=== PATIENT | male | born 1945 | race Caucasian/White ===

== ENCOUNTER 2017-01-05 15:15 | Emergency (ER) | payer MEDICARE, OTHER ==
[2017-01-05 15:28] VITALS: BP 143/73; PULSE 60; TEMP 98.1; BMI 39.9
--- NOTE | 2017-01-05 15:28 | PDOC ---
Rapid Medical Evaluation Time Seen by Provider: 01/05/17 15:23 Medical Evaluation: Allergies Allergy/AdvReac Type Severity Reaction Status Date / Time metoprolol AdvReac Intermediate Verified 01/05/17 15:24 01/05/17 15:27 I have performed a brief in-person evaluation of this patient. The patient presents with a chief complaint of: 71y/o M cardiac hx and COPD p/w 1 wk cough, SOB. int chest pain Pertinent physical exam findings: afebrile, normal O2 sat good air entry, no wheezing I have ordered the following: cardiac workup: labs, ekg, cxr The patient will proceed to the ED for further evaluation.
[2017-01-05 15:56] LABS: INR 2.86 (0.82-1.09); PROTHROMBIN TIME (PATIENT) 32.1 SEC (9.98-11.88)
--- NOTE | 2017-01-05 16:35 | PDOC ---
[id number] is a 71 year old female with a past medical history of COPD, A- Fib( on coumadin) s/p pacemaker ,HTN, hypercholesterolemia, hypothyroidism, unspecified prostate problems Presents with a complaint of intermittent SOB over the past week. Milady lives with a baseline shortness of breath and exercise intolerance secondary to his COPD. Starting about a week ago he states his shortness of breath and exercise tolerance has been getting worse. Patient reports worsened orthopnea Patient uses his albuterol at home with minimal relief of symptoms. Patient reports a productive cough with white sputum and occasional episodes of blood tinged sputum. When patient coughs blood, he reports they are small globs Patient had a fever one week ago which was relieved with aspirin. Mild lightheadedness but no loss of consciousness. He reports congestion. Denies diarrhea, Hematochezia or constipation. Denies urinary urgency, frequency. Hematuria or dysuria. Denies nausea, vomiting. Denies abdominal pain, chest pain. 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 Patient has a history of smoking of 35 years , 1-2 packs a day, Quit 17 years ago. No significant weight loss <Jim Still - Last Filed: 01/05/17 18:03> - General History Source: Patient Exam Limitations: No Limitations <Judah Gruber - Last Filed: 01/08/17 19:48> - General Chief Complaint: Hemoptysis Stated Complaint: SOB, COUGH Time Seen by Provider: 01/05/17 15:23 Past History <Jim Still - Last Filed: 01/05/17 18:03> - Past Medical History Asthma: Yes Cancer: No Cardiac Disorders: Yes (AFIB, PM.) CVA: No COPD: Yes Dementia: No Diabetes: No GI Disorders: No Disorders: No HTN: Yes Hypercholesterolemia: Yes Liver Disease: No Suicide Attempt (Hx): No Seizures: No Thyroid Disease: Yes (hypothyroid) - Surgical History Abdominal Surgery: No Appendectomy: No Cardiac Surgery: Yes (PACEMAKER.) Cholecystectomy: No Lung Surgery: No Neurologic Surgery: No Orthopedic Surgery: Yes (hand sx) - Family Disease History Family Disease History: Other: Mother (non contibutory) - Immunization History Immunization Up to Date: Yes - Psycho/Social/Smoking Cessation Hx Anxiety: No Suicidal Ideation: No Smoking Status: No Smoking History: Former smoker Years of Tobacco Use: 40 Have you smoked in the past 12 months: No Number of Cigarettes Smoked Daily: 0 If you are a former smoker, when did you quit?: 1998 Information on smoking cessation initiated: No Hx Alcohol Use: No Drug/Substance Use Hx: No Substance Use Type: None Hx Substance Use Treatment: No <Judah Gruber - Last Filed: 01/08/17 19:48> - Past Medical History Allergies/Adverse Reactions: Allergies Allergy/AdvReac Type Severity Reaction Status Date / Time metoprolol AdvReac Intermediate Verified 01/05/17 15:24 Home Medications: Ambulatory Orders Cholecalciferol (Vitamin D3) [Vitamin D3] 2,000 unit PO DAILY 03/06/15 Dutasteride/Tamsulosin HCl [Jazmin 0.5-0.4 mg Capsule] 1 each PO PRN 03/06/15 Furosemide [Lasix -] 20 mg PO DAILY 03/06/15 Montelukast Na [Singulair -] 10 mg PO HS 03/06/15 Olmesartan Medoxomil [Benicar -] 20 mg PO BID 03/06/15 Tiotropium Roca [Spiriva] 1 inh PO DAILY PRN 03/06/15 Warfarin Sodium [Coumadin] 4 mg PO HS 10/02/16 Albuterol 0.083% Nebulizer Wendy [Ventolin 0.083% Nebulizer Soln -] 1 neb NEB Q6H 01/05/17 Azithromycin [Zithromax 250mg Tablets -] 250 mg PO DAILY #30 tab 01/05/17 Diltiazem Cd [Cardizem Cd -] 180 mg PO DAILY 01/05/17 Guaifenesin AC [Robitussin AC -] 5 ml PO BID #1 bottle MDD 10 01/05/17 Levothyroxine [Synthroid -] 50 mcg PO DAILY 01/05/17 Salmeterol/Fluticasone [Advair 250Mcg/50Mcg] 1 inh PO BID 01/05/17 Respiratory Specific PMHX - Complaint Specific PMHX Angina: No Bronchitis: No Pneumonia: Yes (recent in July) Pulmonary Embolus: No TB (Tuberculosis): No <Judah Gruber - Last Filed: 01/08/17 19:48> Review of Systems - Review of Systems Able to Perform ROS?: Yes Comments:: 01/05/17 18:04 CONSTITUTIONAL: Reports: fever No reported: Chills, Diaphoresis, Generalized Weakness, Malaise, Loss of Appetite HEENT: Reports: Nasal Congestion, No reported: Rhinorrhea, Throat Pain, Throat Swelling, Difficulty Swallowing, Mouth Swelling, Ear Pain, Eye Pain, Visual Changes CARDIOVASCULAR: No reported: Chest Pain, Syncope, Palpitations, Irregular Heart Rate, Lightheadedness, Peripheral Edema RESPIRATORY: Reports: Cough, Hemoptysis, , Orthopnea, Shortness of Breath, SOB with Exertion, No reported: Wheezing, Stridor, GASTROINTESTINAL: No reported: Abdominal pain, Abdominal Distension, Nausea, Vomiting, Diarrhea, Constipation, Melena, Hematochezia GENITOURINARY: No reported: Dysuria, Frequency, Urgency, Hesitancy, Flank Pain, Genital Pain MUSCULOSKELETAL: No reported: Myalgia, Arthralgia, Joint Swelling, Back pain, Neck Pain SKIN: No reported: Rash, Itching, Pallor HEMEATOLOGIC/IMMUNOLOGIC: No reported: Easy Bleeding, Easy Bruising, Lymphadenopathy, Frequent infections ENDOCRINE: No reported: Unexplained Weight Gain, Unexplained Weight Loss, Heat Intolerance , Cold Intolerance NEUROLOGIC: Reports: Lightheadedness, No reported: Headache, Focal Weakness, Paresthesias, Vertigo, Unsteady Gait, Seizure, Mental Status Changes, Incontinence PSYCHIATRIC: No reported: Anxiety, Depression <Jim Still - Last Filed: 01/05/17 18:03> *Physical Exam - Vital Signs Last Vital Signs Temp Pulse Resp BP Pulse Ox 98.1 F 60 20 143/73 98 01/05/17 15:24 01/05/17 16:42 01/05/17 16:42 01/05/17 15:24 01/05/17 16:42 - Physical Exam Comments: 01/05/17 18:04 GENERAL: Obese : The patient is awake, alert, and fully oriented, Nontoxic - in no acute distress. HEAD: Normocephalic, atraumatic. EYES: extraocular movements intact, sclera anicteric, conjunctiva clear. ENT: Normal voice, Moist mucous membranes. NECK: Normal range of motion, supple LUNGS: Breath sounds equal, clear to auscultation bilaterally. No wheezes, no rhonchi, no rales. HEART: Regular rate and rhythm, without murmur, rub or gallop. ABDOMEN: Soft, nontender, normoactive bowel sounds. No guarding, no rebound.No CVA tenderness EXTREMITIES: Normal range of motion, Trace pitting edema bilaterally, negative homans sign . No clubbing or cyanosis. No cords, erythema, or tenderness. NEUROLOGICAL: No facial assymetry, Normal speech, PSYCH: Normal mood, normal affect. SKIN: Warm, Dry, normal turg <Jim Still - Last Filed: 01/05/17 18:03> - Vital Signs Last Vital Signs Temp Pulse Resp BP Pulse Ox 98.1 F 60 22 143/73 98 01/05/17 15:24 01/05/17 15:24 01/05/17 15:24 01/05/17 15:24 01/05/17 15:24 <Judah Gruber - Last Filed: 01/08/17 19:48> Heart Score/ECG Review - ECG Impressions Comment:: 01/05/17 18:36 Twelve-lead EKG was performed and reviewed by me. EKG performed: 15:39 Paced ventricular rhythm Rate of 60 No signs of ischemia via Sgarbossa criteria <Judah Gruber - Last Filed: 01/08/17 19:48> ED Treatment Course - ADDITIONAL ORDERS Additional order review: Laboratory Results 01/05/17 15:25 INR 2.86 H D - Medications Given in the ED: ED Medications Discontinued Medications Generic Name Dose Route Start Last Admin Trade Name Freq PRN Reason Stop Dose Admin Guaifenesin/Codeine Phosphate 5 ml 01/05/17 17:34 01/05/17 17:36 Robitussin Ac - PO 01/05/17 17:35 5 ml ONCE ONE Administration <Jim Still - Last Filed: 01/05/17 18:03> - LABORATORY CBC & Chemistry Diagram: 01/05/17 18:30 01/05/17 18:30 <Judah Gruber - Last Filed: 01/08/17 19:48> Medical Decision Making - Medical Decision Making 01/05/17 17:26 71y M hx of copd, asthma, afib s/p pm on coumadin, htn, hl, presents with complaint of increasing sob for the past 2 weeks associated with intermittne nasal congestion, cough productive of yellowish sputum that is occasionally blood tinged - no associtated cp, batres, leg swelling. on exam pt well appearing in no distress, lungs are clear, vitals normal. based on sypmtoms suspect possible viral syndrome vs. pna, consider possible pe, however unlikely clinically based on history and that pt is already on a/c. will ck inr to r/o supratherapeutic effect will obtain ekg to r/o arrythmia cxr to r/o pna A portion of this note was documented by scribe services under my direction. I have reviewed the details of the note, within reason, and agree with the documentation with the following case summary and management plan written by me 01/05/17 18:36 pt feeling well inr therapeutic awaiting rest of blood work to come back no pna on cxr pt was abmulating around the ED without any sob or batres suspet her symptoms due to viral syndrome will sign out to dr. johnson to fu with blood work <Judah Gurber - Last Filed: 01/08/17 19:48> *DC/Admit/Observation/Transfer - Attestations Scribe Attestion: 01/05/17 18:04 Documentation prepared by Jim Still, acting as medical affairs director for Judah Gruber MD <Jim Still - Last Filed: 01/05/17 18:03> <Judah Gruber - Last Filed: 01/08/17 19:48> Diagnosis at time of Disposition: Bronchitis, Cough - Discharge Dispostion Disposition: HOME Condition at time of disposition: Stable - Prescriptions Prescriptions: Guaifenesin AC [Robitussin AC -] 5 ml PO BID #1 bottle MDD 10 Azithromycin [Zithromax 250mg Tablets -] 250 mg PO DAILY #30 tab - Referrals Referrals: Angeles Pulliam MD [Primary Care Provider] - - Patient Instructions Printed Discharge Instructions: DI for Cough -- Adult, DI for Acute Bronchitis
[2017-01-05] MEDS ORDERED: guaiFENesin/CODEINE 10 ML UNIT-DOSE CUPS PO ONE (17:25)
[2017-01-05] MEDS ORDERED: guaiFENesin/CODEINE 5 ML UNIT-DOSE CUPS PO ONE ×2 (17:34→17:35)
[2017-01-05 18:42] LABS: BASOPHIL 0.7 % (0-2.0); EOSINOPHIL 3.8 % (0-4.5); MCH 28.5 pg (25.7-33.7); MCHC 33.1 g/dl (32.0-35.9); MEAN CELL VOLUME 86.1 fl (80-96); MEAN PLT VOLUME 8.3 fl (7.5-11.1); NEUTROPHILS 56.4 % (42.8-82.8); PLATELET COUNT 185 K/MM3 (134-434); RDW 15.5 % (11.9-15.9); WHITE BLOOD COUNT 4.4 K/mm3 (4.0-10.0)
[2017-01-05 19:17] LABS: ALBUMIN 3.8 g/dl (3.4-5.0); ANION GAP 9 (8-16); BILIRUBIN,TOTAL 0.4 mg/dL (0.2-1.0); CALCIUM 8.6 mg/dL (8.5-10.1); CO2 26 mmol/L (21-32); CREATININE 1.2 mg/dL (0.7-1.3); GLUCOSE,RANDOM 106 mg/dL (74-106); SGOT/AST 37 U/L (15-37); SGPT/ALT 43 U/L (12-78); TOT PROT 7.2 g/dl (6.4-8.2)
[2017-01-05 19:20] LABS: ALK PHOS 69 U/L (45-117); TROPONIN I < 0.02 ng/ml (0.00-0.05)
--- NOTE | 2017-01-05 20:13 | PDOC ---
*Physical Exam - Vital Signs Last Vital Signs Temp Pulse Resp BP Pulse Ox 98.1 F 60 20 143/73 98 01/05/17 15:24 01/05/17 16:42 01/05/17 16:42 01/05/17 15:24 01/05/17 16:42 ED Treatment Course - LABORATORY CBC & Chemistry Diagram: 01/05/17 18:30 01/05/17 18:30 - ADDITIONAL ORDERS Additional order review: Laboratory Results 01/05/17 01/05/17 18:30 15:25 INR 2.86 H D Sodium 141 Potassium 4.4 D Chloride 106 Carbon Dioxide 26 Anion Gap 9 BUN 14 D Creatinine 1.2 D Creat Clearance w eGFR 59.51 Random Glucose 106 Calcium 8.6 Total Bilirubin 0.4 D AST 37 D ALT 43 Alkaline Phosphatase 69 D Creatine Kinase 146 Troponin I < 0.02 B-Natriuretic Peptide 673.85 H Total Protein 7.2 Albumin 3.8 01/05/17 18:30 RBC 4.38 MCV 86.1 MCHC 33.1 RDW 15.5 MPV 8.3 Neutrophils % 56.4 Lymphocytes % 27.7 D Monocytes % 11.4 H Eosinophils % 3.8 Basophils % 0.7 - Medications Given in the ED: ED Medications Discontinued Medications Generic Name Dose Route Start Last Admin Trade Name Freq PRN Reason Stop Dose Admin Guaifenesin/Codeine Phosphate 10 ml 01/05/17 17:25 01/05/17 18:11 Robitussin Ac - PO 01/05/17 17:26 Not Given ONCE ONE Guaifenesin/Codeine Phosphate 5 ml 01/05/17 17:34 01/05/17 17:36 Robitussin Ac - PO 01/05/17 17:35 5 ml ONCE ONE Administration Medical Decision Making - Medical Decision Making 01/05/17 20:[address] Yuliana Poole. Patient to increase his Lasix for the next 3 days. patient to follow up in the office tomorrow. Prescriptions transmitted to Pharmacy by Dr. Gruber. *DC/Admit/Observation/Transfer Diagnosis at time of Disposition: Bronchitis, Cough - Discharge Dispostion Disposition: HOME Condition at time of disposition: Stable Admit: No - Prescriptions Prescriptions: Guaifenesin AC [Robitussin AC -] 5 ml PO BID #1 bottle MDD 10 Azithromycin [Zithromax 250mg Tablets -] 250 mg PO DAILY #30 tab - Referrals Referrals: Angeles Pulliam MD [Primary Care Provider] - - Patient Instructions Printed Discharge Instructions: DI for Cough -- Adult, DI for Acute Bronchitis - Post Discharge Activity
--- NOTE | 2017-01-06 14:14 | EKG ---
Test Reason : Blood Pressure : / mmHG Vent. Rate : 060 BPM Atrial Rate : 340 BPM P-R Int : 000 ms QRS Dur : 168 ms QT Int : 460 ms P-R-T Axes : 000 -83 068 degrees QTc Int : 460 ms Ventricular-paced rhythm ABNORMAL ECG WHEN COMPARED WITH ECG OF 02-OCT-2016 03:54, ELECTRONIC VENTRICULAR PACEMAKER HAS REPLACED WIDE QRS RHYTHM Confirmed by MICHAEL OROZCO MD ([id number]) on 01/06/2017 2:14:33 PM Referred By: Confirmed By:MICHAEL OROZCO MD
== END 2017-01-05 20:18 | disposition home or self-care (01) ==
LOC: JER 15:15
DX: J20.9 Acute bronchitis, unspecified (principal); I10 Essential (primary) hypertension; I48.91 Unspecified atrial fibrillation; Z79.01 Long term (current) use of anticoagulants; E78.00 Pure hypercholesterolemia, unspecified; E03.9 Hypothyroidism, unspecified; J44.9 Chronic obstructive pulmonary disease, unspecified
CPT/HCPCS: 36415; 71020-TC; 80053; 82550; 83880; 84484; 85025; 85610; 93005; 93010; 99282-25

== ENCOUNTER 2017-08-05 01:50 | Emergency (ER) | payer MEDICARE, OTHER ==
--- NOTE | 2017-08-05 02:10 | PDOC ---
History of Present Illness - General History Source: Patient Exam Limitations: No Limitations - History of Present Illness Initial Comments: 08/05/17 02:15 Patient is a 72 year old with pmhx of COPD, A-Fib( on coumadin) s/p pacemaker , HTN, hypercholesterolemia, and hypothyroidism who presents to the ED with SOB and high BP since 10 PM after eating a small meal. He denies any cp, but reports palpitations and SOB. He also reports sudden swelling of the dorsal aspect of the right wrist. He denies any trauma. He denies any fever or chills. He denies n/v/d or abdominal pain. All - metoprolol PCP - Dr. Juan Pulliam Sheriff Detective - Dr. Smith <Adelina Hull - Last Filed: 08/05/17 02:20> - General History Source: Patient <Arias Mendenhall - Last Filed: 08/05/17 04:40> - General Stated Complaint: DIFFICULTY BREATHING, HIGH BLOOD PRESSURE Time Seen by Provider: 08/05/17 02:07 Past History <Adelina Hull - Last Filed: 08/05/17 02:20> - Past Medical History Asthma: Yes Cancer: No Cardiac Disorders: Yes (AFIB, PM.) CVA: No COPD: Yes Dementia: No Diabetes: No GI Disorders: No Disorders: No HTN: Yes Hypercholesterolemia: Yes Liver Disease: No Seizures: No Thyroid Disease: Yes (hypothyroid) - Surgical History Abdominal Surgery: No Appendectomy: No Cardiac Surgery: Yes (PACEMAKER.) Cholecystectomy: No Lung Surgery: No Neurologic Surgery: No Orthopedic Surgery: Yes (hand sx) - Family Disease History Family Disease History: Other: Mother (non contibutory) - Immunization History Immunization Up to Date: Yes - Suicide/Smoking/Psychosocial Hx Smoking Status: No Smoking History: Former smoker Years of Tobacco Use: 40 Have you smoked in the past 12 months: No Number of Cigarettes Smoked Daily: 0 If you are a former smoker, when did you quit?: 1998 Hx Alcohol Use: No Drug/Substance Use Hx: No Substance Use Type: None Hx Substance Use Treatment: No <Arias Mendenhall - Last Filed: 08/05/17 04:40> - Past Medical History Allergies/Adverse Reactions: Allergies Allergy/AdvReac Type Severity Reaction Status Date / Time metoprolol AdvReac Intermediate Verified 08/05/17 04:18 Home Medications: Ambulatory Orders Cholecalciferol (Vitamin D3) [Vitamin D3] 2,000 unit PO DAILY 03/06/15 Dutasteride/Tamsulosin HCl [Jazmin 0.5-0.4 mg Capsule] 1 each PO PRN 03/06/15 Furosemide [Lasix -] 20 mg PO DAILY 03/06/15 Montelukast Na [Singulair -] 10 mg PO HS 03/06/15 Olmesartan Medoxomil [Benicar -] 20 mg PO BID 03/06/15 Tiotropium Denio [Spiriva] 1 inh PO DAILY PRN 03/06/15 Warfarin Sodium [Coumadin] 4 mg PO HS 10/02/16 Albuterol 0.083% Nebulizer Wendy [Ventolin 0.083% Nebulizer Soln -] 1 neb NEB Q6H 01/05/17 Azithromycin [Zithromax 250mg Tablets -] 250 mg PO DAILY #30 tab 01/05/17 Diltiazem Cd [Cardizem Cd -] 180 mg PO DAILY 01/05/17 Guaifenesin AC [Robitussin AC -] 5 ml PO BID #1 bottle MDD 10 01/05/17 Levothyroxine [Synthroid -] 50 mcg PO DAILY 01/05/17 Salmeterol/Fluticasone [Advair 250Mcg/50Mcg] 1 inh PO BID 01/05/17 Review of Systems - Review of Systems Able to Perform ROS?: Yes Comments:: 08/05/17 02:16 CONSTITUTIONAL: Absent: fever, chills, diaphoresis, generalized weakness, malaise, loss of appetite HEENT: Absent: rhinorrhea, nasal congestion, throat pain, throat swelling, difficulty swallowing, mouth swelling, ear pain, eye pain, visual Changes CARDIOVASCULAR: Present: palpitations Absent: chest pain, syncope, irregular heart rate, lightheadedness, peripheral edema RESPIRATORY: Present: SOB Absent: cough, dyspnea with exertion, orthopnea, wheezing, stridor, hemoptysis GASTROINTESTINAL: Absent: abdominal pain, abdominal distension, nausea, vomiting, diarrhea, constipation, melena, hematochezia GENITOURINARY: Absent: dysuria, frequency, urgency, hesitancy, hematuria, flank pain, genital pain MUSCULOSKELETAL: Present: right wrist swelling Absent: myalgia, arthralgia SKIN: Absent: rash, itching, pallor HEMATOLOGIC/IMMUNOLOGIC: Absent: easy bleeding, easy bruising, lymphadenopathy, frequent infections ENDOCRINE: Absent: unexplained weight gain, unexplained weight loss, heat intolerance, cold intolerance NEUROLOGIC: Absent: headache, focal weakness or paresthesias, dizziness, unsteady gait, seizure, mental status changes, bladder or bowel incontinence PSYCHIATRIC: Absent: anxiety, depression, suicidal or homicidal ideation, hallucinations. <Adelina Hull - Last Filed: 08/05/17 02:20> *Physical Exam - Physical Exam Comments: 08/05/17 02:17 GENERAL: Well developed, well nourished. Awake and alert. In no acute distress. HEENT: Normocephalic, atraumatic. PERRLA, EOMI. No conjunctival pallor. Sclerae are non -icteric. Moist mucous membranes. Oropharynx is clear. NECK: Supple. Full ROM. No JVD. Carotid pulses 2+ and symmetric, without bruits. No thyromegaly. No lymphadenopathy. CARDIOVASCULAR: Good paced rhythm. Regular rate and rhythm. No murmurs, rubs, or gallops. Distal pulses are 2+ and symmetric. PULMONARY: Good air exchange. No evidence of respiratory distress. Lungs clear to auscultation bilaterally. No wheezing, rales or rhonchi. ABDOMINAL: Protuberant belly. Soft. Non-tender. Non-distended. No rebound or guarding. No organomegaly. Normoactive bowel sounds. MUSCULOSKELETAL Normal range of motion at all joints. No bony deformities or tenderness. No CVA tenderness. EXTREMITIES: No cyanosis. No clubbing. No calf tenderness. SKIN: +Fluctuant hematoma to dorsal aspect of the right wrist. Warm and dry. Normal capillary refill. No rashes. No jaundice. NEUROLOGICAL: Alert, awake, appropriate. Cranial nerves 2-12 intact. No deficits to light touch and temperature in face, upper extremities and lower extremities. No motor deficits in the in face, upper extremities and lower extremities. Normoreflexic in the upper and lower extremities. Normal speech. PSYCHIATRIC: Cooperative. Good eye contact. Appropriate mood and affect. <Adelina Hull - Last Filed: 08/05/17 02:20> Heart Score/ECG Review #1 08/05/17 02:21 Venricular paced rhythm at 60 bpm Abnormal ECG <Adelina Hull - Last Filed: 08/05/17 02:20> ED Treatment Course - LABORATORY CBC & Chemistry Diagram: 08/05/17 02:43 08/05/17 02:43 <Arias Mendenhall - Last Filed: 08/05/17 04:40> Medical Decision Making - Medical Decision Making 08/05/17 04:36 Dr. Mendenhall: The scribe's documentation has been prepared under my direction and personally reviewed by me in its entirery. I confirm that the note above accurately reflects all work, treatment, procedures, and medical decision making performed by me. <Arias Mendenhall - Last Filed: 08/05/17 04:40> *DC/Admit/Observation/Transfer - Attestations Scribe Attestion: 08/05/17 02:19 Documentation prepared by ABNER Escobedo, acting as medical voucher clerk for Arias Mendenhall DO. <Adelina Hull - Last Filed: 08/05/17 02:20> - Discharge Dispostion Admit: No <Arias Mendenhall - Last Filed: 08/05/17 04:40> Diagnosis at time of Disposition: Hypertension Qualifiers: Hypertension type: essential hypertension Qualified Code(s): I10 - Essential ( primary) hypertension - Discharge Dispostion Disposition: HOME Condition at time of disposition: Stable - Referrals Referrals: Angeles Pulliam MD [Primary Care Provider] - - Patient Instructions Printed Discharge Instructions: High Blood Pressure Additional Instructions: Please follow up with your doctor this morning to discuss the amount of Coumadin to take the next few days.
[2017-08-05 02:25] VITALS: BP 147/76; PULSE 89; TEMP 98; BMI 40.2
[2017-08-05 02:52] LABS: BASOPHIL 0.6 % (0-2.0); EOSINOPHIL 5.4 % (0-4.5); MCHC 33.7 g/dl (32.0-35.9); MEAN CELL VOLUME 86.2 fl (80-96); MEAN PLT VOLUME 8.3 fl (7.5-11.1); PLATELET COUNT 178 K/MM3 (134-434); RDW 15.7 % (11.9-15.9); WHITE BLOOD COUNT 5.7 K/mm3 (4.0-10.0)
[2017-08-05 03:12] LABS: INR 3.27 (0.82-1.09); PROTHROMBIN TIME (PATIENT) 36.9 SEC (9.98-11.88)
[2017-08-05 03:21] LABS: ALBUMIN 3.7 g/dl (3.4-5.0); ANION GAP 7 (8-16); BILIRUBIN,TOTAL 0.3 mg/dL (0.2-1.0); CALCIUM 8.5 mg/dL (8.5-10.1); CO2 27 mmol/L (21-32); CPK 160 IU/L (39-308); CREATININE 1.3 mg/dL (0.7-1.3); GLUCOSE,RANDOM 136 mg/dL (74-106); SGOT/AST 23 U/L (15-37); SGPT/ALT 26 U/L (12-78); TOT PROT 6.8 g/dl (6.4-8.2)
[2017-08-05 03:23] LABS: ALK PHOS 94 U/L (45-117); TROPONIN I < 0.02 ng/ml (0.00-0.05)
--- NOTE | 2017-08-05 10:41 | EKG ---
Test Reason : Blood Pressure : / mmHG Vent. Rate : 060 BPM Atrial Rate : 050 BPM P-R Int : 000 ms QRS Dur : 172 ms QT Int : 464 ms P-R-T Axes : 000 -74 076 degrees QTc Int : 464 ms Ventricular-paced rhythm ABNORMAL ECG WHEN COMPARED WITH ECG OF 05-JAN-2017 15:39, NO SIGNIFICANT CHANGE WAS FOUND Confirmed by OFELIA ALONSO MD ([id number]) on 08/05/2017 10:41:11 AM Referred By: Confirmed By:OFELIA ALONSO MD
== END 2017-08-05 04:45 | disposition home or self-care (01) ==
LOC: JER 01:50
DX: I10 Essential (primary) hypertension (principal); J44.9 Chronic obstructive pulmonary disease, unspecified; I48.91 Unspecified atrial fibrillation; E78.00 Pure hypercholesterolemia, unspecified; E03.9 Hypothyroidism, unspecified; Z87.891 Personal history of nicotine dependence
CPT/HCPCS: 36415; 71010-TC; 80053; 82553; 83735; 83880; 84484; 85025; 85610; 86850; 86900; 86901; 93005; 93010; 99281-25

== ENCOUNTER 2017-09-27 11:49 | Emergency (ER) | payer MEDICARE, OTHER ==
[2017-09-27 11:54] VITALS: BP 163/42; PULSE 60; TEMP 98.6; BMI 41.2
--- NOTE | 2017-09-27 14:58 | PDOC ---
Attending Attestation - Resident Resident Name: Cheyenne Zimmerman - HPI HPI: 10/04/17 16:00 Pt presents to the ED complaining of cough productive of phlegm and chest pain with cough only. Pain is left sided, sharp, and occurs only after cough. - Physicial Exam PE: 10/04/17 16:02 Agree with resident exam. Lungs are clear with good air entry. - Medical Decision Making 10/04/17 16:04 Pt presents to the ED complaining of sharp, pleuritic chest pain with cough only. EKG shows no evidence of ischemia. Pain is extremely atypical of cardiac disease. CXR is negative for PNA, but given history of COPD and increase in sputum production, will treat with antibiotics. Will discharge home.
--- NOTE | 2017-09-27 15:11 | PDOC ---
History of Present Illness - History of Present Illness Initial Comments: This is a 72 YOM with h/o COPD, frequent bronchitis, A-fib on coumadin s/p pacemaker placement, HTN, HLD, and hypothyroidism who presents with cough productive of white sputum, sore throat, SOB, and left-sided chest pain with coughing. The symptoms started about 2 weeks ago but worsened acutely three days ago and have kept him from sleeping more than and hour or two each night. His chest pain reaches 2/10 maximum. His states that his voice additionally sounds hoarse, and the patient notes painful swallowing and choking sensation when he is eating, as well as head-to-toe body aches. He denies any fever, chills, nausea, vomiting, rashes, sinus pain, or other symptoms. He has taken Advil and other OTC pain and fever medications. He also has used his Albuterol nebulizer at home with incomplete relief, and has been taking a Z-pack from prior prescription (5 pills taken so far) without change. He has had contact with his granddaughter who has been ill with similar symptoms. <Cheyenne Zimmerman - Last Filed: 09/27/17 19:07> <Jose De Jesus Heredia - Last Filed: 09/27/17 19:09> - General Chief Complaint: Chest Pain Stated Complaint: CHEST PAIN Time Seen by Provider: 09/27/17 14:51 Past History - Past Medical History Asthma: Yes Cancer: No Cardiac Disorders: Yes (AFIB, PM.) CVA: No COPD: Yes Dementia: No Diabetes: No GI Disorders: No Disorders: No HTN: Yes Hypercholesterolemia: Yes Liver Disease: No Seizures: No Thyroid Disease: Yes (hypothyroid) Other medical history: bph - Surgical History Abdominal Surgery: No Appendectomy: No Cardiac Surgery: Yes (PACEMAKER.) Cholecystectomy: No Lung Surgery: No Neurologic Surgery: No Orthopedic Surgery: Yes (hand sx) - Family Disease History Family Disease History: Other: Mother (non contibutory) - Immunization History Immunization Up to Date: Yes - Suicide/Smoking/Psychosocial Hx Smoking Status: No Smoking History: Former smoker Years of Tobacco Use: 40 Have you smoked in the past 12 months: No Number of Cigarettes Smoked Daily: 0 If you are a former smoker, when did you quit?: 1998 Information on smoking cessation initiated: No Hx Alcohol Use: No Drug/Substance Use Hx: No Substance Use Type: None Hx Substance Use Treatment: No <Cheyenne Zimmerman - Last Filed: 09/27/17 19:07> <Jose De Jesus Heredia - Last Filed: 09/27/17 19:09> - Past Medical History Allergies/Adverse Reactions: Allergies Allergy/AdvReac Type Severity Reaction Status Date / Time metoprolol AdvReac Intermediate Verified 09/27/17 11:52 Home Medications: Ambulatory Orders Cholecalciferol (Vitamin D3) [Vitamin D3] 2,000 unit PO DAILY 03/06/15 Dutasteride/Tamsulosin HCl [Jazmin 0.5-0.4 mg Capsule] 1 each PO PRN 03/06/15 Furosemide [Lasix -] 20 mg PO DAILY 03/06/15 Montelukast Na [Singulair -] 10 mg PO HS 03/06/15 Olmesartan Medoxomil [Benicar -] 20 mg PO BID 03/06/15 Tiotropium [place] [Spiriva] 1 inh PO DAILY PRN 03/06/15 Warfarin Sodium [Coumadin] 4 mg PO HS 10/02/16 Albuterol 0.083% Nebulizer Wendy [Ventolin 0.083% Nebulizer Soln -] 1 neb NEB Q6H 01/05/17 Azithromycin [Zithromax 250mg Tablets -] 250 mg PO DAILY #30 tab 01/05/17 Diltiazem Cd [Cardizem Cd -] 180 mg PO DAILY 01/05/17 Guaifenesin AC [Robitussin AC -] 5 ml PO BID #1 bottle MDD 10 01/05/17 Levothyroxine [Synthroid -] 50 mcg PO DAILY 01/05/17 Salmeterol/Fluticasone [Advair 250Mcg/50Mcg] 1 inh PO BID 01/05/17 Azithromycin [Zithromax 1gm Fermin -] 1 gm PO ONCE #1 packet 09/27/17 Prednisone [Deltasone] 40 mg PO DAILY #4 tablet 09/27/17 Respiratory Specific PMHX - Complaint Specific PMHX Angina: No Bronchitis: No Pneumonia: Yes (recent in July) Pulmonary Embolus: No TB (Tuberculosis): No <Zimmerman,Cheyenne - Last Filed: 09/27/17 19:07> Review of Systems - Review of Systems Constitutional: Yes: Malaise. No: Chills, Fever, Unexplained wgt Loss HEENTM: Yes: Nose Congestion, Throat Pain Respiratory: Yes: Cough, Shortness of Breath, Productive cough Cardiac (ROS): Yes: Chest Pain. No: Palpitations ABD/GI: No: Constipated, Diarrhea, Nausea, Vomiting : No: Burning, Dysuria Musculoskeletal: No: Back Pain, Neck Pain Integumentary: No: Bruising, Rash Neurological: No: Headache, Numbness, Tingling, Weakness, Dizziness Endocrine: No: Unexplained Weight Gain, Unexplained Weight Loss <Cheyenne Zimmerman - Last Filed: 09/27/17 19:07> *Physical Exam - Vital Signs Last Vital Signs Temp Pulse Resp BP Pulse Ox 98.6 F 60 18 163/42 100 09/27/17 11:52 09/27/17 11:52 09/27/17 11:52 09/27/17 11:52 09/27/17 11:52 - Physical Exam General Appearance: Yes: Nourished, Appropriately Dressed, Obese, Other ( wearing face mask, answering questions appropriately, accompanied by who is supportive, sounds hoarse). No: Apparent Distress HEENT: positive: EOMI, Muffled/Hoarse voice, Nasal Congestion, Rhinorrhea, Hearing Grossly Normal. negative: Scleral Icterus (R), Scleral Icterus (L), Pharyngeal Erythema, Tonsillar Exudate, Tonsillar Erythema, Sinus Tenderness, Excessive drooling Neck: positive: Tender (mild tender right submandibular lymphadenopathy, no posterior cervical lymphadenopathy), Trachea midline, Supple. negative: Rigid Respiratory/Chest: positive: Lungs Clear, Normal Breath Sounds. negative: Respiratory Distress, Crackles, Rhonchi, Stridor, Wheezing Cardiovascular: positive: Regular Rhythm, Regular Rate. negative: Murmur Gastrointestinal/Abdominal: positive: Normal Bowel Sounds, Soft. negative: Tender, Organomegaly, Pulsatile Mass, Guarding Musculoskeletal: positive: Normal Inspection. negative: Decreased Range of Motion, Vertebral Tenderness Extremity: positive: Normal Capillary Refill, Normal Inspection, Normal Range of Motion. negative: Tender, Cyanosis Integumentary: positive: Normal Color, Dry, Warm. 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 II-XII NML intact (grossly), Fully Oriented, Alert, Normal Mood/Affect, Normal Response, Motor Strength 5/5 <Cheyenne Zimmerman - Last Filed: 09/27/17 19:07> - Vital Signs Last Vital Signs Temp Pulse Resp BP Pulse Ox 98.6 F 60 18 163/42 100 09/27/17 11:52 09/27/17 11:52 09/27/17 11:52 09/27/17 11:52 09/27/17 11:52 <Jose De Jesus Heredia - Last Filed: 09/27/17 19:09> Heart Score/ECG Review #1 09/27/17 19:08 Vent rate 60 bpm Ventricular paced rhythm Abnormal ECG <Jose De Jesus Heredia - Last Filed: 09/27/17 19:09> Medical Decision Making - Medical Decision Making This is a 72 YOM with h/o COPD, A-fib on warfarin, and pacemaker placement who presents with cough, phlegm, sore throat. Also with chest pain which comes on only while coughing and reaches 2/10 maximum. Taking Z-pack at home from a prior prescription. On exam he has mild hypertension but vitals otherwise wnl. Right submandibular lymphadenopathy, occasional productive cough, but no other significant findings. 09/27/17 17:31 Patient's CXR has been completed and does not appear to suggest acute cardiopulmonary processes. Pacer leads are in good location. 09/27/17 18:54 EKG with ventricular pacing, no acute ischemic changes. Pt given E-Rx for another Z-pack as he likely has COPD exacerbation with overlying bronchitis. <ElsieCheyenne - Last Filed: 09/27/17 19:07> *DC/Admit/Observation/Transfer - Discharge Dispostion Admit: No <ZimmermanCheyenne - Last Filed: 09/27/17 19:07> <Jose De Jesus Heredia - Last Filed: 09/27/17 19:09> Diagnosis at time of Disposition: COPD Acute exacerbation of chronic obstructive airways disease, Bronchitis - Discharge Dispostion Disposition: HOME Condition at time of disposition: Stable - Prescriptions Prescriptions: Azithromycin [Zithromax 1gm Fermin -] 1 gm PO ONCE #1 packet Prednisone [Deltasone] 40 mg PO DAILY #4 tablet - Referrals Referrals: Angeles Pulliam MD [Primary Care Provider] - - Patient Instructions Printed Discharge Instructions: DI for Acute Bronchitis Additional Instructions: You were seen in the ER for cough with phlegm, shortness of breath, and chest pain with coughing. We did blood labs, a chest x-ray, and an electrocardiogram which were not concerning. However, based on your clinical exam we believe you have a COPD flare with bronchitis. We gave you a dose of prednisone here in the ER and are sending electronic prescriptions for prednisone and another Z-pack to your pharmacy. Please take the whole antibiotic course, and the whole prednisone course. Follow up with your regular doctor or return to the ER with any new symptoms like fever, difficulty breathing despite using your nebulizer treatments and prednisone, severe chest pain, or other symptoms. Print Language: DOMINICAN - Post Discharge Activity
[2017-09-27] MEDS ORDERED: predniSONE 20 MG TABLET (UD) PO ONE (19:02)
[2017-09-27] MEDS ORDERED: predniSONE 20 MG TABLET (UD) ONE (19:36)
--- NOTE | 2017-09-28 18:22 | EKG ---
Test Reason : Blood Pressure : / mmHG Vent. Rate : 060 BPM Atrial Rate : 079 BPM P-R Int : 000 ms QRS Dur : 172 ms QT Int : 462 ms P-R-T Axes : 000 -75 075 degrees QTc Int : 462 ms Ventricular-paced rhythm ABNORMAL ECG WHEN COMPARED WITH ECG OF 05-AUG-2017 02:05, NO SIGNIFICANT CHANGE WAS FOUND BASELINE ARTIFACT CLINICAL CORRELATION IS RECOMMENDED Confirmed by KAROLINE JIMENEZ MD ([id number]) on 09/28/2017 6:21:55 PM Referred By: Confirmed By:KAROLINE JIMENEZ MD
--- NOTE | 2017-10-06 12:55 | EKG ---
Test Reason : Blood Pressure : / mmHG Vent. Rate : 060 BPM Atrial Rate : 051 BPM P-R Int : 000 ms QRS Dur : 168 ms QT Int : 486 ms P-R-T Axes : 000 -79 064 degrees QTc Int : 486 ms POOR DATA QUALITY, INTERPRETATION MAY BE ADVERSELY AFFECTED Ventricular-paced rhythm ABNORMAL ECG WHEN COMPARED WITH ECG OF 27-SEP-2017 11:59, NO SIGNIFICANT CHANGE WAS FOUND Confirmed by MICHAEL OROZCO MD ([id number]) on 10/06/2017 12:55:27 PM Referred By: Confirmed By:MICHAEL OROZCO MD
== END 2017-09-27 19:43 | disposition home or self-care (01) ==
LOC: JER 11:49
DX: J44.1 Chronic obstructive pulmonary disease with (acute) exacerbation (principal); J20.9 Acute bronchitis, unspecified; I10 Essential (primary) hypertension; E78.00 Pure hypercholesterolemia, unspecified; N40.0 Benign prostatic hyperplasia without lower urinary tract symptoms; E03.9 Hypothyroidism, unspecified; I48.91 Unspecified atrial fibrillation; Z79.01 Long term (current) use of anticoagulants
CPT/HCPCS: 71020-TC; 93005; 93010; 99281-25

== ENCOUNTER 2018-12-20 22:06 | Emergency (ER) | payer MEDICARE, OTHER ==
[2018-12-20 22:18] VITALS: BP 141/70; PULSE 60; TEMP 99.1; BMI 39.6
[2018-12-20] MEDS ORDERED: DIPHTH,PERTUSS(ACELL),TET 0.5 ML DISP.SYRIN IM ONE ×2 (22:43→22:47)
--- NOTE | 2018-12-20 22:47 | PDOC ---
History of Present Illness - General Chief Complaint: Injury Stated Complaint: LACERATION Time Seen by Provider: 12/20/18 22:39 - History of Present Illness Initial Comments: 12/20/18 22:44 73-year-old male with multiple comorbidities presents for evaluation of a puncture wound of his right great toe. While at home cooking and knife dropped went through his bare skin into his great toe. The dressing was placed and he comes to the emergency room for further evaluation. He is not current on tetanus. Past History - Past Medical History Allergies/Adverse Reactions: Allergies Allergy/AdvReac Type Severity Reaction Status Date / Time metoprolol AdvReac Intermediate Verified 12/20/18 22:08 Home Medications: Ambulatory Orders Cholecalciferol (Vitamin D3) [Vitamin D3] 2,000 unit PO DAILY 03/06/15 Dutasteride/Tamsulosin HCl [Jazmin 0.5-0.4 mg Capsule] 1 each PO PRN 03/06/15 Furosemide [Lasix -] 20 mg PO DAILY 03/06/15 Montelukast Na [Singulair -] 10 mg PO HS 03/06/15 Olmesartan Medoxomil [Benicar -] 20 mg PO BID 03/06/15 Tiotropium [place] [Spiriva] 1 inh PO DAILY PRN 03/06/15 Warfarin Sodium [Coumadin] 4 mg PO HS 10/02/16 Albuterol 0.083% Nebulizer Wendy [Ventolin 0.083% Nebulizer Soln -] 1 neb NEB Q6H 01/05/17 Diltiazem Cd [Cardizem Cd -] 180 mg PO DAILY 01/05/17 Levothyroxine [Synthroid -] 50 mcg PO DAILY 01/05/17 Salmeterol/Fluticasone [Advair 250Mcg/50Mcg] 1 inh PO BID 01/05/17 Cephalexin [Keflex] 500 mg PO QID #20 capsule 12/20/18 Asthma: Yes Cancer: No Cardiac Disorders: Yes (AFIB, PM.) CVA: No COPD: Yes Dementia: No Diabetes: No GI Disorders: No Disorders: No HTN: Yes Hypercholesterolemia: Yes Liver Disease: No Seizures: No Thyroid Disease: Yes (hypothyroid) - Surgical History Abdominal Surgery: No Appendectomy: No Cardiac Surgery: Yes (PACEMAKER.) Cholecystectomy: No Lung Surgery: No Neurologic Surgery: No Orthopedic Surgery: Yes (hand sx) - Family Disease History Family Disease History: Other: Mother (non contibutory) - Immunization History Immunization Up to Date: Yes - Suicide/Smoking/Psychosocial Hx Smoking Status: No Smoking History: Former smoker Years of Tobacco Use: 40 Have you smoked in the past 12 months: No Number of Cigarettes Smoked Daily: 0 If you are a former smoker, when did you quit?: 1998 Information on smoking cessation initiated: No Hx Alcohol Use: No Drug/Substance Use Hx: No Substance Use Type: None Hx Substance Use Treatment: No Review of Systems - Review of Systems Integumentary: Yes: See HPI *Physical Exam - Vital Signs Last Vital Signs Temp Pulse Resp BP Pulse Ox 99.1 F 60 18 141/70 97 12/20/18 22:09 12/20/18 22:09 12/20/18 22:09 12/20/18 22:09 12/20/18 22:09 - Physical Exam Comments: 12/20/18 22:44 Right great toe skin color and temperature are normal. There is a linear puncture wound adjacent to the medial nail fold. There is no subcutaneous fat exposed. There is full range of motion of toe without gross sensorimotor deficits. Moderate Sedation - Procedure Monitoring Vital Signs: Procedure Monitoring Vital Signs Temperature 99.1 F 12/20/18 22:09 Pulse Rate 60 12/20/18 22:09 Respiratory Rate 18 12/20/18 22:09 Blood Pressure 141/70 12/20/18 22:09 O2 Sat by Pulse Oximetry (%) 97 12/20/18 22:09 ED Treatment Course - RADIOLOGY Radiology Studies Ordered: Category Date Time Status TOE(S) RIGHT [RAD] Stat Radiology 12/20/18 22:43 Ordered Medical Decision Making - Medical Decision Making 12/20/18 22:45 Tetanus updated, prophylactic antibiotics prescribed, chlorhexidine scrub and dry sterile dressing placed orthopedic surgery follow-up given. 12/20/18 22:46 no fx *DC/Admit/Observation/Transfer Diagnosis at time of Disposition: Puncture wound of toe of right foot - Discharge Dispostion Disposition: HOME Condition at time of disposition: Stable Decision to Admit order: No - Prescriptions Prescriptions: Cephalexin [Keflex] 500 mg PO QID #20 capsule - Referrals Referrals: Angeles Pulliam MD [Primary Care Provider] - Steffen Kraft DO [Staff Physician] - - Patient Instructions Printed Discharge Instructions: DI for Puncture Wound Additional Instructions: Please take the antibiotics as directed. Your tetanus was updated. Tylenol as directed and as needed for pain. Return to the emergency room should symptoms worsen or go unresolved and follow-up with orthopedic surgery in 1-2 days for further evaluation and treatment options. Leese keep the dressing on for the next 48 hours. After 48 hours and may remove the dressing and wash the area with soap and water and leave it open to air. Do not take a bath or submergent toe until the prednisone is well-healed. - Post Discharge Activity
== END 2018-12-20 23:02 | disposition home or self-care (01) ==
LOC: JERFT 22:06
PROC: 3E0234Z Introduction of Serum, Toxoid and Vaccine into Muscle, Percutaneous Approach (ICD-10-PCS; principal; 2018-12-20)
DX: S91.131A Puncture wound without foreign body of right great toe without damage to nail, initial encounter (principal); W26.0XXA Contact with knife, initial encounter; Y93.G3 Activity, cooking and baking; Y92.030 Kitchen in apartment as the place of occurrence of the external cause; Y99.8 Other external cause status; I48.91 Unspecified atrial fibrillation; Z79.01 Long term (current) use of anticoagulants; I10 Essential (primary) hypertension; E03.9 Hypothyroidism, unspecified; E78.00 Pure hypercholesterolemia, unspecified; J44.9 Chronic obstructive pulmonary disease, unspecified; Z95.0 Presence of cardiac pacemaker
CPT/HCPCS: 73660-TC-FY; 90471; 90715; 99281-25

== ENCOUNTER 2019-03-04 14:39 | Observation (INO) | payer MEDICARE, OTHER ==
--- NOTE | 2019-03-04 17:13 | PDOC ---
Documentation entered by Yolanda Gusman SCRIBE, acting as scribe for Traci Vázquez MD. Traci Vázquez MD: This documentation has been prepared by the allanibeNaseem Victoria, SCRIBE, under my direction and personally reviewed by me in its entirety. I confirm that the documentation accurately reflects all work, treatment, procedures, and medical decision making performed by me. History of Present Illness - General Chief Complaint: Chest Pain Stated Complaint: DIZZINESS History Source: Patient Exam Limitations: No Limitations - History of Present Illness Initial Comments: 03/04/19 17:23 Patient is a 73 year old male with past medical history of hypertension, hyperlipidemia, COPD, cardiac valve insufficiency (on coumadin), s/p pacemaker who presents to the ED with complaints of chest pain x1 day. He reports driving last night and experiencing a left sided, substernal, non-radiating chest pain with associated lightheadedness and shortness that lasted about two hours. He reports these symptoms returned this morning, prompting him to come to the ED. He denies any palpitations or syncope. He denies any fevers, chills, NVD, cough , or urinary symptoms. Denies any lower extremity edema. No history of PE or DVT. Patient was referred to a cardiothoracic surgeon for a valve repair but has not followed up. Cardiology: Dr. Smith. PCP: Dr. Izabela Pulliam Past History - Past Medical History Allergies/Adverse Reactions: Allergies Allergy/AdvReac Type Severity Reaction Status Date / Time metoprolol AdvReac Intermediate Verified 03/04/19 18:18 Home Medications: Ambulatory Orders Cholecalciferol (Vitamin D3) [Vitamin D3] 2,000 unit PO DAILY 03/06/15 Dutasteride/Tamsulosin HCl [Jazmin 0.5-0.4 mg Capsule] 1 each PO PRN 03/06/15 Furosemide [Lasix -] 20 mg PO DAILY 03/06/15 Montelukast Na [Singulair -] 10 mg PO HS 03/06/15 Olmesartan Medoxomil [Benicar -] 20 mg PO BID 03/06/15 Tiotropium [place] [Spiriva] 1 inh PO DAILY PRN 03/06/15 Warfarin Sodium [Coumadin] 4 mg PO HS 10/02/16 Albuterol 0.083% Nebulizer Wendy [Ventolin 0.083% Nebulizer Soln -] 1 neb NEB Q6H 01/05/17 Diltiazem Cd [Cardizem Cd -] 180 mg PO DAILY 01/05/17 Levothyroxine [Synthroid -] 50 mcg PO DAILY 01/05/17 Salmeterol/Fluticasone [Advair 250Mcg/50Mcg] 1 inh PO BID 01/05/17 Atorvastatin Calcium 40 mg PO DAILY 03/04/19 Umeclidinium [place] [Incruse Ellipta] 62.5 mcg IH [id number] 03/04/19 Asthma: Yes Cancer: No Cardiac Disorders: Yes (AFIB, PM.) CVA: No COPD: Yes Dementia: No Diabetes: No GI Disorders: No Disorders: No HTN: Yes Hypercholesterolemia: Yes Liver Disease: No Seizures: No Thyroid Disease: Yes (hypothyroid) - Surgical History Abdominal Surgery: No Appendectomy: No Cardiac Surgery: Yes (PACEMAKER.) Cholecystectomy: No Lung Surgery: No Neurologic Surgery: No Orthopedic Surgery: Yes (hand sx) - Family Disease History Family Disease History: Other: Mother (non contibutory) - Immunization History Immunization Up to Date: Yes - Suicide/Smoking/Psychosocial Hx Smoking Status: No Smoking History: Unknown if ever smoked Years of Tobacco Use: 40 Have you smoked in the past 12 months: No Number of Cigarettes Smoked Daily: 0 If you are a former smoker, when did you quit?: 1998 Hx Alcohol Use: No Drug/Substance Use Hx: No Substance Use Type: None Hx Substance Use Treatment: No Review of Systems - Review of Systems Constitutional: No: Chills, Diaphoresis, Fever HEENTM: No: Eye Pain, Blurred Vision Respiratory: Yes: Shortness of Breath. No: Cough, Orthopnea Cardiac (ROS): Yes: Chest Pain. No: Edema Musculoskeletal: No: See HPI, Back Pain Integumentary: No: Bruising, Change in Color All Other Systems: Reviewed and Negative *Physical Exam - Vital Signs Last Vital Signs Temp Pulse Resp BP Pulse Ox 97.9 F 61 20 136/64 98 03/04/19 14:42 03/04/19 14:42 03/04/19 14:42 03/04/19 14:42 03/04/19 14:42 - Physical Exam Comments: 03/04/19 17:11 awake alert lungs clear bilaterally heart rrr no appreciated murmur, abd soft nt nd obese. ext wwp no edema. no calf tenderness. symmetric pulses bilaterally. Heart Score/ECG Review #1 General ECG Interpretation: Normal Rate (60 paed. wide qrs,), Normal Intervals, No acute ischemic changes Compared to previous ECG there are: Other (left axis) ED Treatment Course - LABORATORY CBC & Chemistry Diagram: 03/04/19 17:20 03/04/19 17:20 Medical Decision Making - Medical Decision Making 03/04/19 17:12 73 yo male h/o htn hld copd pacer valve insufficiency here with recurrent cp and sob, dizziness. differential anemia chf acs, infection such as pneumonia. plan labs coags, trop ekg cxr will likely require tele obs r/o acs. will contact dr oliva progress clerk. awaiting callback. 03/04/19 17:20 Phone call placed to Dr. Smith. Awaiting call back. 03/04/19 17:[address] Sun, covering physician for Dr. Smith. Case was discussed. 03/04/19 17:42 d/w dr Villareal, progress clerk covering for Dr Oliva, reviews pt records. h/o severe mitral regurgitation, no prior cardiac ischemic workup. were considering a mitral clip instead of open heart surgery, february 28 was last visit for dr oliva. january 26 2019 had echo good lv function severe la enlargement severe mitral regurg. 03/04/19 18:11 Microblog sent to [facility]. Awaiting call back. 03/04/19 18:57 Call returned by [facility]. Case discussed. 03/04/19 19:01 d/w admitting team will admit ro acs *DC/Admit/Observation/Transfer Diagnosis at time of Disposition: Chest pain - Discharge Dispostion Decision to Admit order: Yes - Referrals Referrals: Angeles Pulliam MD [Primary Care Provider] - - Patient Instructions - Post Discharge Activity
[2019-03-04 17:31] LABS: BASO % 0.9 % (0-2.0); EOS % 1.8 % (0-4.5); HEMATOCRIT 39.9 % (35.4-49); HEMOGLOBIN 13.4 GM/dL (11.7-16.9); LYMPH % 28.7 % (8-40); MCH 29.4 pg (25.7-33.7); MCHC 33.4 g/dl (32.0-35.9); MEAN CELL VOLUME 87.9 fl (80-96); MONO % 9.4 % (3.8-10.2); NEUT % 59.2 % (42.8-82.8); PLATELET COUNT 187 K/MM3 (134-434); RBC 4.54 M/mm3 (4.00-5.60); RDW 15.8 % (11.9-15.9); WHITE BLOOD COUNT 5.4 K/mm3 (4.0-10.0)
[2019-03-04] MEDS ORDERED: ASPIRIN 81 MG CHEWABLE TABLETS PO ONE ×2 (17:46→19:00)
[2019-03-04 18:06] LABS: ALBUMIN 2.4 g/dl (3.4-5.0); ALK PHOS 70 U/L (45-117); ANION GAP 6 MMOL/L (8-16); BILIRUBIN,TOTAL 0.4 mg/dL (0.2-1); BLOOD UREA NITROGEN 16 mg/dL (7-18); CALCIUM 8.4 mg/dL (8.5-10.1); CHLORIDE 108 mmol/L (98-107); CO2 27 mmol/L (21-32); CREATININE 1.1 mg/dL (0.55-1.3); GLUCOSE,RANDOM 97 mg/dL (74-106); POTASSIUM 4.8 mmol/L (3.5-5.1); SGOT/AST 35 U/L (15-37); SGPT/ALT 24 U/L (13-61); SODIUM 140 mmol/L (136-145)
[2019-03-04] MEDS ORDERED: NITROGLYCERIN SUBLINGUAL 1/150 0.4 MG TAB SL PRN (18:37)
[2019-03-04] MEDS ORDERED: ALBUTEROL SO4 0.083% IH SOL 2.5 MG/3 ML VIAL.NEB. NEB ONE (19:46)
[2019-03-04] MEDS ORDERED: ASPIRIN 81 MG CHEWABLE TABLETS ONE (19:47)
--- NOTE | 2019-03-04 19:58 | HP ---
Admitting History and Physical - Primary Care Physician PCP: Angeles Pulliam - Admission Chief Complaint: Chest pain and shortness of breath History of Present Illness: 73 year old M with h/o hypertension, hyperlipidemia, COPD, MVR, afib (on coumadin) and hypothyroidism presents for evaluation after experiencing new onset chest pain and shortness of breath. As per outpatient cardiology records, Mr. Wolff, has h/o severe mitral regurg, he does not wish to pursue open heart surgery, but is amenable to mitral clip. Pt reports last stress test was approximately 4yrs ago, he does not recall test results, but reports being unable to complete testing. His last echo was on 01/[address] [address] tech, preserved LV function, LAE and severe MR. Mr. Wolff endorses his first episode of chest pain on the afternoon of 03/03, while driving. He was speaking to a friend while driving when he noted that he as dsypneic during his conversation, associated sx include left sided chest pain (2/10 dull ache) dizziness, palpitations, and headache. Pt pulled off the road until sx subsided, but noted that the entire ordeal last approximately 60min. He denies fevers, chills, N/V, visual disturbances, neck or arm pain. Eulogio reports a second episode of similar sx today 03/04 after he ate lunch. He was at rest when he noted bilateral chest pain (4/10), dizziness, SOB, diaphoresis and near syncope. Pt decided to visit ED for urgent evaluation. In ED: Vitals were: BP 136/64, HR 61, RR 20, T 97.9, O2 sat 98% CXR: clear lungs EKG: V-paced 60bpm CArdiac enzymes negative INR 2.39, pt dosed coumadin for afib call box wirer cardiology Dr. Sun consulted. Patient follows with Dr. Smith and after review of outpt medical records, decision made to admit since patient does not have recent cardiac ischemic work up. PROVIDERS: Cardiology: Dr. Smith. PCP: Dr. Izabela Pulliam History Source: Patient Limitations to Obtaining History: No Limitations - Past Medical History Cardiovascular: Yes: AFIB, HTN, Hyperlipdemia, Mitral Insufficiency Pulmonary: Yes: COPD, Sleep Apnea Endocrine: Yes: Hypothyroidism - Past Surgical History Past Surgical History: Yes: Permanent Pacemaker Additional Past Surgical History: Ortho: Hand Surgery - Smoking History Smoking history: Former smoker (1PPD x 35years, d/sal 1998) Have you smoked in the past 12 months: No Aproximately how many cigarettes per day: 0 If you are a former smoker, when did you quit?: 1998 - Alcohol/Substance Use Hx Alcohol Use: Yes (prior use 15-18beers on wed and wednesday x 25yrs, he currently does not drink) History of Substance Use: reports: None - Social History Usual Living Arrangement: Yes: With Spouse ADL: Independent 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 History of Recent Travel: No Other Social History: Born in [facility], emigrated in 1966 Home Medications - Allergies Allergies/Adverse Reactions: Allergies Allergy/AdvReac Type Severity Reaction Status Date / Time metoprolol AdvReac Intermediate Verified 03/04/19 18:18 - Home Medications Home Medications: Ambulatory Orders Cholecalciferol (Vitamin D3) [Vitamin D3] 2,000 unit PO DAILY 03/06/15 Dutasteride/Tamsulosin HCl [Jazmin 0.5-0.4 mg Capsule] 1 each PO PRN 03/06/15 Furosemide [Lasix -] 20 mg PO DAILY 03/06/15 Montelukast Na [Singulair -] 10 mg PO HS 03/06/15 Olmesartan Medoxomil [Benicar -] 20 mg PO BID 03/06/15 Tiotropium [place] [Spiriva] 1 inh PO DAILY PRN 03/06/15 Warfarin Sodium [Coumadin] 4 mg PO HS 10/02/16 Albuterol 0.083% Nebulizer Wendy [Ventolin 0.083% Nebulizer Soln -] 1 neb NEB Q6H 01/05/17 Diltiazem Cd [Cardizem Cd -] 180 mg PO DAILY 01/05/17 Levothyroxine [Synthroid -] 50 mcg PO DAILY 01/05/17 Salmeterol/Fluticasone [Advair 250Mcg/50Mcg] 1 inh PO BID 01/05/17 Atorvastatin Calcium 40 mg PO DAILY 03/04/19 Umeclidinium [place] [Incruse Ellipta] 62.5 mcg IH 1XPACU 03/04/19 Family Disease History - Family Disease History Family Disease History: Other: Father ( (68) cirrhosis), Mother ( (84) cervical cancer), Brother ( (68) Cirrhosis), Sister ( alive (65) mitral valve dz) Other Family History: brother (65) liver disease Review of Systems - Review of Systems Constitutional: reports: Diaphoresis Eyes: reports: No Symptoms HENT: reports: No Symptoms Neck: reports: No Symptoms Cardiovascular: reports: Chest Pain, Palpitations, Shortness of Breath Respiratory: reports: SOB Gastrointestinal: reports: No Symptoms Genitourinary: reports: No Symptoms Breasts: reports: No Symptoms Reported Musculoskeletal: reports: No Symptoms Integumentary: reports: No Symptoms Neurological: reports: Dizziness Endocrine: reports: No Symptoms Hematology/Lymphatic: reports: No Symptoms Psychiatric: reports: No Symptoms Physical Examination Vital Signs: Vital Signs Temperature 97.9 F 03/04/19 14:42 Pulse Rate 61 03/04/19 14:42 Respiratory Rate 20 03/04/19 14:42 Blood Pressure 136/64 03/04/19 14:42 O2 Sat by Pulse Oximetry (%) 98 03/04/19 14:42 Constitutional: Yes: Well Nourished, No Distress, Calm Eyes: Yes: Conjunctiva Clear, EOM Intact, PERRL HENT: Yes: Atraumatic, Normocephalic Neck: Yes: Supple, Trachea Midline Cardiovascular: Yes: Regular Rate and Rhythm, Murmur (soft 2/6 SM), S1 Respiratory: Yes: Regular, CTA Bilaterally Gastrointestinal: Yes: Normal Bowel Sounds, Soft, Abdomen, Obese ...Rectal Exam: Yes: Deferred Breast(s): Yes: WNL Musculoskeletal: Yes: WNL Extremities: Yes: WNL Edema: No Peripheral Pulses WNL: Yes Peripheral Pulses: Left Radial: 2+, Right Radial: 2+, Left Doralis Pedis: 2+, Right Dorsalis Pedis: 2+ Integumentary: Yes: WNL Neurological: Yes: Alert, Oriented ...Motor Strength: WNL Psychiatric: Yes: WNL Labs: CBC, BMP 03/04/19 17:20 03/04/19 17:20 Imaging - Results Chest X-ray: Pending (CXR 03/04/19 (my read) cardiomegaly, clear lung elkins) Problem List - Problems (1) COPD (chronic obstructive pulmonary disease) Assessment/Plan: continue spiriva, singulair and PRN albuterol nebs Advair NF, switch to symbicort Incruse is NF, restart after discharge home PRN oxygen via [place] Code(s): J44.9 - CHRONIC OBSTRUCTIVE PULMONARY DISEASE, UNSPECIFIED (2) HLD (hyperlipidemia) Assessment/Plan: continue lipitor 40mg cardiac diet Code(s): E78.5 - HYPERLIPIDEMIA, UNSPECIFIED (3) Prophylactic measure Assessment/Plan: pt on coumadin 4mg qhs - INR 2.39 on 03/04 bleeding precautions daily INR bowel regimen with senna and colace OOB to chair ambulate Code(s): Z29.9 - ENCOUNTER FOR PROPHYLACTIC MEASURES, UNSPECIFIED (4) Chest pain Assessment/Plan: serial cardiac enzymes consider stress test on wednesday, if enzymes WNL EKG PRN chest pain SL nitro PRN chest pain Code(s): R07.9 - CHEST PAIN, UNSPECIFIED (5) ATRIAL FIBRILATION Assessment/Plan: cardizem 180mg daily continue coumadin - switch to heparin if pt with NSTEMI or in need of cardiac cath (6) Hypertension Assessment/Plan: Benicar is NF, switch to losartan 25mg while inpt tele monitor lasix 40mg daily Code(s): I10 - ESSENTIAL (PRIMARY) HYPERTENSION Qualifiers: Hypertension type: essential hypertension Qualified Code(s): I10 - Essential (primary) hypertension (7) Hypothyroidism Assessment/Plan: continue synthroid 50mcg daily TSH with AM labs Code(s): E03.9 - HYPOTHYROIDISM, UNSPECIFIED (8) BPH (benign prostatic hyperplasia) Assessment/Plan: flomax 0.4mg and dutasteride 0.5mg daily strict intake and output Code(s): N40.0 - BENIGN PROSTATIC HYPERPLASIA WITHOUT LOWER URINRY TRACT SYMP Assessment/Plan DISPO: home when work up complete Code: Full Visit type - Emergency Visit Emergency Visit: Yes ED Registration Date: 03/04/19 Care time: The patient presented to the Emergency Department on the above date and was hospitalized for further evaluation of their emergent condition. - New Patient This patient is new to me today: Yes Date on this admission: 03/04/19 - Critical Care Critical Care patient: No
[2019-03-04] MEDS: DUTASTERIDE 0.5 MG CAP (FP) PO SCH (20:00)
[2019-03-04] MEDS: ALBUTEROL SO4 0.083% IH SOL 2.5 MG/3 ML VIAL.NEB. NEB SCH (20:00)
[2019-03-04 21:33] LABS: INR 2.36 (0.83-1.09); PROTHROMBIN TIME (PATIENT) 28.1 SEC (9.7-13.0)
[2019-03-04 21:36] LABS: ACTIVATED PTT 44.9 SECONDS (25.2-36.5)
[2019-03-04] MEDS ORDERED: DOCUSATE SODIUM 100 MG CAPSULE (FP) PO ONE (21:50)
[2019-03-04] MEDS ORDERED: ATORVASTATIN CA 10 MG TABLET (FP) ONE (21:50)
[2019-03-04] MEDS ORDERED: MONTELUKAST NA 10 MG TABLET ONE (21:51)
[2019-03-04] MEDS ORDERED: FLUTICASONE/SALMETEROL 100 MCG/50 MCG DISKUS IH SCH (22:00)
[2019-03-04] MEDS ORDERED: PATIENT'S OWN MEDICATION (NON-FORMULARY) (Olmesartan Medoxomil 20 MG) PO SCH (22:00)
[2019-03-04] MEDS: DOCUSATE SODIUM 100 MG CAPSULE (FP) PO SCH (22:03)
[2019-03-04] MEDS: MONTELUKAST NA 10 MG TABLET PO SCH (22:03)
[2019-03-04] MEDS: ATORVASTATIN CA 40 MG TABLET (FP) PO SCH (22:03)
[2019-03-04] MEDS: SENNOSIDES 8.6MG TABLET (FP) PO SCH (22:21)
[2019-03-04] MEDS: BUDESONIDE/FORMETEROL FUMARATE 80/4.5 mcg INHALER IH SCH (22:21)
[2019-03-04] MEDS ORDERED: WARFARIN NA 1 MG TABLET (FP) ONE (22:54)
[2019-03-04] MEDS: WARFARIN NA 2 MG TABLET (UD) PO SCH (22:58)
[2019-03-05] MEDS ORDERED: LEVOTHYROXINE NA 25 MCG TABLET (FP) ONE (06:36)
[2019-03-05] MEDS: LEVOTHYROXINE NA 50 MCG TABLET (FP) PO SCH (06:38)
[2019-03-05 07:47] LABS: HEMATOCRIT 39.6 % (35.4-49); HEMOGLOBIN 13.3 GM/dL (11.7-16.9); MCH 29.6 pg (25.7-33.7); MCHC 33.7 g/dl (32.0-35.9); MEAN CELL VOLUME 87.8 fl (80-96); MEAN PLT VOLUME 8.4 fl (7.5-11.1); PLATELET COUNT 179 K/MM3 (134-434); RBC 4.51 M/mm3 (4.00-5.60); RDW 15.4 % (11.9-15.9)
[2019-03-05 08:17] LABS: INR 2.12 (0.83-1.09); PROTHROMBIN TIME (PATIENT) 25.2 SEC (9.7-13.0)
[2019-03-05 08:54] LABS: ALBUMIN 3.4 g/dl (3.4-5.0); ALK PHOS 69 U/L (45-117); ANION GAP 8 MMOL/L (8-16); BILIRUBIN,TOTAL 0.3 mg/dL (0.2-1); BLOOD UREA NITROGEN 16 mg/dL (7-18); CALCIUM 8.3 mg/dL (8.5-10.1); CHLORIDE 108 mmol/L (98-107); CHOLESTEROL 123 mg/dL (50-200); CO2 25 mmol/L (21-32); CREATININE 1.2 mg/dL (0.55-1.3); GLUCOSE,RANDOM 87 mg/dL (74-106); HDL CHOLESTEROL 60 mg/dL (40-60); MAGNESIUM 1.9 mg/dL (1.8-2.4); N-TERMINAL BNP 399.1 pg/ml (5-125); PHOSPHOROUS 4.6 mg/dL (2.5-4.9); POTASSIUM 4.2 mmol/L (3.5-5.1); SGOT/AST 21 U/L (15-37); SGPT/ALT 19 U/L (13-61); SODIUM 142 mmol/L (136-145); TOT PROT 6.4 g/dl (6.4-8.2); TRIGLYCERIDES 83 mg/dL (0-150)
[2019-03-05] MEDS: DUTASTERIDE 0.5 MG CAP (FP) PO SCH (09:02)
[2019-03-05] MEDS: TAMSULOSIN HCL 0.4 MG CAP PO SCH (09:02)
[2019-03-05] MEDS: LOSARTAN POTASSIUM 25 MG TABLET PO SCH (09:02)
[2019-03-05] MEDS: RANITIDINE HCL 150 MG TABLET (FP) PO SCH (09:02)
[2019-03-05] MEDS: DOCUSATE SODIUM 100 MG CAPSULE (FP) PO SCH ×2 (09:02→21:28)
[2019-03-05] MEDS: BUDESONIDE/FORMETEROL FUMARATE 80/4.5 mcg INHALER IH SCH ×2 (09:02→22:31)
[2019-03-05] MEDS: FUROSEMIDE 20 MG TABLET (FP) PO SCH (09:02)
[2019-03-05] MEDS: ALBUTEROL SO4 0.083% IH SOL 2.5 MG/3 ML VIAL.NEB. NEB SCH ×4 (09:02→20:52)
[2019-03-05] MEDS ORDERED: TAMSULOSIN HCL 0.4 MG CAP ONE (09:51)
[2019-03-05] MEDS ORDERED: ALBUTEROL SO4 0.083% IH SOL 2.5 MG/3 ML VIAL.NEB. NEB ONE ×2 (09:51→15:43)
[2019-03-05] MEDS ORDERED: TIOTROPIUM BROMIDE 2.5 MCG (SPIRIVA) RESPIMAT INHALER IH SCH (10:00)
--- NOTE | 2019-03-05 10:19 | CON.CARD ---
Consult Consult Specialty:: Cardiology Referred by:: Dr. Pulliam Reason for Consultation:: Chest pain - History of Present Illness Chief Complaint: Chest pain History of Present Illness: 73-year-old man with a PMHx of atrial fibrillation, tachy-terence syndrome, s/p permanent [id number] with [facility], on coumadin, severe mitral regurgitation, mitraclip considered, chronic diastolic CHF, hypertension , hyperlipidemia, obstructive sleep apnea, history of hemoptysis and COPD presented to ED 03/04/2019 with chest pain. The patient has been followed with Dr. Smith for his cardiac care. He was seen by Dr. Amador 02/16/2019 for mitraclip, a good candidate for mitraclip based on anatomy. Cardiac cath recommended. Mr. Wolff had first episode of chest pain in the afternoon of 03/03/19, while driving, left sided chest pain (2/10 dull ache) with SOB, dizziness, palpitations, and headache. His symptoms last about 60 minutes. He denies He had second episode of similar symptoms on 03/04/19 after he ate lunch. In ED: Vitals were: BP 136/64, HR 61, RR 20, T 97.9, O2 sat 98% CXR: clear lungs EKG 03/04/19: atrial fibrillation and V-paced at 60 bpm. CArdiac enzymes negative INR 2.39, pt dosed coumadin for afib KEYA 01/26/19: Eccentric mitral regurgitation, probably severe. Regurgitation jet is posteriorly directed. Zachariah Classification: Type IIIb -restricted [ posterior] leaflet motion during systole. Probable reversal of right pulmonary vein systolic flow, consistent with severe MR. Normal LV and RV function. Severe LA and RA dilatation. - History Source History Provided By: Patient, Medical Record Limitations to Obtaining History: No Limitations - Past Medical History Cardio/Vascular: Yes: AFIB, HTN, Hyperlipdemia, Mitral Insufficiency Pulmonary: Yes: COPD, Sleep Apnea Endocrine: Yes: Hypothyroidism Additional Medical History: OBESITY - Past Surgical History Past Surgical History: Yes: Permanent Pacemaker - Alcohol/Substance Use Hx Alcohol Use: Yes (prior use 15-18beers on wed and wednesday x 25yrs, he currently does not drink) History of Substance Use: reports: None - Smoking History Smoking history: Former smoker (1PPD x 35years, d/sal 1998) Have you smoked in the past 12 months: No Aproximately how many cigarettes per day: 0 If you are a former smoker, when did you quit?: 1998 - Social History Usual Living Arrangement: With Spouse ADL: Independent 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 History of Recent Travel: No Home Medications - Allergies Allergies/Adverse Reactions: Allergies Allergy/AdvReac Type Severity Reaction Status Date / Time metoprolol AdvReac Intermediate Verified 03/04/19 18:18 - Home Medications Home Medications: Ambulatory Orders Cholecalciferol (Vitamin D3) [Vitamin D3] 2,000 unit PO DAILY 03/06/15 Dutasteride/Tamsulosin HCl [Jazmin 0.5-0.4 mg Capsule] 1 each PO PRN 03/06/15 Furosemide [Lasix -] 20 mg PO DAILY 03/06/15 Montelukast Na [Singulair -] 10 mg PO HS 03/06/15 Olmesartan Medoxomil [Benicar -] 20 mg PO BID 03/06/15 Tiotropium [place] [Spiriva] 1 inh PO DAILY PRN 03/06/15 Warfarin Sodium [Coumadin] 4 mg PO HS 10/02/16 Albuterol 0.083% Nebulizer Wendy [Ventolin 0.083% Nebulizer Soln -] 1 neb NEB Q6H 01/05/17 Diltiazem Cd [Cardizem Cd -] 180 mg PO DAILY 01/05/17 Levothyroxine [Synthroid -] 50 mcg PO DAILY 01/05/17 Salmeterol/Fluticasone [Advair 250Mcg/50Mcg] 1 inh PO BID 01/05/17 Atorvastatin Calcium 40 mg PO DAILY 03/04/19 Umeclidinium [place] [Incruse Ellipta] 62.5 mcg IH 1XPACU 03/04/19 Family Disease History - Family Disease History Family Disease History: Other: Father ( (68) cirrhosis), Mother ( (84) cervical cancer), Brother ( (68) Cirrhosis), Sister ( alive (65) mitral valve dz) Other Family History: brother (65) liver disease Review of Systems - Review of Systems Constitutional: reports: No Symptoms Eyes: reports: No Symptoms HENT: reports: No Symptoms Neck: reports: Pain on Movement, Stiffness Cardiovascular: reports: Chest Pain, Shortness of Breath Respiratory: reports: SOB on Exertion Gastrointestinal: reports: No Symptoms Genitourinary: reports: No Symptoms Breasts: reports: No Symptoms Reported Musculoskeletal: reports: No Symptoms Integumentary: reports: No Symptoms Neurological: reports: No Symptoms Endocrine: reports: No Symptoms Hematology/Lymphatic: reports: No Symptoms Vital Signs: Vital Signs Temperature 98.1 F 03/05/19 02:37 Pulse Rate 59 L 03/05/19 06:45 Respiratory Rate 18 03/05/19 06:45 Blood Pressure 121/72 03/05/19 06:45 O2 Sat by Pulse Oximetry (%) 97 03/05/19 06:45 WD, WN, elderly , AAX3, comfortable, NAD. Head: Normocephalic, Atraumatic, Eyes: PERRLA, EOMI, sclerae aniteric and conjunctivae clear. ENT: Oropharynx, nares clear, mucosa moist without pallor or cyanosis Neck: Supple, no JVD, no bruits. No thyromegaly or lymphadenopathy, Heart: Normal S1, S2: regular rate and rhythm, II/ HSM, no gallop or rub. Lungs: Symmetrical good air entry and clear to auscultation and percussion. Abdomen: Bowel sound positive. Soft, no tender, no masses, no hepatosplenomegaly. Extremities: No edema, clubbing or cyanosis; peripheral pulses 2+, equal bilaterally. Skin: Normal turgor. warm and dry, no lesion. - Other Data Labs, Other Data: CBC, BMP 03/05/19 06:52 03/05/19 06:52 INR, PTT INR 2.12 (0.83-1.09) H 03/05/19 06:52 Troponin, BNP 03/04/19 03/05/19 03/05/19 17:20 06:52 06:52 Troponin I < 0.02 < 0.02 < 0.02 B-Natriuretic Peptide 479.0 H 399.1 H Troponin, BNP 03/04/19 03/05/19 03/05/19 17:20 06:52 06:52 Troponin I < 0.02 < 0.02 < 0.02 B-Natriuretic Peptide 479.0 H 399.1 H Imaging - Results EKG: Image Reviewed (EKG 03/04/19: atrial fibrillation and V-paced at 60 bpm.) Assessment/Plan 73-year-old man with a PMHx of atrial fibrillation, tachy-terence syndrome, s/p permanent [id number] with [facility] at [facility], on coumadin, severe mitral regurgitation, mitraclip considered, chronic diastolic CHF, hypertension , hyperlipidemia, obstructive sleep apnea, history of hemoptysis and COPD presented to ED 03/04/2019 with chest pain. The patient has been followed with Dr. Smith for his cardiac care. He was seen by Dr. Amador 02/16/2019 for mitraclip, a good candidate for mitraclip based on anatomy. Cardiac cath recommended. Mr. Wolff had first episode of chest pain in the afternoon of 03/03/19, while driving, left sided chest pain (2/10 dull ache) with SOB, dizziness, palpitations, and headache. His symptoms last about 60 minutes. He denies He had second episode of similar symptoms on 03/04/19 after he ate lunch. In ED: Vitals were: BP 136/64, HR 61, RR 20, T 97.9, O2 sat 98% CXR: clear lungs EKG 03/04/19: atrial fibrillation and V-paced at 60 bpm. Cardiac enzymes negative INR 2.39, pt dosed coumadin for afib KEYA 01/26/19: Eccentric mitral regurgitation, probably severe. Regurgitation jet is posteriorly directed. Zachariah Classification: Type IIIb -restricted [ posterior] leaflet motion during systole. Probable reversal of right pulmonary vein systolic flow, consistent with severe MR. Normal LV and RV function. Severe LA and RA dilatation. 1) Chest pain: atypical presentation, no evidence of CO. ECG is uninterpretable , but likely not acute coronary syndrome. However, he did not have ischemic work up in the past. But cardiac cath planned before mitral valve intervention. The patient should be seen by Dr. Smith sooner for elective cardiac cath. No non-invasive cardiac test recommended. The patient can be discharged from ED for close out-patient cardiac follow up. 2) Diastolic CHF and severe mitral regurgitation. Stable. No physical signs of fluid overload. Continue home dose furosemide. 3) Atrial fibrillation: Remains in afib with ventricular paced rhythm. Continue Warfarin with target INR 2-3. Continue dilt for VR control. Please call us for reconsult as needed.
--- NOTE | 2019-03-05 10:59 | PN ---
Progress Note (short form) - Note Progress Note: events noted admitted for chest pain , associated with SOB Pt examined in the ER He currently feels well Denies chest pain and SOB , palpitations Vital Signs - 24 hr 03/05/19 03/05/19 03/05/19 02:37 06:45 08:45 Temperature 98.1 F 98 F Pulse Rate Pulse Rate [ 54 L 59 L 60 Right Radial] Respiratory 18 20 Rate Blood Pressure Blood Pressure 104/40 L 121/72 136/77 [Right Arm] O2 Sat by Pulse 98 97 97 Oximetry (%) 03/05/19 03/05/19 16:39 17:47 Temperature 98 F 98.1 F Pulse Rate 80 Pulse Rate [ 60 Right Radial] Respiratory 18 18 Rate Blood Pressure 128/69 Blood Pressure 115/69 [Right Arm] O2 Sat by Pulse 97 Oximetry (%) Current Medications Generic Name Dose Route Start Last Admin Trade Name Freq PRN Reason Stop Dose Admin Albuterol Sulfate 1 amp 03/04/19 19:00 03/05/19 16:11 Ventolin 0.083% Nebulizer Soln - NEB Not Given RQID PHI Atorvastatin Calcium 40 mg 03/04/19 22:00 03/04/19 22:03 Lipitor - PO 40 mg HS PHI Administration Budesonide/Formoterol Fumarate 2 puff 03/04/19 22:00 03/05/19 09:02 Symbicort 80/4.5mcg - IH 2 puff BID PHI Administration Diltiazem HCl 180 mg 03/05/19 10:00 03/05/19 09:02 Cardizem Cd - PO 180 mg DAILY PHI Administration Docusate Sodium 100 mg 03/04/19 22:00 03/05/19 09:02 Colace - PO 100 mg BID PHI Administration Dutasteride 0.5 mg 03/04/19 19:00 03/05/19 09:02 Avodart - PO 0.5 mg DAILY PHI Administration Furosemide 20 mg 03/05/19 10:00 03/05/19 09:02 Lasix - PO 20 mg DAILY PHI Administration Levothyroxine Sodium 50 mcg 03/05/19 07:00 03/05/19 06:38 Synthroid - PO Not Given DAILY@0700 PHI Losartan Potassium 25 mg 03/05/19 10:00 03/05/19 09:02 Cozaar - PO 25 mg DAILY PHI Administration Montelukast Sodium 10 mg 03/04/19 22:00 03/04/19 22:03 Singulair - PO 10 mg HS PHI Administration Nitroglycerin 0.4 mg 03/04/19 18:37 Nitrostat - SL Q5M PRN FOR CHEST PAIN Ranitidine HCl 150 mg 03/05/19 10:00 03/05/19 09:02 Zantac - PO 150 mg DAILY PHI Administration Senna 2 tab 03/04/19 22:00 03/04/19 22:21 Senna - PO 2 tab HS PHI Administration Tamsulosin HCl 0.4 mg 03/05/19 08:30 03/05/19 09:02 Flomax - PO 0.4 mg DAILY@0830 PHI Administration Tiotropium [place] 2 puff 03/05/19 10:00 03/05/19 12:13 Spiriva Respimat IH 2 puff DAILY PHI Administration Warfarin Sodium 4 mg 03/04/19 22:15 03/05/19 18:52 Coumadin - PO 4 mg DAILY@1800 PHI Administration Laboratory Results - last 24 hr 03/04/19 03/05/19 03/05/19 20:45 06:52 06:52 WBC 5.0 RBC 4.51 Hgb 13.3 Hct 39.6 MCV 87.8 MCH 29.6 MCHC 33.7 RDW 15.4 Plt Count 179 MPV 8.4 PT with INR 28.10 H 25.20 H INR 2.36 H 2.12 H PTT (Actin FS) 44.9 H 40.0 H Sodium Potassium Chloride Carbon Dioxide Anion Gap BUN Creatinine Creat Clearance w eGFR Random Glucose Hemoglobin A1c % Calcium Phosphorus Magnesium Total Bilirubin AST ALT Alkaline Phosphatase Creatine Kinase Troponin I B-Natriuretic Peptide Total Protein Albumin Triglycerides Cholesterol Total LDL Cholesterol HDL Cholesterol TSH 03/05/19 03/05/19 03/05/19 06:52 06:52 06:52 WBC RBC Hgb Hct MCV MCH MCHC RDW Plt Count MPV PT with INR INR PTT (Actin FS) Sodium 142 Potassium 4.2 Chloride 108 H Carbon Dioxide 25 Anion Gap 8 BUN 16 Creatinine 1.2 Creat Clearance w eGFR 59.18 Random Glucose 87 Hemoglobin A1c % 6.0 Calcium 8.3 L Phosphorus 4.6 Magnesium 1.9 Total Bilirubin 0.3 AST 21 ALT 19 Alkaline Phosphatase 69 Creatine Kinase 105 99 Troponin I < 0.02 < 0.02 B-Natriuretic Peptide 399.1 H Total Protein 6.4 Albumin 3.4 Triglycerides 83 Cholesterol 123 Total LDL Cholesterol 52 HDL Cholesterol 60 TSH 5.37 H D No JVD S1 S2 Irregular Lungs crackles+ at bases Abd- soft, obese, NT no edema PLAN cardiac enzymes are negative so far Cardiology eval admit to Telemetry for stress test tomorrow increase lasix PO monitor INR -- coumadin per INR Problem List - Problems (1) COPD (chronic obstructive pulmonary disease) Code(s): J44.9 - CHRONIC OBSTRUCTIVE PULMONARY DISEASE, UNSPECIFIED (2) Chest pain Code(s): R07.9 - CHEST PAIN, UNSPECIFIED (3) HLD (hyperlipidemia) Code(s): E78.5 - HYPERLIPIDEMIA, UNSPECIFIED
[2019-03-05] MEDS: TIOTROPIUM BROMIDE 2.5 MCG (SPIRIVA) RESPIMAT INHALER IH SCH (12:13)
[2019-03-05 17:49] VITALS: BMI 39.2
[2019-03-05] MEDS: WARFARIN NA 2 MG TABLET (UD) PO SCH (18:52)
[2019-03-05] MEDS: MONTELUKAST NA 10 MG TABLET PO SCH (21:28)
[2019-03-05] MEDS: ATORVASTATIN CA 40 MG TABLET (FP) PO SCH (21:28)
[2019-03-05] MEDS: SENNOSIDES 8.6MG TABLET (FP) PO SCH (21:28)
[2019-03-06 03:14] VITALS: PULSE 60
[2019-03-06] MEDS: LEVOTHYROXINE NA 50 MCG TABLET (FP) PO SCH (06:20)
[2019-03-06] MEDS: ALBUTEROL SO4 0.083% IH SOL 2.5 MG/3 ML VIAL.NEB. NEB SCH ×2 (07:22→11:16)
[2019-03-06] MEDS: TAMSULOSIN HCL 0.4 MG CAP PO SCH (07:59)
[2019-03-06 08:46] VITALS: BP 128/82; TEMP 97.8
[2019-03-06] MEDS: DOCUSATE SODIUM 100 MG CAPSULE (FP) PO SCH (09:35)
[2019-03-06] MEDS: DUTASTERIDE 0.5 MG CAP (FP) PO SCH (09:35)
[2019-03-06] MEDS: FUROSEMIDE 20 MG TABLET (FP) PO SCH (09:35)
[2019-03-06] MEDS: RANITIDINE HCL 150 MG TABLET (FP) PO SCH (09:35)
[2019-03-06] MEDS: LOSARTAN POTASSIUM 25 MG TABLET PO SCH (09:35)
--- NOTE | 2019-03-06 11:00 | EKG ---
Test Reason : Blood Pressure : / mmHG Vent. Rate : 060 BPM Atrial Rate : 300 BPM P-R Int : 000 ms QRS Dur : 168 ms QT Int : 450 ms P-R-T Axes : 000 -78 078 degrees QTc Int : 450 ms Ventricular-paced rhythm UNDERLYING ATRIAL FIBRILLATION ABNORMAL ECG WHEN COMPARED WITH ECG OF 27-SEP-2017 17:40, NO SIGNIFICANT CHANGE WAS FOUND Confirmed by MORIS PERALES MD ([id number]) on 03/06/2019 11:00:17 AM Referred By: Confirmed By:MORIS PERALES MD
--- NOTE | 2019-03-06 12:01 | DS ---
Physical Examination Vital Signs: Vital Signs Temperature 97.8 F 03/06/19 08:44 Pulse Rate 60 03/06/19 08:44 Respiratory Rate 20 03/06/19 08:44 Blood Pressure 128/82 03/06/19 08:44 O2 Sat by Pulse Oximetry (%) 98 03/05/19 21:49 Findings/Remarks: pt seen/ examined in tele chart reviewed awake/ comfortable denies cp cardiology consult noted/ appreciated mi ruled out Constitutional: Yes: No Distress, Calm Eyes: Yes: Conjunctiva Clear HENT: Yes: WNL Neck: Yes: Supple Cardiovascular: Yes: Regular Rate and Rhythm Respiratory: Yes: CTA Bilaterally Gastrointestinal: Yes: Soft Edema: No Neurological: Yes: Alert Psychiatric: Yes: Alert Labs: CBC, BMP 03/05/19 06:52 03/05/19 06:52 Discharge Summary Reason For Visit: CHEST PAIN Current Active Problems BPH (benign prostatic hyperplasia) (Acute) COPD (chronic obstructive pulmonary disease) (Acute) Chest pain (Acute) HLD (hyperlipidemia) (Acute) Prophylactic measure (Acute) Hospital Course: admitted for cp mi ruled out cardiology followed recommended cardiac cath as out pt Discussed with pt-- going to follow with Dr. Smith in office Advised to follow shaniqua med reconcilled will d/c home today will f/u closely in office also f/u in office next week Pt in agreement Discussed with nursing staff also Condition: Stable - Instructions Referrals: Nacho Smith MD [Staff Physician] - Angeles Pulliam MD [Primary Care Provider] - Disposition: HOME - Home Medications Comprehensive Discharge Medication List: Ambulatory Orders Cholecalciferol (Vitamin D3) [Vitamin D3] 2,000 unit PO DAILY 03/06/15 Dutasteride/Tamsulosin HCl [Jazmin 0.5-0.4 mg Capsule] 1 each PO PRN 03/06/15 Furosemide [Lasix -] 20 mg PO DAILY 03/06/15 Montelukast Na [Singulair -] 10 mg PO HS 03/06/15 Olmesartan Medoxomil [Benicar -] 20 mg PO BID 03/06/15 Tiotropium [place] [Spiriva] 1 inh PO DAILY PRN 03/06/15 Warfarin Sodium [Coumadin] 4 mg PO HS 10/02/16 Albuterol 0.083% Nebulizer Wendy [Ventolin 0.083% Nebulizer Soln -] 1 neb NEB Q6H 01/05/17 Diltiazem Cd [Cardizem Cd -] 180 mg PO DAILY 01/05/17 Levothyroxine [Synthroid -] 50 mcg PO DAILY 01/05/17 Salmeterol/Fluticasone [Advair 250Mcg/50Mcg -] 1 inh PO BID 01/05/17 Atorvastatin Calcium 40 mg PO DAILY 03/04/19 Umeclidinium [place] [Incruse Ellipta] 62.5 mcg IH 1XPACU 03/04/19 Docusate Sodium [Colace -] 100 mg PO BID capsule 03/06/19 Nitroglycerin Sublingual [Nitrostat -] 0.4 mg SL Q5M PRN tab 03/06/19 Sennosides [Senna -] 2 tab PO HS tablet 03/06/19
[2019-03-06] MEDS: TIOTROPIUM BROMIDE 2.5 MCG (SPIRIVA) RESPIMAT INHALER IH SCH (12:03)
[2019-03-06] MEDS: BUDESONIDE/FORMETEROL FUMARATE 80/4.5 mcg INHALER IH SCH (12:03)
--- NOTE | 2019-03-06 14:50 | ECHO ---
Name: JERICA MATAAREZXOCHITLLO Exam:Adult Echocardiogram Study Date: 03/06/2019 08:11 AM Age: 73 yrs Reason For Study: CHEST PAIN R/O WALL MOTION ABNORMALITIY Height: 65 in Weight: 239 lb BSA: 2.1 m2 MMode/2D Measurements & Calculations IVSd: 1.2 cm Ao root diam: 2.6 cm LVIDd: 6.0 cm LA dimension: 4.6 cm LVIDs: 4.2 cm LVPWd: 1.2 cm EDV(Teich): 178.0 ml LVOT diam: 2.0 cm ESV(Teich): 77.1 ml Doppler Measurements & Calculations MV E max prabhakar: 81.9 cm/sec Ao V2 max: 148.6 cm/sec MV A max prabhakar: 21.2 cm/sec Ao max P.8 mmHg MV E/A: 3.9 Ao V2 mean: 100.5 cm/sec MV dec time: 0.19 sec Ao mean P.6 mmHg Ao V2 VTI: 26.9 cm MARIA TERESA(I,D): 1.6 cm2 MARIA TERESA(V,D): 1.6 cm2 LV V1 max P.3 mmHg MR max prabhakar: 516.3 cm/sec LV V1 mean P.1 mmHg MR max P.7 mmHg LV V1 max: 75.8 cm/sec LV V1 mean: 49.7 cm/sec LV V1 VTI: 13.6 cm SV(LVOT): 43.9 ml TR max prabhakar: 248.4 cm/sec TR max P.9 mmHg Med Peak E' Prabhakar: 8.8 cm/sec Med E/e': 9.3 Lat Peak E' Prabhakar: 12.8 cm/sec Lat E/e': 6.4 Procedure A complete two-dimensional transthoracic echocardiogram was performed (2D, M-mode, Doppler and color flow Doppler). Left Ventricle The left ventricle is normal in size. Left ventricular systolic function is normal. Ejection Fraction = 55- 60%. No regional wall motion abnormalities noted. Right Ventricle The right ventricle is normal size. There is a pacemaker lead in the right ventricle. The right ventr icular systolic function is normal. RV systolic TDI is 12 cm/s. Atria The left atrium is mildly dilated. Right atrial size is normal. Mitral Valve There is mild mitral annular calcification. There is mild to moderate mitral regurgitation. Tricuspid Valve The tricuspid valve is normal in structure and function. There is mild tricuspid regurgitation. Pulmo nary artery systolic pressure is at least 34 mmHg if RA pressure is assumed 3 mmHg. Aortic Valve There is mild aortic sclerosis.;. No aortic regurgitation is present. Pulmonic Valve The pulmonic valve is not well visualized. Great Vessels The aortic root is normal size. Pericardium/Pleura There is no pericardial effusion. Interpretation Summary The left ventricle is normal in size. Left ventricular systolic function is normal. No regional wall motion abnormalities noted. Ejection Fraction = 55-60%. The right ventricular systolic function is normal. There is a pacemaker lead in the right ventricle. The left atrium is mildly dilated. Right atrial size is normal. There is mild mitral annular calcification. There is mild to moderate mitral regurgitation. There is mild tricuspid regurgitation. Pulmonary artery systolic pressure is at least 34 mmHg if RA pressure is assumed 3 mmHg There is mild aortic sclerosis. There is no pericardial effusion. Previous study is not available for comparison Tristan Borrero MD 03/06/2019 02:50 PM
== END 2019-03-06 13:36 | disposition home or self-care (01) ==
LOC: JER 14:39 → JERBED 18:10 → J4W 03-05 18:23
PROVIDERS: ADMIT Internal Medicine; ATTEND Internal Medicine
PROC: 3E0F7GC Introduction of Other Therapeutic Substance into Respiratory Tract, Via Natural or Artificial Opening (ICD-10-PCS; principal; 2019-03-04)
DX: I11.0 Hypertensive heart disease with heart failure (principal); E78.5 Hyperlipidemia, unspecified; I35.1 Nonrheumatic aortic (valve) insufficiency; I48.91 Unspecified atrial fibrillation; I34.0 Nonrheumatic mitral (valve) insufficiency; I50.30 Unspecified diastolic (congestive) heart failure; J44.9 Chronic obstructive pulmonary disease, unspecified; E03.9 Hypothyroidism, unspecified; N40.0 Benign prostatic hyperplasia without lower urinary tract symptoms; Z95.0 Presence of cardiac pacemaker; Z79.01 Long term (current) use of anticoagulants; Z29.9 Encounter for prophylactic measures, unspecified
CPT/HCPCS: 36415; 71046-TC-FY; 80053; 80061; 82550; 82553; 83036; 83721; 83735; 83880; 84100; 84443; 84484; 85025; 85027; 85610; 85730; 93005; 93010; 93306-TC; 94640; 99285-25; G0378

== ENCOUNTER 2019-06-12 00:27 | Inpatient (IN) | payer MEDICARE, OTHER ==
--- NOTE | 2019-06-12 01:00 | PDOC ---
History of Present Illness - General Chief Complaint: Cold Symptoms Stated Complaint: DIFFICULTY BREATHING - History of Present Illness Initial Comments: 06/12/19 00:54 74m with pmh of COPD (not on home ), hypothyroidism and leaky valve + bypass surgery on Wednesday, discharged yesterday from [facility], presents to the ED for mucous production requiring strong coughing efforts to clear out, every 30 min. As per patient, once the cough is able to clear the sputum, he feels at baseline but the same issue happens 30min later. He denies being short of breath or uncomfortable at time of presentation. Denies fever, chills, chest pain of any kind. Past History - Past Medical History Allergies/Adverse Reactions: Allergies Allergy/AdvReac Type Severity Reaction Status Date / Time metoprolol AdvReac Intermediate Verified 06/12/19 00:33 Home Medications: Ambulatory Orders Cholecalciferol (Vitamin D3) [Vitamin D3] 2,000 unit PO DAILY 03/06/15 Dutasteride/Tamsulosin HCl [Jazmin 0.5-0.4 mg Capsule] 1 each PO PRN 03/06/15 Furosemide [Lasix -] 20 mg PO DAILY 03/06/15 Montelukast Na [Singulair -] 10 mg PO HS 03/06/15 Olmesartan Medoxomil [Benicar -] 20 mg PO BID 03/06/15 Tiotropium [place] [Spiriva] 1 inh PO DAILY PRN 03/06/15 Warfarin Sodium [Coumadin] 4 mg PO HS 10/02/16 Albuterol 0.083% Nebulizer Wendy [Ventolin 0.083% Nebulizer Soln -] 1 neb NEB Q6H 01/05/17 Diltiazem Cd [Cardizem Cd -] 180 mg PO DAILY 01/05/17 Levothyroxine [Synthroid -] 50 mcg PO DAILY 01/05/17 Salmeterol/Fluticasone [Advair 250Mcg/50Mcg -] 1 inh PO BID 01/05/17 Atorvastatin Calcium 40 mg PO DAILY 03/04/19 Umeclidinium [place] [Incruse Ellipta] 62.5 mcg IH [id number] 03/04/19 Docusate Sodium [Colace -] 100 mg PO BID capsule 03/06/19 Nitroglycerin Sublingual [Nitrostat -] 0.4 mg SL Q5M PRN tab 03/06/19 Sennosides [Senna -] 2 tab PO HS tablet 03/06/19 Asthma: Yes Cancer: No Cardiac Disorders: Yes (AFIB, PM.) CVA: No COPD: Yes Dementia: No Diabetes: No GI Disorders: No Disorders: No HTN: Yes Hypercholesterolemia: Yes Liver Disease: No Seizures: No Thyroid Disease: Yes (hypothyroid) - Surgical History Abdominal Surgery: No Appendectomy: No Cardiac Surgery: Yes (PACEMAKER., cardiac bypass 05/06) Cholecystectomy: No Lung Surgery: No Neurologic Surgery: No Orthopedic Surgery: Yes (hand sx) - Family Disease History Family Disease History: Other: Mother (non contibutory) - Immunization History Immunization Up to Date: Yes - Suicide/Smoking/Psychosocial Hx Smoking Status: No Smoking History: Former smoker Years of Tobacco Use: 40 Have you smoked in the past 12 months: No Number of Cigarettes Smoked Daily: 0 If you are a former smoker, when did you quit?: 1998 Information on smoking cessation initiated: No Hx Alcohol Use: Yes (prior use 15-18beers on wed and wednesday x 25yrs, he currently does not drink) Drug/Substance Use Hx: No Substance Use Type: None Hx Substance Use Treatment: No Respiratory Specific PMHX - Complaint Specific PMHX Angina: No Bronchitis: No Pneumonia: Yes (recent in July) Pulmonary Embolus: No TB (Tuberculosis): No Review of Systems - Review of Systems Able to Perform ROS?: Yes Is the patient limited Tajik proficient: No Constitutional: No: Symptoms Reported HEENTM: No: Symptoms Reported Respiratory: Yes: See HPI Cardiac (ROS): No: Symptoms Reported ABD/GI: No: Symptoms Reported : No: Symptoms Reported All Other Systems: Reviewed and Negative *Physical Exam - Vital Signs Last Vital Signs Temp Pulse Resp BP Pulse Ox 99.2 F 84 16 124/74 95 06/12/19 00:33 06/12/19 00:33 06/12/19 00:33 06/12/19 00:33 06/12/19 00:33 - Physical Exam General Appearance: Yes: Appropriately Dressed, Obese. No: Apparent Distress HEENT: positive: EOMI, CARRIE, Normal ENT Inspection Respiratory/Chest: positive: Decreased Breath Sounds. negative: Chest Tender, Respiratory Distress Cardiovascular: positive: Regular Rhythm, Regular Rate, S1, S2 Gastrointestinal/Abdominal: positive: Normal Bowel Sounds, Soft, Protuberent, Other (multiple fresh looking surgical scars over chest and abdomen. ). negative: Tender Musculoskeletal: positive: Normal Inspection. negative: CVA Tenderness Extremity: positive: Normal Capillary Refill, Normal Inspection, Normal Range of Motion Integumentary: positive: Normal Color, Dry, Warm Neurologic: positive: Fully Oriented, Alert, Normal Mood/Affect, Normal Response , Motor Strength 03/12 ED Treatment Course - LABORATORY CBC & Chemistry Diagram: 06/12/19 01:36 06/12/19 01:36 - RADIOLOGY Radiology Studies Ordered: Category Date Time Status CHEST X-RAY PORTABLE* [RAD] Stat Radiology 06/12/19 00:49 Ordered Medical Decision Making - Medical Decision Making 06/12/19 02:07 74m with recent open heart suregry presenting with occasional sensation of chocking on his own plhegm, unable to cough it out. Will r/o pneumonia. pulmonary edema/effusion, acute CHF, AR. High risk for those and for hemipericardium, currently on plavix, recent open heart suregry. Patient saturating in the low 90's as expending from chronic COPD Labs pending, CT chest pending. Patient had episode of choking in the Cat Scan room were he was unable to cough , appeared in severe distress momentarily. Depending on Ct read, may have to transfer patient back to [facility] for further management. Patient signed out to Dr. Wasserman/Kya. 06/12/19 02:10 06/12/19 02:12 *DC/Admit/Observation/Transfer Diagnosis at time of Disposition: History of open heart surgery, Respiratory distress, COPD (chronic obstructive pulmonary disease) - Referrals - Patient Instructions - Post Discharge Activity
--- NOTE | 2019-06-12 01:50 | PDOC ---
Documentation entered by Connie Renner SCRIBE, acting as scribe for Daniela Espino MD. Daniela Espino MD: This documentation has been prepared by the scribe, Connie Renner SCRIBE, under my direction and personally reviewed by me in its entirety. I confirm that the documentation accurately reflects all work, treatment, procedures, and medical decision making performed by me. Attending Attestation - Resident Resident Name: Jack Hess - ED Attending Attestation I have performed the following: I have examined & evaluated the patient, The case was reviewed & discussed with the resident, I agree w/resident's findings & plan, Exceptions are as noted - HPI HPI: 06/12/19 01:11 The patient is a 74-year-old male with a past medical history significant for COPD (not on home O2, daily nebulizer use) hypothyroidism, s/p Leaky valve repair and CABG (@[facility], 06/05, D/sal 06/10) presents to the emergency department with congestion. The patient reports every 30 minutes he has to cough to clear the congestion, with relief however, he has to do this every 30 minutes. Denies fever, chills, headache. - Physicial Exam PE: 06/12/19 01:57 GENERAL: +obese. Awake and alert. No acute distress. HEENT: Normocephalic, atraumatic. PERRLA, EOMI. No conjunctival pallor. Sclera are non- icteric. Moist mucous membranes. Oropharynx is clear. NECK: Supple. Full ROM. No JVD. CARDIOVASCULAR:+irregular irregular No murmurs, rubs, or gallops. PULMONARY: Scant rhonchi at the bases, no crackles or wheezing. ABDOMINAL: no focal abdominal tenderness. Soft. Non-tender. Non-distended. MUSCULOSKELETAL: he has intact sarah in the sternotomy incisions. Normal range of motion at all joints. No bony deformities or tenderness. EXTREMITIES: 1+ pitting edema to the lower extremity. No cyanosis. No clubbing. SKIN: +scattered bruising on his torso. Warm and dry. NEUROLOGICAL: Alert, awake, oriented x3. . Cranial nerves 2-12 intact. PSYCHIATRIC: Cooperative. Good eye contact. Appropriate mood and affect. - Medical Decision Making 06/12/19 01:18 74-year-old male with past medical history of COPD, hypothyroidism,hypertension , hyperlipidemia, "leaky heart valve", status post pacemaker, atrial fibrillation on Coumadin, presents because of cough History of present illness he was just discharged from [facility] after having a valve replacement and open heart surgery on last Wednesday06/12/19 01:48 06/12/19 02:[address] scan chest,bnp ,cbc,coags,comp,ekf,trop signed out to Dr Boland
--- NOTE | 2019-06-12 02:02 | PDOC ---
*Physical Exam - Vital Signs Last Vital Signs Temp Pulse Resp BP Pulse Ox 99.2 F 84 16 124/74 95 06/12/19 00:33 06/12/19 00:33 06/12/19 00:33 06/12/19 00:33 06/12/19 00:33 <Nani Boland - Last Filed: 06/12/19 02:28> - Vital Signs Last Vital Signs Temp Pulse Resp BP Pulse Ox 99.2 F 84 16 124/74 95 06/12/19 00:33 06/12/19 00:33 06/12/19 00:33 06/12/19 00:33 06/12/19 00:33 <Sammy Wasserman - Last Filed: 06/12/19 03:14> ED Treatment Course - LABORATORY CBC & Chemistry Diagram: 06/12/19 01:36 06/12/19 01:36 - ADDITIONAL ORDERS Additional order review: Laboratory Results 06/12/19 06/12/19 06/12/19 01:36 01:36 01:36 PT with INR Cancelled INR Cancelled PTT (Actin FS) Cancelled Sodium 139 Potassium 4.1 Chloride 105 Carbon Dioxide 25 Anion Gap 9 BUN 17.9 Creatinine 1.2 Est GFR (CKD-EPI)AfAm 68.15 Est GFR (CKD-EPI)NonAf 58.80 Random Glucose 98 Calcium 7.8 L Total Bilirubin 0.7 AST 257 H ALT 211 H Alkaline Phosphatase 89 Troponin I 0.16 H B-Natriuretic Peptide 1445.5 H Total Protein 5.8 L Albumin 2.7 L 06/12/19 01:36 RBC Cancelled MCV Cancelled MCHC Cancelled RDW Cancelled MPV Cancelled Neutrophils % Cancelled Lymphocytes % Cancelled Monocytes % Cancelled Eosinophils % Cancelled Basophils % Cancelled <Nani Boland - Last Filed: 06/12/19 02:28> - LABORATORY CBC & Chemistry Diagram: 06/12/19 02:12 06/12/19 01:36 - ADDITIONAL ORDERS Additional order review: 06/12/19 01:36 RBC Cancelled MCV Cancelled MCHC Cancelled RDW Cancelled MPV Cancelled Neutrophils % Cancelled Lymphocytes % Cancelled Monocytes % Cancelled Eosinophils % Cancelled Basophils % Cancelled <Sammy Wasserman - Last Filed: 06/12/19 03:14> Medical Decision Making - Medical Decision Making 06/12/19 02:28 Patient Name: PAYTON PIZANO THIS IS A PRELIMINARY REPORT FROM [facility] [employer] DATE OF SERVICE: 2019-06-12 01:47:02 IMAGES: 450 EXAM: CT CHEST WITHOUT CONTRAST Small hemopericardium up to 1.9 cm maximum thickness, presumably related to recent surgery. Correlate clinically and advise followup if indicated. Median sternotomy for mitral valve replacement. Minimal stranding and small gas bubble in anterior mediastinum and minimal anterior chest wall emphysema and subcutaneous fat stranding, probably postoperative changes. Small bilateral pleural effusions. Scattered areas of partial atelectasis bilateral lungs. No pneumonia. Left chest pacemaker. Top normal heart size. Coronary artery disease. Small left Bochdalek hernia containing fat. 1.6 cm hypodense nodule right thyroid lobe, consider ultrasound correlation. Haziness upper central mesenteric fat, possibly edema or mesenteritis, incompletely seen. <Nani Boland - Last Filed: 06/12/19 02:28> - Medical Decision Making 06/12/19 02:[address] Hess. Patient is a 74 yo male w/ pmh of COPD, hypothyroidism and s/p bypass surgery on Wednesday (discharged yesterday from [facility] ) who presents for evaluation of copious mucous causing increased work of breathing. Patient currently pending CT Chest for further evaluation. 06/12/19 03:07 Patient noted to have small hemopericardium and other probably postoperative changes. Also small bilateral pleural effusion and scattered areas of partial atelectasis. Discussed transfer to [facility] with patient given recent surgery. Patient refused transfer as he does not like hospital and requesting admission to this hospital. Inpatient team contacted for admission for further evaluation. Patient also noted to have slightly elevated troponin c/w recent intervention. <Sammy Wasserman - Last Filed: 06/12/19 03:14> *DC/Admit/Observation/Transfer <Nani Boland - Last Filed: 06/12/19 02:28> - Discharge Dispostion Decision to Admit order: Yes <Sammy Wasserman - Last Filed: 06/12/19 03:14> Diagnosis at time of Disposition: History of open heart surgery, Respiratory distress, Pleural effusion, Hemopericardium COPD (chronic obstructive pulmonary disease) Qualifiers: COPD type: unspecified COPD Qualified Code(s): J44.9 - Chronic obstructive pulmonary disease, unspecified
[2019-06-12 02:17] LABS: ALBUMIN 2.7 g/dl (3.4-5.0); BILIRUBIN,TOTAL 0.7 mg/dL (0.2-1); BLOOD UREA NITROGEN 17.9 mg/dL (7-18); CALCIUM 7.8 mg/dL (8.5-10.1); CREATININE 1.2 mg/dL (0.55-1.3); POTASSIUM 4.1 mmol/L (3.5-5.1); TOT PROT 5.8 g/dl (6.4-8.2)
[2019-06-12 02:18] LABS: N-TERMINAL BNP 1445.5 pg/ml (5-450)
[2019-06-12 02:26] LABS: BASO % 1.1 % (0-2.0); EOS % 2.4 % (0-4.5); HEMATOCRIT 28.2 % (35.4-49); HEMOGLOBIN 9.4 GM/dL (11.7-16.9); LYMPH % 16.3 % (8-40); MCH 29.8 pg (25.7-33.7); MCHC 33.5 g/dl (32.0-35.9); MEAN CELL VOLUME 89.1 fl (80-96); MEAN PLT VOLUME 8.2 fl (7.5-11.1); MONO % 12.3 % (3.8-10.2); NEUT % 67.9 % (42.8-82.8); PLATELET COUNT 179 K/MM3 (134-434); RBC 3.16 M/mm3 (4.00-5.60); WHITE BLOOD COUNT 9.9 K/mm3 (4.0-10.0)
[2019-06-12 02:39] LABS: INR 1.3 (0.83-1.09); PROTHROMBIN TIME (PATIENT) 15.4 SEC (9.7-13.0)
--- NOTE | 2019-06-12 03:12 | PDOC ---
*Physical Exam - Vital Signs Last Vital Signs Temp Pulse Resp BP Pulse Ox 99.2 F 84 16 124/74 95 06/12/19 00:33 06/12/19 00:33 06/12/19 00:33 06/12/19 00:33 06/12/19 00:33 ED Treatment Course - LABORATORY CBC & Chemistry Diagram: 06/12/19 02:12 06/12/19 01:36 - ADDITIONAL ORDERS Additional order review: Laboratory Results 06/12/19 06/12/19 06/12/19 02:12 02:12 01:36 PT with INR 15.40 H Cancelled INR 1.30 H Cancelled PTT (Actin FS) 27.0 Cancelled Sodium Potassium Chloride Carbon Dioxide Anion Gap BUN Creatinine Est GFR (CKD-EPI)AfAm Est GFR (CKD-EPI)NonAf Random Glucose Calcium Total Bilirubin AST ALT Alkaline Phosphatase Troponin I 0.15 H B-Natriuretic Peptide Total Protein Albumin 06/12/19 06/12/19 01:36 01:36 PT with INR INR PTT (Actin FS) Sodium 139 Potassium 4.1 Chloride 105 Carbon Dioxide 25 Anion Gap 9 BUN 17.9 Creatinine 1.2 Est GFR (CKD-EPI)AfAm 68.15 Est GFR (CKD-EPI)NonAf 58.80 Random Glucose 98 Calcium 7.8 L Total Bilirubin 0.7 AST 257 H ALT 211 H Alkaline Phosphatase 89 Troponin I 0.16 H B-Natriuretic Peptide 1445.5 H Total Protein 5.8 L Albumin 2.7 L 06/12/19 06/12/19 02:12 01:36 RBC 3.16 L Cancelled MCV 89.1 Cancelled MCHC 33.5 Cancelled RDW 15.0 Cancelled MPV 8.2 Cancelled Neutrophils % 67.9 Cancelled Lymphocytes % 16.3 D Cancelled Monocytes % 12.3 H Cancelled Eosinophils % 2.4 Cancelled Basophils % 1.1 Cancelled Medical Decision Making - Medical Decision Making 06/12/19 03:11 Pt comes with chest pain and cough; He just had cabg at [facility]. Pt doesnt want to go back to [facility]. Wants to be admitted here as his PMD [facility] is here. *DC/Admit/Observation/Transfer Diagnosis at time of Disposition: History of open heart surgery, Respiratory distress, Pleural effusion COPD (chronic obstructive pulmonary disease) Qualifiers: COPD type: unspecified COPD Qualified Code(s): J44.9 - Chronic obstructive pulmonary disease, unspecified - Referrals - Patient Instructions - Post Discharge Activity
--- NOTE | 2019-06-12 03:55 | HP ---
Admitting History and Physical - Primary Care Physician PCP: Angeles Pulliam - Admission Chief Complaint: Cough with Phelgm History of Present Illness: This is a 74 y/o man with a PMHx of HTN, HLD, COPD, Hypothyroid, CAD s/p PM, s/ p CABG, leaky valve repair ([facility] 06/05-06/10). Who presents to the ED with productive cough- white to beige phlegm x 1 day worse this am. Patient states" I feel like I'm choking". Patient's reports since the patient has been discharged they did not get to pickle pumper the meds from the pharmacy. The patient denies CP, palpitations, AP, N/V/D, constipation, dysuria. History Source: Patient, Family Member Limitations to Obtaining History: Poor Historian - Past Medical History Cardiovascular: Yes: AFIB, HTN, Hyperlipdemia, Mitral Insufficiency Pulmonary: Yes: COPD, Sleep Apnea Endocrine: Yes: Hypothyroidism - Past Surgical History Past Surgical History: Yes: CABG, Permanent Pacemaker - Smoking History Smoking history: Former smoker Have you smoked in the past 12 months: No Aproximately how many cigarettes per day: 0 If you are a former smoker, when did you quit?: 1998 - Alcohol/Substance Use Hx Alcohol Use: Yes (prior use 15-18beers on wed and wednesday x 25yrs, he currently does not drink) History of Substance Use: reports: None - Social History Usual Living Arrangement: Yes: With Spouse ADL: Independent 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 History of Recent Travel: No Home Medications - Allergies Allergies/Adverse Reactions: Allergies Allergy/AdvReac Type Severity Reaction Status Date / Time metoprolol AdvReac Intermediate Verified 06/12/19 00:33 - Home Medications Home Medications: Ambulatory Orders Cholecalciferol (Vitamin D3) [Vitamin D3] 2,000 unit PO DAILY 03/06/15 Dutasteride/Tamsulosin HCl [Jazmin 0.5-0.4 mg Capsule] 1 each PO PRN 03/06/15 Furosemide [Lasix -] 20 mg PO DAILY 03/06/15 Montelukast Na [Singulair -] 10 mg PO HS 03/06/15 Olmesartan Medoxomil [Benicar -] 20 mg PO BID 03/06/15 Tiotropium [place] [Spiriva] 1 inh PO DAILY PRN 03/06/15 Warfarin Sodium [Coumadin] 4 mg PO HS 10/02/16 Albuterol 0.083% Nebulizer Wendy [Ventolin 0.083% Nebulizer Soln -] 1 neb NEB Q6H 01/05/17 Diltiazem Cd [Cardizem Cd -] 180 mg PO DAILY 01/05/17 Levothyroxine [Synthroid -] 50 mcg PO DAILY 01/05/17 Salmeterol/Fluticasone [Advair 250Mcg/50Mcg -] 1 inh PO BID 01/05/17 Atorvastatin Calcium 40 mg PO DAILY 03/04/19 Umeclidinium [place] [Incruse Ellipta] 62.5 mcg IH 1XPACU 03/04/19 Docusate Sodium [Colace -] 100 mg PO BID capsule 03/06/19 Nitroglycerin Sublingual [Nitrostat -] 0.4 mg SL Q5M PRN tab 03/06/19 Sennosides [Senna -] 2 tab PO HS tablet 03/06/19 Family Disease History - Family Disease History Family Disease History: Other: Father ( (68) cirrhosis), Mother ( (84) cervical cancer), Brother ( (68) Cirrhosis), Sister ( alive (65) mitral valve dz) Review of Systems - Review of Systems Constitutional: reports: Malaise Eyes: reports: No Symptoms HENT: reports: Throat Pain Cardiovascular: reports: Shortness of Breath Respiratory: reports: Cough Gastrointestinal: reports: No Symptoms Genitourinary: reports: No Symptoms Breasts: reports: No Symptoms Reported Musculoskeletal: reports: Joint Swelling Integumentary: reports: No Symptoms Neurological: reports: No Symptoms Endocrine: reports: No Symptoms Hematology/Lymphatic: reports: No Symptoms Psychiatric: reports: No Symptoms Physical Examination Vital Signs: Vital Signs Temperature 99.2 F 06/12/19 00:33 Pulse Rate 84 06/12/19 00:33 Respiratory Rate 16 06/12/19 00:33 Blood Pressure 124/74 06/12/19 00:33 O2 Sat by Pulse Oximetry (%) 95 06/12/19 00:33 Constitutional: Yes: No Distress, Anxious, Obese Eyes: Yes: WNL, Conjunctiva Clear, EOM Intact, PERRL HENT: Yes: WNL, Atraumatic, Normocephalic Neck: Yes: WNL, Supple, Trachea Midline Cardiovascular: Yes: Pulse Irregular, S1, S2 Respiratory: Yes: Diminished Gastrointestinal: Yes: Normal Bowel Sounds, Soft, Abdomen, Obese Breast(s): Yes: WNL Musculoskeletal: Yes: WNL Extremities: Yes: WNL Edema: Yes Edema: LLE: 1+, RLE: 1+ Peripheral Pulses WNL: Yes Wound/Incision: Yes: Other (surgical wounds intact) Neurological: Yes: Alert, Confusion ...Motor Strength: WNL Psychiatric: Yes: WNL, Alert Labs: CBC, BMP 06/12/19 02:12 06/12/19 01:36 Laboratory Results - last 24 hr 06/12/19 06/12/19 06/12/19 01:36 01:36 01:36 WBC Cancelled Corrected WBC (auto) Cancelled RBC Cancelled Hgb Cancelled Hct Cancelled MCV Cancelled MCH Cancelled MCHC Cancelled RDW Cancelled Plt Count Cancelled MPV Cancelled Absolute Neuts (auto) Cancelled Absolute Lymphs (auto) Cancelled Absolute Monos (auto) Cancelled Absolute Eos (auto) Cancelled Absolute Basos (auto) Cancelled Add Manual Diff Cancelled Total Counted Neutrophils % Cancelled Neutrophils % (Manual) Band Neutrophils % Lymphocytes % Cancelled Lymphocytes % (Manual) Monocytes % Cancelled Monocytes % (Manual) Eosinophils % Cancelled Eosinophils % (Manual) Basophils % Cancelled Nucleated RBC % Cancelled Hypochromia Platelet Estimate Cancelled Platelet Comment Cancelled Normal RBC Morphology Cancelled Polychromasia PT with INR INR PTT (Actin FS) Sodium 139 Potassium 4.1 Chloride 105 Carbon Dioxide 25 Anion Gap 9 BUN 17.9 Creatinine 1.2 Est GFR (CKD-EPI)AfAm 68.15 Est GFR (CKD-EPI)NonAf 58.80 Random Glucose 98 Calcium 7.8 L Total Bilirubin 0.7 AST 257 H ALT 211 H Alkaline Phosphatase 89 Troponin I 0.16 H B-Natriuretic Peptide 1445.5 H Total Protein 5.8 L Albumin 2.7 L 06/12/19 06/12/19 06/12/19 01:36 02:12 02:12 WBC 9.9 Corrected WBC (auto) RBC 3.16 L Hgb 9.4 L Hct 28.2 L D MCV 89.1 MCH 29.8 MCHC 33.5 RDW 15.0 Plt Count 179 MPV 8.2 Absolute Neuts (auto) 6.8 Absolute Lymphs (auto) Absolute Monos (auto) Absolute Eos (auto) Absolute Basos (auto) Add Manual Diff Total Counted 100 Neutrophils % 67.9 Neutrophils % (Manual) 74.0 Band Neutrophils % 3.0 Lymphocytes % 16.3 D Lymphocytes % (Manual) 13.0 Monocytes % 12.3 H Monocytes % (Manual) 8 Eosinophils % 2.4 Eosinophils % (Manual) 1.0 Basophils % 1.1 Nucleated RBC % 1 H Hypochromia 1+ Platelet Estimate Adequate Platelet Comment No clumping noted Normal RBC Morphology Polychromasia 1+ PT with INR Cancelled 15.40 H INR Cancelled 1.30 H PTT (Actin FS) Cancelled 27.0 Sodium Potassium Chloride Carbon Dioxide Anion Gap BUN Creatinine Est GFR (CKD-EPI)AfAm Est GFR (CKD-EPI)NonAf Random Glucose Calcium Total Bilirubin AST ALT Alkaline Phosphatase Troponin I B-Natriuretic Peptide Total Protein Albumin 06/12/19 02:12 WBC Corrected WBC (auto) RBC Hgb Hct MCV MCH MCHC RDW Plt Count MPV Absolute Neuts (auto) Absolute Lymphs (auto) Absolute Monos (auto) Absolute Eos (auto) Absolute Basos (auto) Add Manual Diff Total Counted Neutrophils % Neutrophils % (Manual) Band Neutrophils % Lymphocytes % Lymphocytes % (Manual) Monocytes % Monocytes % (Manual) Eosinophils % Eosinophils % (Manual) Basophils % Nucleated RBC % Hypochromia Platelet Estimate Platelet Comment Normal RBC Morphology Polychromasia PT with INR INR PTT (Actin FS) Sodium Potassium Chloride Carbon Dioxide Anion Gap BUN Creatinine Est GFR (CKD-EPI)AfAm Est GFR (CKD-EPI)NonAf Random Glucose Calcium Total Bilirubin AST ALT Alkaline Phosphatase Troponin I 0.15 H B-Natriuretic Peptide Total Protein Albumin Intake & Output 06/09/19 06/10/19 06/11/19 06/12/19 23:59 23:59 23:59 23:59 Weight 105.687 kg Current Medications Generic Name Dose Route Start Last Admin Trade Name Freq PRN Reason Stop Dose Admin Albuterol Sulfate 1 amp 06/12/19 08:00 Ventolin 0.083% Nebulizer Soln - NEB RQID PHI Guaifenesin 10 ml 06/12/19 04:56 Robitussin - PO Q6H PRN COUGH Levothyroxine Sodium 75 mcg 06/12/19 07:00 Synthroid - PO DAILY@0700 PHI Non-Formulary Medication 62.5 mcg 06/12/19 10:00 Umeclidinium [place] [Incruse Ellipta] IH DAILY PHI Tiotropium [place] 2 puff 06/12/19 10:00 Spiriva Respimat IH DAILY PHI Imaging - Results Cat Scan: Report Reviewed, Image Reviewed EKG: Image Reviewed Problem List - Problems (1) Cough Code(s): R05 - COUGH (2) Hemopericardium Code(s): I31.2 - HEMOPERICARDIUM, NOT ELSEWHERE CLASSIFIED (3) Pleural effusion Code(s): J90 - PLEURAL EFFUSION, NOT ELSEWHERE CLASSIFIED (4) History of open heart surgery Code(s): Z98.890 - OTHER SPECIFIED POSTPROCEDURAL STATES (5) COPD (chronic obstructive pulmonary disease) Code(s): J44.9 - CHRONIC OBSTRUCTIVE PULMONARY DISEASE, UNSPECIFIED Qualifiers: COPD type: unspecified COPD Qualified Code(s): J44.9 - Chronic obstructive pulmonary disease, unspecified (6) HLD (hyperlipidemia) Code(s): E78.5 - HYPERLIPIDEMIA, UNSPECIFIED (7) Hypertension Code(s): I10 - ESSENTIAL (PRIMARY) HYPERTENSION Qualifiers: Hypertension type: essential hypertension Qualified Code(s): I10 - Essential (primary) hypertension (8) Hypothyroidism Code(s): E03.9 - HYPOTHYROIDISM, UNSPECIFIED Assessment/Plan This is a 74 y/o man with a PMHx of HTN, HLD, COPD (no O2), Hypothyroid, CAD. s/ p CABG, leaky Valve Replacement ([facility] Dr. Nguyen, 06/05-06/10). Admitted for Hemopericardium, Pleural Effusions, Elevated Troponin for further evaluation of their emergent condition. Plan: Admit Cardiac Monitoring Serial Enzymes Appreciate Cardiology consult Appreciate Pulmonology consult Chest CT- small b/l pleural effusion, small hemopericardium Continue home meds when verified- daughter to bring in d/c summary Incentive Spirometer Guiafenesin prn Albuterol nebs Monitor CBC, BMP Consider Swallow Eval Will keep NPO for now Elevate extremities SCDs Dispo: Requires Inpatient Care Visit type - Emergency Visit Emergency Visit: Yes ED Registration Date: 06/12/19 Care time: The patient presented to the Emergency Department on the above date and was hospitalized for further evaluation of their emergent condition. - New Patient This patient is new to me today: Yes Date on this admission: 06/12/19 - Critical Care Critical Care patient: No
[2019-06-12 04:37] LABS: PLATELET ESTIMATE ADEQUATE
[2019-06-12] MEDS ORDERED: LEVOTHYROXINE NA 25 MCG TABLET (FP) ONE (07:14)
[2019-06-12] MEDS: LEVOTHYROXINE NA 75 MCG TABLET (FP) PO SCH (07:19)
[2019-06-12] MEDS: ALBUTEROL SO4 0.083% IH SOL 2.5 MG/3 ML VIAL.NEB. NEB SCH ×4 (09:00→20:22)
[2019-06-12] MEDS ORDERED: PATIENT'S OWN MEDICATION (NON-FORMULARY) (Umeclidinium Bromide [Incruse Ellipta] 62.5 MCG) IH SCH (10:00)
--- NOTE | 2019-06-12 10:29 | PN ---
Progress Note (short form) - Note Progress Note: pt seen/ examined in er chart reviewed sitting in chair feels good wants to go home denies cp/ sob recent cabg- at [facility] Vital Signs Temp 99.2 F 06/12/19 00:33 Pulse 86 06/12/19 02:10 Resp 16 06/12/19 00:33 BP 124/74 06/12/19 00:33 Pulse Ox 93 L 06/12/19 02:10 Intake & Output 06/11/19 06/11/19 06/12/19 11:59 23:59 11:59 Weight 233 lb Other: Height 5 ft 6 in Body Mass Index (BMI) 37.5 Active Medications Albuterol Sulfate (Ventolin 0.083% Nebulizer Soln -) 1 amp NEB RQID PHI Guaifenesin (Robitussin -) 10 ml PO Q6H PRN PRN Reason: COUGH Levothyroxine Sodium (Synthroid -) 75 mcg PO DAILY@0700 [facility] Last Admin: 06/12/19 07:19 Dose: 75 mcg Non-Formulary Medication (Umeclidinium [place] [Incruse Ellipta]) 62.5 mcg IH DAILY [facility] Tiotropium [place] (Spiriva Respimat) 2 puff IH DAILY [facility] CBC, BMP 06/12/19 02:12 06/12/19 01:36 CMP Sodium 139 mmol/L (136-145) 06/12/19 01:36 Potassium 4.1 mmol/L (3.5-5.1) 06/12/19 01:36 Chloride 105 mmol/L (98-107) 06/12/19 01:36 Carbon Dioxide 25 mmol/L (21-32) 06/12/19 01:36 Anion Gap 9 MMOL/L (8-16) 06/12/19 01:36 BUN 17.9 mg/dL (7-18) 06/12/19 01:36 Creatinine 1.2 mg/dL (0.55-1.3) 06/12/19 01:36 Est GFR (CKD-EPI)AfAm 68.15 06/12/19 01:36 Est GFR (CKD-EPI)NonAf 58.80 06/12/19 01:36 Random Glucose 98 mg/dL (74-106) 06/12/19 01:36 Calcium 7.8 mg/dL (8.5-10.1) L 06/12/19 01:36 Total Bilirubin 0.7 mg/dL (0.2-1) 06/12/19 01:36 AST 257 U/L (15-37) H 06/12/19 01:36 ALT 211 U/L (13-61) H 06/12/19 01:36 Alkaline Phosphatase 89 U/L (45-117) 06/12/19 01:36 Troponin I 0.15 ng/ml (0.00-0.05) H 06/12/19 02:12 B-Natriuretic Peptide 1445.5 pg/ml (5-450) H 06/12/19 01:36 Total Protein 5.8 g/dl (6.4-8.2) L 06/12/19 01:36 Albumin 2.7 g/dl (3.4-5.0) L 06/12/19 01:36 ct chest - official report pending INR, PTT INR 1.30 (0.83-1.09) H 06/12/19 02:12 physical exam Comfortable Sitting in chair Heart sounds--irregular Healing scars--chest Lungs--- diminished at bases Abdominal-soft Extremities-no edema Neuro--alert and awake Assessment and plan Recent CABG Pleural effusion Hemopericardium--- unofficial report--- patient clinically stable Await cardiology consult Will hold Coumadin--- in light of hemopericardium --. Cardiology follows Lasix IV ? We will follow Discussed in detail with patient. Problem List - Problems (1) COPD (chronic obstructive pulmonary disease) Code(s): J44.9 - CHRONIC OBSTRUCTIVE PULMONARY DISEASE, UNSPECIFIED Qualifiers: COPD type: unspecified COPD Qualified Code(s): J44.9 - Chronic obstructive pulmonary disease, unspecified (2) Hemopericardium Code(s): I31.2 - HEMOPERICARDIUM, NOT ELSEWHERE CLASSIFIED (3) History of open heart surgery Code(s): Z98.890 - OTHER SPECIFIED POSTPROCEDURAL STATES (4) Pleural effusion Code(s): J90 - PLEURAL EFFUSION, NOT ELSEWHERE CLASSIFIED
[2019-06-12] MEDS: TIOTROPIUM BROMIDE 2.5 MCG (SPIRIVA) RESPIMAT INHALER IH SCH (11:30)
[2019-06-12] MEDS ORDERED: ALBUTEROL SO4 0.083% IH SOL 2.5 MG/3 ML VIAL.NEB. NEB ONE (11:36)
--- NOTE | 2019-06-12 11:49 | EKG ---
Test Reason : Blood Pressure : / mmHG Vent. Rate : 087 BPM Atrial Rate : 076 BPM P-R Int : 000 ms QRS Dur : 152 ms QT Int : 438 ms P-R-T Axes : 010 -67 091 degrees QTc Int : 527 ms Ventricular-paced rhythm WITH OCCASIONAL PREMATURE VENTRICULAR COMPLEXES ABNORMAL ECG WHEN COMPARED WITH ECG OF 12-JUN-2019 00:29, NO SIGNIFICANT CHANGE WAS FOUND Confirmed by MORIS PERALES MD ([id number]) on 06/12/2019 11:48:59 AM Referred By: Confirmed By:MORIS PERALES MD
--- NOTE | 2019-06-12 11:51 | EKG ---
Test Reason : Blood Pressure : / mmHG Vent. Rate : 086 BPM Atrial Rate : 394 BPM P-R Int : 000 ms QRS Dur : 154 ms QT Int : 432 ms P-R-T Axes : 000 -72 089 degrees QTc Int : 516 ms Ventricular-paced rhythm WITH OCCASIONAL PREMATURE VENTRICULAR COMPLEXES ABNORMAL ECG WHEN COMPARED WITH ECG OF 04-MAR-2019 14:41, PREMATURE VENTRICULAR COMPLEXES ARE NOW PRESENT VENT. RATE HAS INCREASED BY 26 BPM Confirmed by ANGELLA WOMACK, MORIS ([id number]) on 06/12/2019 11:50:48 AM Referred By: Confirmed By:MORIS PERALES MD
--- NOTE | 2019-06-12 12:55 | CON.CARD ---
Consult Consult Specialty:: cardiology Referred by:: Heraclio Reason for Consultation:: Shortness of breath and cough - History of Present Illness Chief Complaint: CHF. Coronary artery disease. Status post CABG History of Present Illness: The patient is a 74-year-old man, we've a history of hypertension, hyperlipidemia, COPD, obstructive sleep apnea, hypothyroidism, permanent pacemaker, chronic atrial fibrillation, coronary artery disease, status post CABG with a single QUINTANILLA to the LAD and tissue MVR on 06/04/[address] Martinez now presenting with productive cough and shortness of breath. No chest pains. No palpitations. Chest CT suggestive of pneumonia with a moderate size pericardial effusion. The patient improved with diuretics and nebulizers. Is currently fairly comfortable and offers no specific complaints. - History Source History Provided By: Patient, Medical Record Limitations to Obtaining History: No Limitations - Past Medical History Cardio/Vascular: Yes: AFIB, HTN, Hyperlipdemia, Mitral Insufficiency Pulmonary: Yes: COPD, Sleep Apnea Endocrine: Yes: Hypothyroidism Additional Medical History: OBESITY - Past Surgical History Past Surgical History: Yes: CABG, Permanent Pacemaker - Alcohol/Substance Use Hx Alcohol Use: Yes (prior use 15-18beers on wed and wednesday x 25yrs, he currently does not drink) History of Substance Use: reports: None - Smoking History Smoking history: Former smoker Have you smoked in the past 12 months: No Aproximately how many cigarettes per day: 0 If you are a former smoker, when did you quit?: 1998 - Social History Usual Living Arrangement: With Spouse ADL: Independent 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 History of Recent Travel: No Home Medications - Allergies Allergies/Adverse Reactions: Allergies Allergy/AdvReac Type Severity Reaction Status Date / Time metoprolol AdvReac Intermediate Verified 06/12/19 00:33 - Home Medications Home Medications: Ambulatory Orders Cholecalciferol (Vitamin D3) [Vitamin D3] 2,000 unit PO DAILY 03/06/15 Dutasteride/Tamsulosin HCl [Jazmin 0.5-0.4 mg Capsule] 1 each PO PRN 03/06/15 Furosemide [Lasix -] 20 mg PO DAILY 03/06/15 Montelukast Na [Singulair -] 10 mg PO HS 03/06/15 Olmesartan Medoxomil [Benicar -] 20 mg PO BID 03/06/15 Tiotropium [place] [Spiriva] 1 inh PO DAILY PRN 03/06/15 Warfarin Sodium [Coumadin] 4 mg PO HS 10/02/16 Albuterol 0.083% Nebulizer Wendy [Ventolin 0.083% Nebulizer Soln -] 1 neb NEB Q6H 01/05/17 Diltiazem Cd [Cardizem Cd -] 180 mg PO DAILY 01/05/17 Levothyroxine [Synthroid -] 50 mcg PO DAILY 01/05/17 Salmeterol/Fluticasone [Advair 250Mcg/50Mcg -] 1 inh PO BID 01/05/17 Atorvastatin Calcium 40 mg PO DAILY 03/04/19 Umeclidinium [place] [Incruse Ellipta] 62.5 mcg IH 1XPACU 03/04/19 Docusate Sodium [Colace -] 100 mg PO BID capsule 03/06/19 Nitroglycerin Sublingual [Nitrostat -] 0.4 mg SL Q5M PRN tab 03/06/19 Sennosides [Senna -] 2 tab PO HS tablet 03/06/19 Family Disease History - Family Disease History Family Disease History: Other: Father ( (68) cirrhosis), Mother ( (84) cervical cancer), Brother ( (68) Cirrhosis), Sister ( alive (65) mitral valve dz) Review of Systems - Review of Systems Constitutional: reports: No Symptoms Eyes: reports: No Symptoms HENT: reports: No Symptoms Neck: reports: No Symptoms Cardiovascular: reports: Edema, Shortness of Breath Respiratory: reports: Cough, SOB Gastrointestinal: reports: No Symptoms Genitourinary: reports: No Symptoms Breasts: reports: No Symptoms Reported Musculoskeletal: reports: No Symptoms Integumentary: reports: No Symptoms Neurological: reports: No Symptoms Endocrine: reports: No Symptoms Hematology/Lymphatic: reports: No Symptoms Psychiatric: reports: No Symptoms Vital Signs: Vital Signs Temperature 99.2 F 06/12/19 00:33 Pulse Rate 86 06/12/19 02:10 Respiratory Rate 16 06/12/19 00:33 Blood Pressure 124/74 06/12/19 00:33 O2 Sat by Pulse Oximetry (%) 93 L 06/12/19 02:10 Constitutional: Yes: No Distress, Calm, Obese Eyes: Yes: WNL, Conjunctiva Clear, EOM Intact HENT: Yes: WNL, Atraumatic, Normocephalic Neck: Yes: WNL, Supple, Trachea Midline Respiratory: Yes: Cough, On Nasal O2, Rales, SOB Gastrointestinal: Yes: WNL, Normal Bowel Sounds, Soft Renal/: Yes: WNL Cardiovascular: Yes: Pulse Irregular JVD: No Carotid Bruit: No PMI: Non-Displaced Heart Sounds: Yes: S1, S2 Murmur: Yes: Systolic Murmur, Grade 2 Musculoskeletal: Yes: WNL Edema: Yes Edema: LLE: Trace, RLE: Trace Peripheral Pulses WNL: Yes Peripheral Pulses: 2+ Left Carotid, 2+ Right Carotid, 2+ Left Femoral, 2+ Right Femoral, 2+ Left Popliteal, 2+ Right Popliteal, 2+ Left Doralis Pedis, 2+ Right Dorsalis Pedis Integumentary: Yes: WNL Neurological: Yes: WNL, Alert, Oriented ...Motor Strength: WNL - Other Data Labs, Other Data: CBC, BMP 06/12/19 02:12 06/12/19 01:36 INR, PTT INR 1.30 (0.83-1.09) H 06/12/19 02:12 Troponin, BNP 06/12/19 06/12/19 06/12/19 01:36 02:12 10:52 Troponin I 0.16 H 0.15 H 0.13 H B-Natriuretic Peptide 1445.5 H Troponin, BNP 06/12/19 06/12/19 06/12/19 01:36 02:12 10:52 Troponin I 0.16 H 0.15 H 0.13 H B-Natriuretic Peptide 1445.5 H Assessment/Plan The patient is a 74-year-old man, we've a history of hypertension, hyperlipidemia, COPD, obstructive sleep apnea, hypothyroidism, permanent pacemaker, chronic atrial fibrillation, coronary artery disease, status post CABG with a single QUINTANILLA to the LAD and tissue MVR on 06/04/[address] Martinez now presenting with productive cough and shortness of breath. No chest pains. No palpitations. Chest CT suggestive of pneumonia with a moderate size pericardial effusion. The patient improved with diuretics and nebulizers. Is currently fairly comfortable and offers no specific complaints. The patient is clinically and symptomatically better. Give Lasix 40 mg IV twice daily. Needs anticoagulation for atrial fibrillation. Target INR should be 23. Please continue home medications. Please arrange for an echocardiogram. Please transferred to the telemetry floor. Please arrange for pulmonary consultation given findings on chest CT. We'll follow with you.
[2019-06-12] MEDS: guaiFENesin 200 MG/10 ML 10 ML UNIT-DOSE CUPS PO PRN (13:39)
[2019-06-12] MEDS ORDERED: FUROSEMIDE 40 MG/4 ML INJECTABLE VIAL ONE (13:41)
[2019-06-12] MEDS ORDERED: PIPERACILLIN/TAZOB 3.375 GM 3.375 GM/50 ML BAG IVPB ONE (13:42)
[2019-06-12] MEDS ORDERED: PIPERACILLIN/TAZOB 3.375 GM 3.375 GM in DEXTROSE 5%-WATER - 50 ML IVPB ONE (14:00)
--- NOTE | 2019-06-12 14:00 | CON.PULM ---
Consult Consult Specialty:: PULM/CCM Referred by:: YING Reason for Consultation:: SOB - History of Present Illness Chief Complaint: SOB History of Present Illness: 74 M, HTN, HLD, COPD, Hypothyroid, CAD s/p PM, OSAS, and CABG with valve repair last Wednesday at [facility]. he was just discharged on 06/10/2019. Since discharge has been experiencing cough with white to beige phlegm. He reports that secretions make him feel like choking. No fever or chills. He does report that his and daughter have resolving URI symptoms. No CP or palpitations. No hemoptysis. CT: bilateral pleural effusions and associated atelectatic changes - History Source History Provided By: Patient Limitations to Obtaining History: No Limitations - Past Medical History Cardio/Vascular: Yes: AFIB, HTN, Hyperlipdemia, Mitral Insufficiency Pulmonary: Yes: Bronchitis, COPD, Sleep Apnea. No: Asthma, O2 Dependent, Pneumonia, Previously Intubated, Pulmonary Embolus, Pulmonary Fibrosis Endocrine: Yes: Hypothyroidism Additional Medical History: OBESITY - Past Surgical History Past Surgical History: Yes: CABG, Permanent Pacemaker - Alcohol/Substance Use Hx Alcohol Use: Yes (prior use 15-18beers on wed and wednesday x 25yrs, he currently does not drink) History of Substance Use: reports: None - Smoking History Smoking history: Former smoker Have you smoked in the past 12 months: No Aproximately how many cigarettes per day: 0 If you are a former smoker, when did you quit?: 1998 - Social History Usual Living Arrangement: With Spouse ADL: Independent 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 History of Recent Travel: No Home Medications - Allergies Allergies/Adverse Reactions: Allergies Allergy/AdvReac Type Severity Reaction Status Date / Time metoprolol AdvReac Intermediate Verified 06/12/19 00:33 - Home Medications Home Medications: Ambulatory Orders Cholecalciferol (Vitamin D3) [Vitamin D3] 2,000 unit PO DAILY 03/06/15 Dutasteride/Tamsulosin HCl [Ajzmin 0.5-0.4 mg Capsule] 1 each PO PRN 03/06/15 Furosemide [Lasix -] 20 mg PO DAILY 03/06/15 Montelukast Na [Singulair -] 10 mg PO HS 03/06/15 Olmesartan Medoxomil [Benicar -] 20 mg PO BID 03/06/15 Tiotropium [place] [Spiriva] 1 inh PO DAILY PRN 03/06/15 Warfarin Sodium [Coumadin] 4 mg PO HS 10/02/16 Albuterol 0.083% Nebulizer Wendy [Ventolin 0.083% Nebulizer Soln -] 1 neb NEB Q6H 01/05/17 Diltiazem Cd [Cardizem Cd -] 180 mg PO DAILY 01/05/17 Levothyroxine [Synthroid -] 50 mcg PO DAILY 01/05/17 Salmeterol/Fluticasone [Advair 250Mcg/50Mcg -] 1 inh PO BID 01/05/17 Atorvastatin Calcium 40 mg PO DAILY 03/04/19 Umeclidinium [place] [Incruse Ellipta] 62.5 mcg IH [id number] 03/04/19 Docusate Sodium [Colace -] 100 mg PO BID capsule 03/06/19 Nitroglycerin Sublingual [Nitrostat -] 0.4 mg SL Q5M PRN tab 03/06/19 Sennosides [Senna -] 2 tab PO HS tablet 03/06/19 Family Disease History - Family Disease History Family Disease History: Other: Father ( (68) cirrhosis), Mother ( (84) cervical cancer), Brother ( (68) Cirrhosis), Sister ( alive (65) mitral valve dz) Review of Systems - Review of Systems Constitutional: reports: Malaise. denies: Chills, Fever, Night Sweats, Unintentional Wgt. Loss, Weakness Eyes: reports: No Symptoms HENT: reports: No Symptoms Neck: reports: No Symptoms Cardiovascular: reports: Shortness of Breath. denies: Chest Pain, Edema, Palpitations Respiratory: reports: Cough, Orthopnea, Snoring, SOB, SOB on Exertion. denies: Hemoptysis, Wheezing Gastrointestinal: reports: No Symptoms Genitourinary: reports: No Symptoms Breasts: reports: No Symptoms Reported Musculoskeletal: reports: No Symptoms Integumentary: reports: No Symptoms Neurological: reports: No Symptoms Endocrine: reports: No Symptoms Hematology/Lymphatic: reports: No Symptoms Psychiatric: reports: No Symptoms Physical Exam Vital Sings: Vital Signs Temperature 99.2 F 06/12/19 00:33 Pulse Rate 86 06/12/19 02:10 Respiratory Rate 16 06/12/19 00:33 Blood Pressure 124/74 06/12/19 00:33 O2 Sat by Pulse Oximetry (%) 93 L 06/12/19 02:10 Constitutional: Yes: No Distress, Obese Eyes: Yes: Conjunctiva Clear, EOM Intact HENT: Yes: Atraumatic Neck: Yes: Supple, Trachea Midline Cardiovascular: Yes: Regular Rate and Rhythm Respiratory: Yes: Cough, Diminished, Poor Air Entry, Rhonchi. No: Accessory Muscle Use, Rales, SOB, SOB on Exertion, Stridor, Tachypnea, Wheezes ...Inspection: Yes: Other (multiple healing surgical scars) ...Clubbing: No Gastrointestinal: Yes: Normal Bowel Sounds, Soft, Abdomen, Obese Renal/: Yes: WNL Musculoskeletal: Yes: WNL Extremities: Yes: WNL Edema: No Peripheral Pulses WNL: Yes Integumentary: Yes: WNL, Other (multiple areas of post op changes ) Neurological: Yes: WNL, Alert, Oriented ...Motor Strength: WNL Psychiatric: Yes: WNL, Alert, Oriented Labs: CBC, BMP 06/12/19 02:12 06/12/19 01:36 Imaging - Results Chest X-ray: Report Reviewed, Image Reviewed Cat Scan: Report Reviewed, Image Reviewed Problem List - Problems (1) Atelectasis of both lungs Code(s): J98.11 - ATELECTASIS (2) COPD (chronic obstructive pulmonary disease) Code(s): J44.9 - CHRONIC OBSTRUCTIVE PULMONARY DISEASE, UNSPECIFIED Qualifiers: COPD type: unspecified COPD Qualified Code(s): J44.9 - Chronic obstructive pulmonary disease, unspecified (3) History of open heart surgery Code(s): Z98.890 - OTHER SPECIFIED POSTPROCEDURAL STATES (4) Pleural effusion Code(s): J90 - PLEURAL EFFUSION, NOT ELSEWHERE CLASSIFIED (5) BPH (benign prostatic hyperplasia) Code(s): N40.0 - BENIGN PROSTATIC HYPERPLASIA WITHOUT LOWER URINRY TRACT SYMP (6) Cough Code(s): R05 - COUGH (7) HLD (hyperlipidemia) Code(s): E78.5 - HYPERLIPIDEMIA, UNSPECIFIED (8) Hypertension Code(s): I10 - ESSENTIAL (PRIMARY) HYPERTENSION Qualifiers: Hypertension type: essential hypertension Qualified Code(s): I10 - Essential (primary) hypertension (9) Hypothyroidism Code(s): E03.9 - HYPOTHYROIDISM, UNSPECIFIED Assessment/Plan IMP: Do not clinically suspect PNA or respiratory tract infection CT findings consistent with recent extensive cardiac surgery (last wednesday) Would monitor off ABX: Noted that ID has been consulted, to discuss further. Daily Lasix O2 as needed BD TX Monitor off systemic steroids Encourage Incentive Spirometry Will follow Thank you. Dr Damon
--- NOTE | 2019-06-12 15:17 | ECHO ---
Name: JERICA MATAAREZXOCHITLLO Exam:Adult Echocardiogram Study Date: 06/12/2019 01:55 PM Age: 74 yrs Reason For Study: possible hemopericardium, post op CABG Height: 66 in Weight: 233 lb BSA: 2.1 m2 Procedure A complete two-dimensional transthoracic echocardiogram was performed (2D, M-mode, Doppler and color flow Doppler). Left Ventricle The left ventricle is mildly dilated. Left ventricular systolic function is mild to moderately reduce d. Ejection Fraction = 40-45%. There is mild to moderate global hypokinesis of the left ventricle. Right Ventricle There is a pacemaker lead in the right ventricle. Atria The left atrial size is normal. Right atrial size is normal. Mitral Valve There is a bioprosthetic mitral valve. The prosthetic mitral valve is well-seated. The prosthetic izabella ral valve appears to open well. There is no mitral regurgitation noted. Tricuspid Valve The tricuspid valve is not well visualized. Aortic Valve There is mild to moderate aortic sclerosis.;. No aortic regurgitation is present. Pulmonic Valve The pulmonic valve is not well visualized. Great Vessels The aortic root is normal size. Pericardium/Pleura There is no pericardial effusion. Interpretation Summary The left ventricle is mildly dilated. Left ventricular systolic function is mild to moderately reduced. Ejection Fraction = 40-45%. There is mild to moderate global hypokinesis of the left ventricle. There is a pacemaker lead in the right ventricle. The left atrial size is normal. Right atrial size is normal. There is a bioprosthetic mitral valve. The prosthetic mitral valve is well-seated. The prosthetic mitral valve appears to open well. There is no mitral regurgitation noted. There is mild to moderate aortic sclerosis.; No significant valvular regurgitations There is no pericardial effusion. Tristan Borrero MD 06/12/2019 03:16 PM
--- NOTE | 2019-06-12 16:05 | PN ---
Progress Note (short form) - Note Progress Note: ID consult dictated s/p recent CABG and bioMVR- last Wednesday- discharged home on Wednesday- afebrile feels well, cough is productive of white sputum and now that he is expectorating his choking sensation has resolved CT scan reviewed patient seen and examined no fevers to suggest pneumonia normal wbc suspect ct scan findings are c/w atelectasis and postop pleural effusions would agree with diuresis and incentive spirometry can d/c zosyn and observe Problem List - Problems (1) Atelectasis of both lungs Code(s): J98.11 - ATELECTASIS (2) Pleural effusion Code(s): J90 - PLEURAL EFFUSION, NOT ELSEWHERE CLASSIFIED (3) History of open heart surgery Code(s): Z98.890 - OTHER SPECIFIED POSTPROCEDURAL STATES
[2019-06-12] MEDS: FUROSEMIDE 100 MG/10 ML INJECTABLE VIAL IVPB SCH (17:57)
--- NOTE | 2019-06-12 20:42 | CONS ---
INFECTIOUS DISEASE CONSULTATION DATE OF CONSULTATION: 06/12/2019 This is a 74-year-old man who was admitted to [facility]. He is status post CABG with a single QUINTANILLA to the LAD and tissue mitral valve replacement on June 04. He was discharged home on Wednesday. Unfortunately, the pharmacy was not able to deliver his medications until today. This morning, he presented with complaints of cough. He had the thick white sputum that he reports got stuck in his throat. He was unable to expectorate, and he felt like he was choking. He has no fevers. He has no chills. He otherwise feels well. He has now been able to expectorate and is remarkably improved. He has no complaints whatsoever. He is bringing up clear white sputum. PAST MEDICAL HISTORY: Notable for atrial fibrillation, hypertension, hyperlipidemia, mitral insufficiency, COPD, sleep apnea, hypothyroidism. PAST SURGICAL HISTORY: He is status post CABG and permanent pacemaker. SOCIAL HISTORY: He is a former smoker. He quit in 1998. He currently does not drink. He lives with his spouse. 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 No history of any recent travel. ALLERGIES: He is allergic to METOPROLOL. MEDICATIONS: Include vitamin D, dutasteride, tamsulosin, furosemide, Singulair, Benicar, Spiriva, Coumadin, diltiazem, Synthroid, Advair, atorvastatin, Ellipta, Colace, Nitrostat, senna. FAMILY HISTORY: Notable for liver cirrhosis in his father, cervical cancer in his mother, liver cirrhosis in a brother, and a sister with mitral valve disease. REVIEW OF SYSTEMS: There are no fevers, chills. He reports that this cough started with white sputum and that he was not able to hand picker his medications. There is no hemoptysis. No chest pain. He feels well. PHYSICAL EXAMINATION: General: He is awake and alert. Vital Signs: He is afebrile. His pulse is 86. Blood pressure 108/75. Respiratory rate is 20. He is saturating 96%. HEENT: He is normocephalic. His eyes are anicteric. Neck: Supple. Lungs: Diminished breath sounds at the bases. Heart: Regular rate and rhythm. Skin: He has a midline sternal wound. He has multiple recent scars on his abdomen from the surgery. There is no evidence of any erythema to suggest cellulitis. Abdomen: Soft, nontender. Extremities: Without edema. LABORATORY DATA: White count is 9.9, hemoglobin 9.4, platelets are 179. His BUN is 17 and creatinine 1.2. His BNP was 1445. AST of 257, ALT of 211, alkaline phosphatase is 89. Chest CT was reviewed with the radiologist, consistent with bilateral pleural effusions with atelectasis at the bases. He also has cardiomegaly with a pleural effusion. In summary, this is a 74-year-old man status post recent CABG and bio-MVR, who is afebrile, no fevers to suggest pneumonia, normal white count. I suspect the CAT scan findings are consistent with atelectasis and postop pleural effusions. Would agree with diuresis and incentive spirometry. Can discontinue the Zosyn and observe. Further recommendations to follow. BENJA AMADOR M.D. DACIA/[id number]
[2019-06-12 22:17] LABS: URINE APPEARANCE CLEAR; URINE BILIRUBIN NEGATIVE (NEGATIVE); URINE COLOR YELLOW; URINE GLUCOSE (UA) NEGATIVE (NEGATIVE); URINE KETONE NEGATIVE (NEGATIVE); URINE LEUK ESTERASE NEGATIVE (NEGATIVE); URINE NITRITE NEGATIVE (NEGATIVE); URINE PROTEIN NEGATIVE (NEGATIVE); URINE UROBILINOGEN 0.2 mg/dL (0.2-1.0)
[2019-06-13 04:45] VITALS: BMI 37.1
[2019-06-13] MEDS: FUROSEMIDE 100 MG/10 ML INJECTABLE VIAL IVPB SCH ×2 (05:52→14:36)
[2019-06-13] MEDS: LEVOTHYROXINE NA 75 MCG TABLET (FP) PO SCH (06:00)
[2019-06-13] MEDS: guaiFENesin 200 MG/10 ML 10 ML UNIT-DOSE CUPS PO PRN (06:42)
[2019-06-13 07:53] LABS: BASO % 0.7 % (0-2.0); EOS % 2.5 % (0-4.5); HEMATOCRIT 29.8 % (35.4-49); HEMOGLOBIN 10.2 GM/dL (11.7-16.9); LYMPH % 15.2 % (8-40); MCH 29.8 pg (25.7-33.7); MCHC 34.1 g/dl (32.0-35.9); MEAN CELL VOLUME 87.4 fl (80-96); MONO % 8.9 % (3.8-10.2); NEUT % 72.7 % (42.8-82.8); PLATELET COUNT 246 K/MM3 (134-434); RBC 3.41 M/mm3 (4.00-5.60); RDW 14.8 % (11.9-15.9); WHITE BLOOD COUNT 10.8 K/mm3 (4.0-10.0)
[2019-06-13 08:03] LABS: BILIRUBIN,TOTAL 0.9 mg/dL (0.2-1); BLOOD UREA NITROGEN 14.4 mg/dL (7-18); CALCIUM 8.1 mg/dL (8.5-10.1); CREATININE 1.2 mg/dL (0.55-1.3); POTASSIUM 3.9 mmol/L (3.5-5.1); TOT PROT 6.5 g/dl (6.4-8.2)
[2019-06-13] MEDS ORDERED: ACETAMINOPHEN 325 MG TABLET (FP) PO PRN ×2 (08:22→10:37)
[2019-06-13] MEDS: ALBUTEROL SO4 0.083% IH SOL 2.5 MG/3 ML VIAL.NEB. NEB SCH ×4 (09:05→20:00)
[2019-06-13] MEDS: TIOTROPIUM BROMIDE 2.5 MCG (SPIRIVA) RESPIMAT INHALER IH SCH (10:34)
[2019-06-13] MEDS ORDERED: NITROGLYCERIN SUBLINGUAL 1/150 0.4 MG TAB SL PRN (10:37)
[2019-06-13] MEDS ORDERED: PATIENT'S OWN MEDICATION (NON-FORMULARY) (Dutasteride/Tamsulosin Hcl [Jalyn 0.5-0.4 Mg Cap PO SCH (10:45)
--- NOTE | 2019-06-13 11:06 | PN ---
Progress Note, Physician History of Present Illness: pt seen and examined today in nad. states he is feeling better. lying flat comfortably, no sob. - Current Medication List Current Medications: Active Medications Acetaminophen (Tylenol -) 650 mg PO Q6H PRN PRN Reason: HEADACHE Last Admin: 06/13/19 08:28 Dose: 650 mg Albuterol Sulfate (Ventolin 0.083% Nebulizer Soln -) 1 amp NEB RQID [facility] Last Admin: 06/13/19 09:05 Dose: 1 amp Atorvastatin Calcium (Lipitor -) 40 mg PO HS [facility] Budesonide/Formoterol Fumarate (Symbicort 80/4.5mcg -) 2 puff IH BID [facility] Cholecalciferol (Vitamin D3 -) 2,000 unit PO DAILY [facility] Diltiazem HCl (Cardizem Cd -) 180 mg PO DAILY [facility] Docusate Sodium (Colace -) 100 mg PO BID [facility] Furosemide (Lasix Injection -) 40 mg IVPB BID@0600,1400 [facility] Last Admin: 06/13/19 05:52 Dose: 40 mg Guaifenesin (Robitussin -) 10 ml PO Q6H PRN PRN Reason: COUGH Last Admin: 06/13/19 06:42 Dose: 10 ml Levothyroxine Sodium (Synthroid -) 75 mcg PO DAILY@0700 [facility] Last Admin: 06/13/19 06:00 Dose: 75 mcg Levothyroxine Sodium (Synthroid -) 75 mcg PO DAILY@0700 [facility] Montelukast Sodium (Singulair -) 10 mg PO HS [facility] Nitroglycerin (Nitrostat -) 0.4 mg SL Q5M PRN PRN Reason: FOR CHEST PAIN Non-Formulary Medication (Umeclidinium [place] [Incruse Ellipta]) 62.5 mcg IH DAILY [facility] Non-Formulary Medication (Dutasteride/Tamsulosin Hcl [Jazmin 0.5-0.4 Mg Capsule] ) 1 each PO PRN [facility] Senna (Senna -) 2 tab PO HS [facility] Tiotropium [place] (Spiriva Respimat) 2 puff IH DAILY [facility] Last Admin: 06/13/19 10:34 Dose: 2 puff Valsartan (Diovan -) 160 mg PO BID [facility] - Objective Vital Signs: Vital Signs Temperature 98.8 F 06/13/19 06:00 Pulse Rate 88 06/13/19 06:00 Respiratory Rate 20 06/13/19 06:00 Blood Pressure 100/67 06/13/19 06:00 O2 Sat by Pulse Oximetry (%) 98 06/12/19 21:00 Constitutional: Yes: No Distress, Calm Eyes: Yes: Conjunctiva Clear, EOM Intact HENT: Yes: Atraumatic, Normocephalic Neck: Yes: Supple, Trachea Midline Cardiovascular: Yes: Regular Rate and Rhythm, S1, S2. No: Bradycardia, Tachycardia, Pulse Irregular, Bruit, JVD, Gallop, Murmur, Rub, S3, S4, Varicosities Respiratory: Yes: Regular, Diminished. No: CTA Bilaterally, Rales, Rhonchi, SOB , Wheezes Gastrointestinal: Yes: Normal Bowel Sounds, Soft. No: Distention, Tenderness Musculoskeletal: Yes: WNL Edema: LLE: Trace, RLE: Trace Peripheral Pulses WNL: Yes Neurological: Yes: Alert, Oriented Psychiatric: Yes: Alert, Oriented Labs: CBC, BMP 06/13/19 07:15 06/13/19 07:15 INR, PTT INR 1.30 (0.83-1.09) H 06/12/19 02:12 - ....Imaging Chest X-ray: Report Reviewed, Image Reviewed EKG: Report Reviewed, Image Reviewed Other: Report Reviewed, Image Reviewed (tele-paced, pvcs, no sig arrhythmias) Assessment/Plan The patient is a 74-year-old man, we've a history of hypertension, hyperlipidemia, COPD, obstructive sleep apnea, hypothyroidism, permanent pacemaker, chronic atrial fibrillation, coronary artery disease, status post CABG with a single QUINTANILLA to the LAD and tissue MVR on 06/04/[address] Martinez now presenting with productive cough and shortness of breath. No chest pains. No palpitations. Chest CT showed pleural effusion, possible pna, possible pericardial effusion ECHO 06/12/19 showed no pericardial effusion, EF 40-45%, bio MVR normal function, no MR Likely residual pleural effusions post cardiac surgery No pericardial effusion seen on echo Ok to resume warfarin for goal INR 2-3 The patient is clinically and symptomatically better. Cont Lasix 40 mg IV twice daily and can likely be transitioned to po Lasix tomorrow Monitor I/Os, daily weights, bun/creat and electrolytes and replete as needed cont other current meds No events on tele, if no events in next 24 hours tele can be dcd Will follow
--- NOTE | 2019-06-13 13:00 | PN ---
Progress Note (short form) - Note Progress Note: Resting in NAD on RA. Some cough with beige sputum. No CP. Diuresing well. Intake & Output 06/10/19 06/11/19 06/12/19 06/13/19 23:59 23:59 23:59 23:59 Intake Total 250 14 Balance 250 14 Weight 230 lb 4.8 oz Last Vital Signs Temp Pulse Resp BP Pulse Ox 98 F 80 18 98/64 96 06/13/19 10:00 06/13/19 10:00 06/13/19 10:00 06/13/19 10:00 06/13/19 09:00 Active Medications Acetaminophen (Tylenol -) 650 mg PO Q6H PRN PRN Reason: HEADACHE Last Admin: 06/13/19 08:28 Dose: 650 mg Albuterol Sulfate (Ventolin 0.083% Nebulizer Soln -) 1 amp NEB RQID [facility] Last Admin: 06/13/19 09:05 Dose: 1 amp Atorvastatin Calcium (Lipitor -) 40 mg PO HS [facility] Budesonide/Formoterol Fumarate (Symbicort 80/4.5mcg -) 2 puff IH BID [facility] Cholecalciferol (Vitamin D3 -) 2,000 unit PO DAILY [facility] Diltiazem HCl (Cardizem Cd -) 180 mg PO DAILY [facility] Docusate Sodium (Colace -) 100 mg PO BID [facility] Furosemide (Lasix Injection -) 40 mg IVPB BID@0600,1400 [facility] Last Admin: 06/13/19 05:52 Dose: 40 mg Guaifenesin (Robitussin -) 10 ml PO Q6H PRN PRN Reason: COUGH Last Admin: 06/13/19 06:42 Dose: 10 ml Levothyroxine Sodium (Synthroid -) 75 mcg PO DAILY@0700 [facility] Montelukast Sodium (Singulair -) 10 mg PO HS [facility] Nitroglycerin (Nitrostat -) 0.4 mg SL Q5M PRN PRN Reason: FOR CHEST PAIN Non-Formulary Medication (Dutasteride/Tamsulosin Hcl [Jazmin 0.5-0.4 Mg Capsule] ) 1 each PO PRN PHI Senna (Senna -) 2 tab PO HS [facility] Tiotropium [place] (Spiriva Respimat) 2 puff IH DAILY [facility] Last Admin: 06/13/19 10:34 Dose: 2 puff Valsartan (Diovan -) 160 mg PO BID [facility] Constitutional: Yes: No Distress, Obese Eyes: Yes: Conjunctiva Clear, EOM Intact HENT: Yes: Atraumatic Neck: Yes: Supple, Trachea Midline Cardiovascular: Yes: Regular Rate and Rhythm Respiratory: Yes: Cough, Diminished, Poor Air Entry, Rhonchi. No: Accessory Muscle Use, Rales, SOB, SOB on Exertion, Stridor, Tachypnea, Wheezes ...Inspection: Yes: Other (multiple healing surgical scars) ...Clubbing: No Gastrointestinal: Yes: Normal Bowel Sounds, Soft, Abdomen, Obese Renal/: Yes: WNL Musculoskeletal: Yes: WNL Extremities: Yes: WNL Edema: No Peripheral Pulses WNL: Yes Integumentary: Yes: WNL, Other (multiple areas of post op changes ) Neurological: Yes: WNL, Alert, Oriented ...Motor Strength: WNL Psychiatric: Yes: WNL, Alert, Oriented Labs: Laboratory Results - last 24 hr 06/12/19 06/12/19 06/13/19 14:41 20:34 07:15 WBC 10.8 H RBC 3.41 L Hgb 10.2 L Hct 29.8 L MCV 87.4 MCH 29.8 MCHC 34.1 RDW 14.8 Plt Count 246 D MPV 8.0 Absolute Neuts (auto) 7.9 Neutrophils % 72.7 Lymphocytes % 15.2 Monocytes % 8.9 Eosinophils % 2.5 Basophils % 0.7 Nucleated RBC % 1 H Sodium Potassium Chloride Carbon Dioxide Anion Gap BUN Creatinine Est GFR (CKD-EPI)AfAm Est GFR (CKD-EPI)NonAf Random Glucose Calcium Total Bilirubin AST ALT Alkaline Phosphatase Creatine Kinase 133 CK-MB (CK-2) 1.2 Troponin I 0.12 H Total Protein Albumin Urine Color Yellow Urine Appearance Clear Urine pH 7.0 Ur Specific [place] 1.008 L Urine Protein Negative Urine Glucose (UA) Negative Urine Ketones Negative Urine Blood Negative Urine Nitrite Negative Urine Bilirubin Negative Urine Urobilinogen 0.2 Ur Leukocyte Esterase Negative 06/13/19 07:15 WBC RBC Hgb Hct MCV MCH MCHC RDW Plt Count MPV Absolute Neuts (auto) Neutrophils % Lymphocytes % Monocytes % Eosinophils % Basophils % Nucleated RBC % Sodium 139 Potassium 3.9 Chloride 104 Carbon Dioxide 25 Anion Gap 11 BUN 14.4 Creatinine 1.2 Est GFR (CKD-EPI)AfAm 68.15 Est GFR (CKD-EPI)NonAf 58.80 Random Glucose 116 H Calcium 8.1 L Total Bilirubin 0.9 AST 143 H ALT 188 H Alkaline Phosphatase 94 Creatine Kinase CK-MB (CK-2) Troponin I Total Protein 6.5 Albumin 3.0 L Urine Color Urine Appearance Urine pH Ur Specific [place] Urine Protein Urine Glucose (UA) Urine Ketones Urine Blood Urine Nitrite Urine Bilirubin Urine Urobilinogen Ur Leukocyte Esterase Problem List - Problems (1) Atelectasis of both lungs Code(s): J98.11 - ATELECTASIS (2) COPD (chronic obstructive pulmonary disease) Code(s): J44.9 - CHRONIC OBSTRUCTIVE PULMONARY DISEASE, UNSPECIFIED Qualifiers: COPD type: unspecified COPD Qualified Code(s): J44.9 - Chronic obstructive pulmonary disease, unspecified (3) History of open heart surgery Code(s): Z98.890 - OTHER SPECIFIED POSTPROCEDURAL STATES (4) Pleural effusion Code(s): J90 - PLEURAL EFFUSION, NOT ELSEWHERE CLASSIFIED (5) BPH (benign prostatic hyperplasia) Code(s): N40.0 - BENIGN PROSTATIC HYPERPLASIA WITHOUT LOWER URINRY TRACT SYMP (6) Cough Code(s): R05 - COUGH (7) HLD (hyperlipidemia) Code(s): E78.5 - HYPERLIPIDEMIA, UNSPECIFIED (8) Hypertension Code(s): I10 - ESSENTIAL (PRIMARY) HYPERTENSION Qualifiers: Hypertension type: essential hypertension Qualified Code(s): I10 - Essential (primary) hypertension (9) Hypothyroidism Code(s): E03.9 - HYPOTHYROIDISM, UNSPECIFIED Assessment/Plan IMP: Do not clinically suspect PNA or respiratory tract infection CT findings consistent with recent extensive cardiac surgery (last wednesday) Would continue to monitor off ABX: Noted that ID has been consulted, to discuss further. Lasix BID O2 as needed BD TX Monitor off systemic steroids Encourage Incentive Spirometry Dr Damon Problem List - Problems (1) Atelectasis of both lungs Code(s): J98.11 - ATELECTASIS (2) COPD (chronic obstructive pulmonary disease) Code(s): J44.9 - CHRONIC OBSTRUCTIVE PULMONARY DISEASE, UNSPECIFIED Qualifiers: COPD type: unspecified COPD Qualified Code(s): J44.9 - Chronic obstructive pulmonary disease, unspecified (3) History of open heart surgery Code(s): Z98.890 - OTHER SPECIFIED POSTPROCEDURAL STATES (4) Pleural effusion Code(s): J90 - PLEURAL EFFUSION, NOT ELSEWHERE CLASSIFIED (5) BPH (benign prostatic hyperplasia) Code(s): N40.0 - BENIGN PROSTATIC HYPERPLASIA WITHOUT LOWER URINRY TRACT SYMP (6) Cough Code(s): R05 - COUGH (7) HLD (hyperlipidemia) Code(s): E78.5 - HYPERLIPIDEMIA, UNSPECIFIED (8) Hypertension Code(s): I10 - ESSENTIAL (PRIMARY) HYPERTENSION Qualifiers: Hypertension type: essential hypertension Qualified Code(s): I10 - Essential (primary) hypertension (9) Hypothyroidism Code(s): E03.9 - HYPOTHYROIDISM, UNSPECIFIED
--- NOTE | 2019-06-13 15:38 | PN ---
Progress Note (short form) - Note Progress Note: patient seen and examined sitting in chair Comfortable Had headache earlier today----resolved with Tylenol denies chest pain Breathing better All consults noted Off antibiotics Vital Signs Temp 98.8 F 06/13/19 14:00 Pulse 80 06/13/19 14:00 Resp 20 06/13/19 14:00 BP 104/60 06/13/19 14:00 Pulse Ox 96 06/13/19 09:00 Intake & Output 06/12/19 06/13/19 06/13/19 23:59 11:59 23:59 Intake Total 250 14 Balance 250 14 Weight 230 lb 4.8 oz Intake: IV 10 14 saline lock 10 14 Oral 240 Other: Voiding Method Toilet Toilet # Unmeasured Voids Void 1 Bowel Movement No Height 5 ft 6 in Body Mass Index (BMI) 37.1 Weight Measurement Method Standing Scale Active Medications Acetaminophen (Tylenol -) 650 mg PO Q6H PRN PRN Reason: HEADACHE Last Admin: 06/13/19 08:28 Dose: 650 mg Albuterol Sulfate (Ventolin 0.083% Nebulizer Soln -) 1 amp NEB RQID PHI Last Admin: 06/13/19 09:05 Dose: 1 amp Atorvastatin Calcium (Lipitor -) 40 mg PO HS [facility] Budesonide/Formoterol Fumarate (Symbicort 80/4.5mcg -) 2 puff IH BID [facility] Cholecalciferol (Vitamin D3 -) 2,000 unit PO DAILY [facility] Diltiazem HCl (Cardizem Cd -) 180 mg PO DAILY [facility] Docusate Sodium (Colace -) 100 mg PO BID [facility] Furosemide (Lasix Injection -) 40 mg IVPB BID@0600,1400 [facility] Last Admin: 06/13/19 14:36 Dose: 40 mg Guaifenesin (Robitussin -) 10 ml PO Q6H PRN PRN Reason: COUGH Last Admin: 06/13/19 06:42 Dose: 10 ml Levothyroxine Sodium (Synthroid -) 75 mcg PO DAILY@0700 [facility] Montelukast Sodium (Singulair -) 10 mg PO HS [facility] Nitroglycerin (Nitrostat -) 0.4 mg SL Q5M PRN PRN Reason: FOR CHEST PAIN Non-Formulary Medication (Dutasteride/Tamsulosin Hcl [Jazmin 0.5-0.4 Mg Capsule] ) 1 each PO PRN [facility] Senna (Senna -) 2 tab PO HS [facility] Tiotropium [place] (Spiriva Respimat) 2 puff IH DAILY [facility] Last Admin: 06/13/19 10:34 Dose: 2 puff Valsartan (Diovan -) 160 mg PO BID [facility] CBC, BMP 06/13/19 07:15 06/13/19 07:15 Echocardiogram--- no hemopericardium physical exam Comfortable Sitting in chair Heart sounds--irregular Healing scars--chest Lungs--- diminished at bases Abdominal-soft Extremities-no edema Neuro--alert and awake Assessment and plan Recent CABG Pleural effusion continue IV Lasix and restart Coumadin Monitor off antibiotics We will follow Discussed in detail with patient and patient's Monitor INR discussed with nursing staff also Problem List - Problems (1) COPD (chronic obstructive pulmonary disease) Code(s): J44.9 - CHRONIC OBSTRUCTIVE PULMONARY DISEASE, UNSPECIFIED Qualifiers: COPD type: unspecified COPD Qualified Code(s): J44.9 - Chronic obstructive pulmonary disease, unspecified (2) Hemopericardium Code(s): I31.2 - HEMOPERICARDIUM, NOT ELSEWHERE CLASSIFIED (3) History of open heart surgery Code(s): Z98.890 - OTHER SPECIFIED POSTPROCEDURAL STATES (4) Pleural effusion Code(s): J90 - PLEURAL EFFUSION, NOT ELSEWHERE CLASSIFIED
[2019-06-13] MEDS ORDERED: WARFARIN NA 2 MG TABLET (UD) PO ONE (18:00)
[2019-06-13] MEDS: VALSARTAN 160 MG TABLET (UD) PO SCH (21:39)
[2019-06-13] MEDS: DOCUSATE SODIUM 100 MG CAPSULE (FP) PO SCH (21:39)
[2019-06-13] MEDS: BUDESONIDE/FORMETEROL FUMARATE 80/4.5 mcg INHALER IH SCH (21:40)
[2019-06-13] MEDS ORDERED: WARFARIN NA 5 MG TABLET (UD) PO SCH (22:00)
[2019-06-13] MEDS ORDERED: SENNOSIDES 8.6MG TABLET (FP) PO SCH (22:00)
[2019-06-13] MEDS ORDERED: MONTELUKAST NA 10 MG TABLET PO SCH (22:00)
[2019-06-14] MEDS: FUROSEMIDE 100 MG/10 ML INJECTABLE VIAL IVPB SCH ×2 (06:28→14:08)
[2019-06-14] MEDS ORDERED: LEVOTHYROXINE NA 75 MCG TABLET (FP) PO SCH (07:00)
[2019-06-14] MEDS: ALBUTEROL SO4 0.083% IH SOL 2.5 MG/3 ML VIAL.NEB. NEB SCH ×3 (08:19→17:49)
[2019-06-14 08:21] LABS: BASO % 0.7 % (0-2.0); EOS % 2.8 % (0-4.5); HEMATOCRIT 31.1 % (35.4-49); HEMOGLOBIN 10.4 GM/dL (11.7-16.9); LYMPH % 19.6 % (8-40); MCH 29.5 pg (25.7-33.7); MCHC 33.5 g/dl (32.0-35.9); MEAN CELL VOLUME 88.1 fl (80-96); MEAN PLT VOLUME 7.7 fl (7.5-11.1); MONO % 8.6 % (3.8-10.2); NEUT % 68.3 % (42.8-82.8); PLATELET COUNT 289 K/MM3 (134-434); RBC 3.53 M/mm3 (4.00-5.60); RDW 15.5 % (11.9-15.9); WHITE BLOOD COUNT 10.1 K/mm3 (4.0-10.0)
[2019-06-14 08:46] LABS: INR 1.28 (0.83-1.09); PROTHROMBIN TIME (PATIENT) 15.2 SEC (9.7-13.0)
[2019-06-14 08:50] VITALS: PULSE 85
[2019-06-14 08:58] LABS: ALBUMIN 3.1 g/dl (3.4-5.0); BILIRUBIN,TOTAL 0.8 mg/dL (0.2-1); BLOOD UREA NITROGEN 10.5 mg/dL (7-18); CALCIUM 8.3 mg/dL (8.5-10.1); CREATININE 1.2 mg/dL (0.55-1.3); TOT PROT 6.5 g/dl (6.4-8.2)
[2019-06-14] MEDS ORDERED: PT OWN MED DRAWER 7, Y5N ONE (09:23)
[2019-06-14] MEDS: TIOTROPIUM BROMIDE 2.5 MCG (SPIRIVA) RESPIMAT INHALER IH SCH (09:29)
[2019-06-14] MEDS: DOCUSATE SODIUM 100 MG CAPSULE (FP) PO SCH (09:29)
[2019-06-14] MEDS: VALSARTAN 160 MG TABLET (UD) PO SCH (09:29)
[2019-06-14] MEDS: BUDESONIDE/FORMETEROL FUMARATE 80/4.5 mcg INHALER IH SCH (09:29)
[2019-06-14] MEDS ORDERED: FUROSEMIDE 40 MG TABLET (FP) PO SCH (10:00)
[2019-06-14] MEDS ORDERED: ASPIRIN 81 MG CHEWABLE TABLETS PO SCH (10:00)
[2019-06-14] MEDS ORDERED: CHOLECALCIFEROL (VIT D3) 1,000 UNIT (25 MCG) TABLET PO SCH (10:00)
--- NOTE | 2019-06-14 11:41 | PN ---
Progress Note (short form) - Note Progress Note: Resting in NAD on RA. Less cough. No CP. Diuresing well. Intake & Output 06/11/19 06/12/19 06/13/19 06/14/19 23:59 23:59 23:59 23:59 Intake Total 250 389 300 Output Total 500 Balance 250 -111 300 Weight 230 lb 4.8 oz Last Vital Signs Temp Pulse Resp BP Pulse Ox 98.3 F 85 20 96/71 96 06/14/19 08:00 06/14/19 08:00 06/14/19 09:00 06/14/19 08:00 06/14/19 09:00 Active Medications Acetaminophen (Tylenol -) 650 mg PO Q6H PRN PRN Reason: HEADACHE Last Admin: 06/13/19 08:28 Dose: 650 mg Albuterol Sulfate (Ventolin 0.083% Nebulizer Soln -) 1 amp NEB RQID [facility] Last Admin: 06/14/19 08:19 Dose: 1 amp Atorvastatin Calcium (Lipitor -) 40 mg PO [facility] Budesonide/Formoterol Fumarate (Symbicort 80/4.5mcg -) 2 puff IH BID [facility] Last Admin: 06/14/19 09:29 Dose: 2 puff Cholecalciferol (Vitamin D3 -) 2,000 unit PO DAILY [facility] Last Admin: 06/14/19 09:29 Dose: 2,000 unit Diltiazem HCl (Cardizem Cd -) 180 mg PO DAILY [facility] Last Admin: 06/14/19 09:29 Dose: 180 mg Docusate Sodium (Colace -) 100 mg PO BID [facility] Last Admin: 06/14/19 09:29 Dose: 100 mg Furosemide (Lasix Injection -) 40 mg IVPB BID@0600,1400 [facility] Last Admin: 06/14/19 06:28 Dose: 40 mg Guaifenesin (Robitussin -) 10 ml PO Q6H PRN PRN Reason: COUGH Last Admin: 06/13/19 06:42 Dose: 10 ml Levothyroxine Sodium (Synthroid -) 75 mcg PO DAILY@0700 [facility] Last Admin: 06/14/19 06:29 Dose: 75 mcg Montelukast Sodium (Singulair -) 10 mg PO [facility] Last Admin: 06/13/19 21:39 Dose: 10 mg Nitroglycerin (Nitrostat -) 0.4 mg SL Q5M PRN PRN Reason: FOR CHEST PAIN Non-Formulary Medication (Dutasteride/Tamsulosin Hcl [Jazmin 0.5-0.4 Mg Capsule] ) 1 each PO PRN [facility] Senna (Senna -) 2 tab PO HS [facility] Last Admin: 06/13/19 21:39 Dose: 2 tab Tiotropium [place] (Spiriva Respimat) 2 puff IH DAILY [facility] Last Admin: 06/14/19 09:29 Dose: 2 puff Valsartan (Diovan -) 160 mg PO BID [facility] Last Admin: 06/14/19 09:29 Dose: 160 mg Constitutional: Yes: No Distress, Obese Eyes: Yes: Conjunctiva Clear, EOM Intact HENT: Yes: Atraumatic Neck: Yes: Supple, Trachea Midline Cardiovascular: Yes: Regular Rate and Rhythm Respiratory: Yes: Cough, Diminished, Poor Air Entry, Rhonchi. No: Accessory Muscle Use, Rales, SOB, SOB on Exertion, Stridor, Tachypnea, Wheezes ...Inspection: Yes: Other (multiple healing surgical scars) ...Clubbing: No Gastrointestinal: Yes: Normal Bowel Sounds, Soft, Abdomen, Obese Renal/: Yes: WNL Musculoskeletal: Yes: WNL Extremities: Yes: WNL Edema: No Peripheral Pulses WNL: Yes Integumentary: Yes: WNL, Other (multiple areas of post op changes ) Neurological: Yes: WNL, Alert, Oriented ...Motor Strength: WNL Psychiatric: Yes: WNL, Alert, Oriented Labs: Laboratory Results - last 24 hr 06/14/19 06/14/19 06/14/19 06:41 06:41 06:41 WBC 10.1 H RBC 3.53 L Hgb 10.4 L Hct 31.1 L MCV 88.1 MCH 29.5 MCHC 33.5 RDW 15.5 Plt Count 289 MPV 7.7 Absolute Neuts (auto) 6.9 Neutrophils % 68.3 Lymphocytes % 19.6 D Monocytes % 8.6 Eosinophils % 2.8 Basophils % 0.7 Nucleated RBC % 0 PT with INR 15.20 H INR 1.28 H Sodium 138 Potassium 4.0 Chloride 102 Carbon Dioxide 26 Anion Gap 11 BUN 10.5 Creatinine 1.2 Est GFR (CKD-EPI)AfAm 68.15 Est GFR (CKD-EPI)NonAf 58.80 Random Glucose 103 Calcium 8.3 L Total Bilirubin 0.8 AST 112 H ALT 162 H Alkaline Phosphatase 91 Total Protein 6.5 Albumin 3.1 L Problem List - Problems (1) Atelectasis of both lungs Code(s): J98.11 - ATELECTASIS (2) COPD (chronic obstructive pulmonary disease) Code(s): J44.9 - CHRONIC OBSTRUCTIVE PULMONARY DISEASE, UNSPECIFIED Qualifiers: COPD type: unspecified COPD Qualified Code(s): J44.9 - Chronic obstructive pulmonary disease, unspecified (3) History of open heart surgery Code(s): Z98.890 - OTHER SPECIFIED POSTPROCEDURAL STATES (4) Pleural effusion Code(s): J90 - PLEURAL EFFUSION, NOT ELSEWHERE CLASSIFIED (5) BPH (benign prostatic hyperplasia) Code(s): N40.0 - BENIGN PROSTATIC HYPERPLASIA WITHOUT LOWER URINRY TRACT SYMP (6) Cough Code(s): R05 - COUGH (7) HLD (hyperlipidemia) Code(s): E78.5 - HYPERLIPIDEMIA, UNSPECIFIED (8) Hypertension Code(s): I10 - ESSENTIAL (PRIMARY) HYPERTENSION Qualifiers: Hypertension type: essential hypertension Qualified Code(s): I10 - Essential (primary) hypertension (9) Hypothyroidism Code(s): E03.9 - HYPOTHYROIDISM, UNSPECIFIED Assessment/Plan IMP: Do not clinically suspect PNA or respiratory tract infection CT findings consistent with recent extensive cardiac surgery (last wednesday) Would continue to monitor off ABX Lasix BID O2 as needed BD TX Monitor off systemic steroids Encourage Incentive Spirometry There is no Pulmonary contraindication for DC planning Dr Damon Problem List - Problems (1) Atelectasis of both lungs Code(s): J98.11 - ATELECTASIS (2) COPD (chronic obstructive pulmonary disease) Code(s): J44.9 - CHRONIC OBSTRUCTIVE PULMONARY DISEASE, UNSPECIFIED Qualifiers: COPD type: unspecified COPD Qualified Code(s): J44.9 - Chronic obstructive pulmonary disease, unspecified (3) History of open heart surgery Code(s): Z98.890 - OTHER SPECIFIED POSTPROCEDURAL STATES (4) Pleural effusion Code(s): J90 - PLEURAL EFFUSION, NOT ELSEWHERE CLASSIFIED (5) BPH (benign prostatic hyperplasia) Code(s): N40.0 - BENIGN PROSTATIC HYPERPLASIA WITHOUT LOWER URINRY TRACT SYMP (6) Cough Code(s): R05 - COUGH (7) HLD (hyperlipidemia) Code(s): E78.5 - HYPERLIPIDEMIA, UNSPECIFIED (8) Hypertension Code(s): I10 - ESSENTIAL (PRIMARY) HYPERTENSION Qualifiers: Hypertension type: essential hypertension Qualified Code(s): I10 - Essential (primary) hypertension (9) Hypothyroidism Code(s): E03.9 - HYPOTHYROIDISM, UNSPECIFIED
[2019-06-14 12:29] LABS: ANISOCYTOSIS 1+; MACROCYTOSIS 0; PLATELET ESTIMATE NORMAL
--- NOTE | 2019-06-14 13:25 | PN ---
Progress Note, Physician Chief Complaint: Shortness of breath History of Present Illness: The patient is a 74-year-old man, we've a history of hypertension, hyperlipidemia, COPD, obstructive sleep apnea, hypothyroidism, permanent pacemaker, chronic atrial fibrillation, coronary artery disease, status post CABG with a single QUINTANILLA to the LAD and tissue MVR on 06/04/[address] Martinez now presenting with productive cough and shortness of breath. No chest pains. No palpitations. - Current Medication List Current Medications: Active Medications Acetaminophen (Tylenol -) 650 mg PO Q6H PRN PRN Reason: HEADACHE Last Admin: 06/13/19 08:28 Dose: 650 mg Albuterol Sulfate (Ventolin 0.083% Nebulizer Soln -) 1 amp NEB RQID [facility] Last Admin: 06/14/19 12:30 Dose: 1 amp Atorvastatin Calcium (Lipitor -) 40 mg PO [facility] Budesonide/Formoterol Fumarate (Symbicort 80/4.5mcg -) 2 puff IH BID [facility] Last Admin: 06/14/19 09:29 Dose: 2 puff Cholecalciferol (Vitamin D3 -) 2,000 unit PO DAILY [facility] Last Admin: 06/14/19 09:29 Dose: 2,000 unit Diltiazem HCl (Cardizem Cd -) 180 mg PO DAILY [facility] Last Admin: 06/14/19 09:29 Dose: 180 mg Docusate Sodium (Colace -) 100 mg PO BID [facility] Last Admin: 06/14/19 09:29 Dose: 100 mg Furosemide (Lasix Injection -) 40 mg IVPB BID@0600,1400 [facility] Last Admin: 06/14/19 06:28 Dose: 40 mg Guaifenesin (Robitussin -) 10 ml PO Q6H PRN PRN Reason: COUGH Last Admin: 06/13/19 06:42 Dose: 10 ml Levothyroxine Sodium (Synthroid -) 75 mcg PO DAILY@0700 [facility] Last Admin: 06/14/19 06:29 Dose: 75 mcg Montelukast Sodium (Singulair -) 10 mg PO HS [facility] Last Admin: 06/13/19 21:39 Dose: 10 mg Nitroglycerin (Nitrostat -) 0.4 mg SL Q5M PRN PRN Reason: FOR CHEST PAIN Non-Formulary Medication (Dutasteride/Tamsulosin Hcl [Jazmin 0.5-0.4 Mg Capsule] ) 1 each PO PRN [facility] Senna (Senna -) 2 tab PO HS [facility] Last Admin: 06/13/19 21:39 Dose: 2 tab Tiotropium [place] (Spiriva Respimat) 2 puff IH DAILY [facility] Last Admin: 06/14/19 09:29 Dose: 2 puff Valsartan (Diovan -) 160 mg PO BID [facility] Last Admin: 06/14/19 09:29 Dose: 160 mg - Objective Vital Signs: Vital Signs Temperature 98.3 F 06/14/19 08:00 Pulse Rate 85 06/14/19 08:00 Respiratory Rate 20 06/14/19 09:00 Blood Pressure 96/71 06/14/19 08:00 O2 Sat by Pulse Oximetry (%) 96 06/14/19 09:00 Constitutional: Yes: Well Nourished, No Distress, Calm Eyes: Yes: WNL, Conjunctiva Clear, EOM Intact HENT: Yes: WNL, Atraumatic, Normocephalic Neck: Yes: WNL, Supple, Trachea Midline Cardiovascular: Yes: WNL, Regular Rate and Rhythm Respiratory: Yes: WNL, Regular, CTA Bilaterally Gastrointestinal: Yes: WNL, Normal Bowel Sounds, Soft ...Rectal Exam: Yes: Deferred Genitourinary: Yes: WNL Musculoskeletal: Yes: WNL Extremities: Yes: WNL Edema: No Peripheral Pulses WNL: Yes Peripheral Pulses: Left Radial: 2+, Right Radial: 2+, Left Doralis Pedis: 2+, Right Dorsalis Pedis: 2+, Left Femoral: 2+, Right Femoral: 2+ Neurological: Yes: WNL, Alert, Oriented ...Motor Strength: WNL Psychiatric: Yes: WNL Labs: CBC, BMP 06/14/19 06:41 06/14/19 06:41 INR, PTT INR 1.28 (0.83-1.09) H 06/14/19 06:41 Assessment/Plan The patient is a 74-year-old man, we've a history of hypertension, hyperlipidemia, COPD, obstructive sleep apnea, hypothyroidism, permanent pacemaker, chronic atrial fibrillation, coronary artery disease, status post CABG with a single QUINTANILLA to the LAD and tissue MVR on 06/04/[address] Martinez now presenting with productive cough and shortness of breath. No chest pains. No palpitations. The patient is clinically and symptomatically improved. He claims to be breathing on his baseline. Lung exam is normal. Edema resolved. Please switch to oral Lasix 40 mg by mouth twice daily. Continue the other medications as currently. No need for further cardiac workup at this point. Please arrange for an outpatient follow-up visit with next week. Please do not hesitate to call us PRN.
[2019-06-14 15:29] VITALS: BP 109/62; TEMP 98.6
--- NOTE | 2019-06-14 17:01 | DS ---
Physical Examination Vital Signs: Vital Signs Temperature 98.6 F 06/14/19 14:00 Pulse Rate 85 06/14/19 14:00 Respiratory Rate 20 06/14/19 14:00 Blood Pressure 109/62 06/14/19 14:00 O2 Sat by Pulse Oximetry (%) 96 06/14/19 09:00 Findings/Remarks: dictated Constitutional: Yes: No Distress, Calm Neck: Yes: Supple Cardiovascular: Yes: Regular Rate and Rhythm Respiratory: Yes: CTA Bilaterally Gastrointestinal: Yes: Soft Labs: CBC, BMP 06/14/19 06:41 06/14/19 06:41 Discharge Summary Reason For Visit: HISTORY OF OPEN HEART SURGERY/RESPIRATORY DISTRESS Current Active Problems Atelectasis of both lungs (Acute) COPD (chronic obstructive pulmonary disease) (Acute) Hemopericardium (Acute) History of open heart surgery (Acute) Pleural effusion (Acute) Respiratory distress (Acute) - Instructions - Home Medications Comprehensive Discharge Medication List: Ambulatory Orders Cholecalciferol (Vitamin D3) [Vitamin D3] 2,000 unit PO DAILY 03/06/15 Dutasteride/Tamsulosin HCl [Jazmin 0.5-0.4 mg Capsule] 1 each PO PRN 03/06/15 Montelukast Na [Singulair -] 10 mg PO HS 03/06/15 Olmesartan [place] [Benicar -] 20 mg PO BID 03/06/15 Tiotropium [place] [Spiriva] 1 inh PO DAILY PRN 03/06/15 Albuterol 0.083% Nebulizer [place] [Ventolin 0.083% Nebulizer Soln -] 1 neb NEB Q6H 01/05/17 Diltiazem Cd [Cardizem Cd -] 180 mg PO DAILY 01/05/17 Levothyroxine [Synthroid -] 75 mcg PO DAILY 01/05/17 Salmeterol/Fluticasone [Advair 250Mcg/50Mcg -] 1 inh PO BID 01/05/17 Atorvastatin Calcium 40 mg PO DAILY 03/04/19 Umeclidinium [place] [Incruse Ellipta] 62.5 mcg IH [id number] 03/04/19 Docusate Sodium [Colace -] 100 mg PO BID capsule 03/06/19 Nitroglycerin Sublingual [Nitrostat -] 0.4 mg SL Q5M PRN tab 03/06/19 Sennosides [Senna -] 2 tab PO HS tablet 03/06/19 Acetaminophen [Tylenol] 650 mg PO QID PRN 06/12/19 Aspirin [ASA -] 81 mg PO DAILY 06/12/19 Warfarin Sodium [Coumadin] 2 mg PO HS 06/12/19 Furosemide [Lasix -] 40 mg PO BID #0 tab 06/14/19 Guaifenesin [Robitussin -] 10 ml PO Q6H PRN cup 06/14/19
--- NOTE | 2019-06-14 18:16 | DS ---
DATE OF ADMISSION: 06/12/2019 DATE OF DICTATION: 06/14/2019 HISTORY: This patient is a 74-year-old gentleman with an extensive past medical history including a recent CABG at [facility] as well as a history of COPD, hypertension, hyperlipidemia, a pacemaker and recent repair of a leaky valve. He was admitted to the hospital secondary to cough and shortness of breath. The patient was admitted to the telemetry unit for workup for a pleural effusion. There was also a question of pericardial hemoperitoneum. The patient had an echo done which did not show any hemoperitoneum and Coumadin was renewed. The patient is overall doing well now. PHYSICAL EXAMINATION: GENERAL: The patient is being seen by me today. He is awake and comfortable, sitting in his chair. VITALS: Stable. LUNGS: Clear. HEART: Sounds are regular. ABDOMEN: Soft. EXTREMITIES: No edema. LABS: Today, labs are significant for a subtherapeutic INR at 1.28 as well as mild elevation of his AST and ALT. The patient was also seen by infectious disease, pulmonology and cardiology during his stay. ASSESSMENT/PLAN: The patient is now stable to go back home with p.o. Lasix. He was instructed to follow up in the office in two days for recheck of his INR. The patient typically takes Coumadin 2 mg but I will discharge him on 4 mg with close monitoring of his INR. The above was discussed with the patient and his and they are in agreement. DISCHARGE DIAGNOSES: 1. Recent coronary artery bypass grafting and valve repair. 2. Chronic obstructive pulmonary disease. 3. Congestive heart failure. 4. Pleural effusion. The patient's medication list was also reconciled. GURU ALSTON M.D. [id number]
[2019-06-14] MEDS ORDERED: ATORVASTATIN CA 40 MG TABLET (FP) PO SCH (22:00)
== END 2019-06-14 18:21 | disposition home health service (06) | DRG 206 ==
LOC: JER 00:27 → JERBED 03:11 → J4W 18:48
PROVIDERS: ADMIT Internal Medicine; ATTEND Internal Medicine
DX: J95.89 Other postprocedural complications and disorders of respiratory system, not elsewhere classified (principal); J90 Pleural effusion, not elsewhere classified; I31.2 Hemopericardium, not elsewhere classified; I31.3 Pericardial effusion (noninflammatory); J98.11 Atelectasis; Y83.8 Other surgical procedures as the cause of abnormal reaction of the patient, or of later complication, without mention of misadventure at the time of the procedure; J44.9 Chronic obstructive pulmonary disease, unspecified; E03.9 Hypothyroidism, unspecified; Z95.1 Presence of aortocoronary bypass graft; E66.9 Obesity, unspecified; I10 Essential (primary) hypertension; E78.5 Hyperlipidemia, unspecified; Z79.01 Long term (current) use of anticoagulants; Z87.891 Personal history of nicotine dependence; I25.10 Atherosclerotic heart disease of native coronary artery without angina pectoris; Z95.0 Presence of cardiac pacemaker; I48.2 Chronic atrial fibrillation; Z68.37 Body mass index [BMI] 37.0-37.9, adult; N40.0 Benign prostatic hyperplasia without lower urinary tract symptoms
CPT/HCPCS: 36415; 71250-TC; 80053; 81003; 82550; 82553; 83880; 84484; 85025; 85610; 85730; 93005; 93010; 93306-TC; 94640; 99284-25

== ENCOUNTER 2020-06-09 20:40 | Emergency (ER) | payer MEDICARE, OTHER ==
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
[2020-06-09 20:52] VITALS: BMI 38.2
[2020-06-09] MEDS ORDERED: ACETAMINOPHEN 1000 MG/100 ML VIAL (NON FORMULARY) IVPB ONE (21:12)
[2020-06-09] MEDS ORDERED: ACETAMINOPHEN INJECTION 100 ML IVPB ONE (21:28)
[2020-06-09 21:54] LABS: BASO % 0.8 % (0-2.0); EOS % 4.2 % (0-4.5); HEMATOCRIT 40.2 % (35.4-49); HEMOGLOBIN 13.4 GM/dL (11.7-16.9); LYMPH % 22.8 % (8-40); MCHC 33.3 g/dl (32.0-35.9); MEAN CELL VOLUME 89.9 fl (80-96); MEAN PLT VOLUME 8.3 fl (7.5-11.1); MONO % 12.5 % (3.8-10.2); NEUT % 59.7 % (42.8-82.8); PLATELET COUNT 177 K/MM3 (134-434); RBC 4.47 M/mm3 (4.00-5.60); RDW 15.3 % (11.9-15.9); WHITE BLOOD COUNT 5.4 K/mm3 (4.0-10.0)
[2020-06-09 22:02] LABS: INR 1.52 (0.83-1.09)
[2020-06-09 22:05] LABS: ACTIVATED PTT 30.3 SECONDS (25.2-36.5)
[2020-06-09 22:15] LABS: ALBUMIN 3.6 g/dl (3.4-5.0); BILIRUBIN,TOTAL 0.2 mg/dL (0.2-1); BLOOD UREA NITROGEN 18.9 mg/dL (7-18); CALCIUM 8.6 mg/dL (8.5-10.1); CREATININE 1.4 mg/dL (0.55-1.3); POTASSIUM 3.9 mmol/L (3.5-5.1); TOT PROT 6.9 g/dl (6.4-8.2)
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
[2020-06-10 01:23] VITALS: BP 159/84; PULSE 62; TEMP 98.3
--- NOTE | 2020-06-10 09:56 | EKG ---
Test Reason : Blood Pressure : / mmHG Vent. Rate : 060 BPM Atrial Rate : 058 BPM P-R Int : 000 ms QRS Dur : 160 ms QT Int : 442 ms P-R-T Axes : 000 -78 057 degrees QTc Int : 442 ms POOR DATA QUALITY, INTERPRETATION MAY BE ADVERSELY AFFECTED Ventricular-paced rhythm ABNORMAL ECG WHEN COMPARED WITH ECG OF 12-JUN-2019 08:07, PREMATURE VENTRICULAR COMPLEXES ARE NO LONGER PRESENT VENT. RATE HAS DECREASED BY 27 BPM Confirmed by Margot Lawrence ([id number]) on 06/10/2020 9:55:51 AM Referred By: Confirmed By:Margot Lawrence
== END 2020-06-10 01:29 | disposition home or self-care (01) ==
LOC: JER 20:40
PROC: 3E0333Z Introduction of Anti-inflammatory into Peripheral Vein, Percutaneous Approach (ICD-10-PCS; principal; 2020-06-09)
DX: S09.90XA Unspecified injury of head, initial encounter (principal)
CPT/HCPCS: 36415; 70450-TC; 71045-TC-FY; 72125-TC; 80053; 84484; 85025; 85610; 85730; 93005; 93010; 99285-25; J0131

== ENCOUNTER 2020-06-16 01:30 | Observation (INO) | payer MEDICARE, OTHER ==
[2020-06-16 01:41] VITALS: BMI 27.4
--- NOTE | 2020-06-16 02:09 | PDOC ---
History of Present Illness - General Chief Complaint: Blood Pressure Problem Stated Complaint: HIGH BLOOD PRESSURE Time Seen by Provider: 06/16/20 01:47 - History of Present Illness Initial Comments: 06/21/20 15:38 75yo M hx HTN, HLD, COPD, DA, Hypothyroid, CAD s/p CABG, Afib s/p PM, leaky valve repair (single QUINTANILLA to the LAD and tissue MVR on 06/04/2019) BIBA c/o high BP. midnight BP 185/unknown but thinks machine wrong. Transient episode of dizziness, diaphoresis, and headache. Took 10mg ?omesa (believes BP med) with improvement in sx. Asymptomatic now. Past History - Medical History Allergies/Adverse Reactions: Allergies Allergy/AdvReac Type Severity Reaction Status Date / Time metoprolol AdvReac Intermediate Verified 06/16/20 01:39 Home Medications: Ambulatory Orders Dutasteride/Tamsulosin HCl [Jazmin 0.5-0.4 mg Capsule] 1 each PO PRN 03/06/15 Montelukast Na [Singulair -] 10 mg PO HS 03/06/15 Olmesartan Medoxomil [Benicar -] 20 mg PO BID 03/06/15 Tiotropium [place] [Spiriva] 1 inh PO DAILY PRN 03/06/15 Albuterol 0.083% Nebulizer Wendy [Ventolin 0.083% Nebulizer Soln -] 1 neb NEB Q6H 01/05/17 Levothyroxine [Synthroid -] 75 mcg PO DAILY 01/05/17 Salmeterol/Fluticasone [Advair 250Mcg/50Mcg -] 1 inh PO BID 01/05/17 Atorvastatin Calcium 40 mg PO DAILY 03/04/19 Nitroglycerin Sublingual [Nitrostat -] 0.4 mg SL Q5M PRN tab 03/06/19 Sennosides [Senna -] 2 tab PO HS tablet 03/06/19 Guaifenesin [Robitussin -] 10 ml PO Q6H PRN cup 06/14/19 Aspirin [Aspirin EC] 81 mg PO DAILY 08/11/19 Diltiazem HCl [Diltiazem 24Hr ER] 120 mg PO DAILY 08/11/19 Docusate Sodium [Doc-Q-Lace] 300 mg PO DAILY 08/11/19 Fluticasone/Salmeterol [Advair 250-50 Diskus] 1 each IH DAILY 08/11/19 Furosemide 20 mg PO DAILY 08/11/19 Umeclidinium [place] [Incruse Ellipta] 62.5 mcg IH DAILY 08/11/19 Warfarin Sodium 4 mg PO Q2D 08/11/19 Asthma: Yes Cancer: No Cardiac Disorders: (Afib,CAD, Leaky valve) CVA: No COPD: (Yes, O2 at home) Dementia: No Diabetes: No GI Disorders: No Disorders: No HTN: Yes Hypercholesterolemia: Yes Liver Disease: No Seizures: No Thyroid Disease: Yes (hypothyroid) - Surgical History Abdominal Surgery: No Appendectomy: No Cardiac Surgery: (Yes, CABG) Cholecystectomy: No Lung Surgery: No Neurologic Surgery: No Orthopedic Surgery: Yes (hand sx) - Immunization History Immunization Up to Date: Yes - Psycho-Social/Smoking History Smoking Status: No Smoking History: Never smoked Years of Tobacco Use: 40 Have you smoked in the past 12 months: No Number of Cigarettes Smoked Daily: 0 If you are a former smoker, when did you quit?: 20 years ago Information on smoking cessation initiated: No - Substance Abuse Hx (Audit-C & DAST Scrn) How often the patient has a drink containing alcohol: Never Score: In Men: 4 or > Positive; In Women: 3 or > Positive: 0 Screen Result (Pos requires Nsg. Audit-10AR): Negative In the last yr the pt used illegal drug/Rx for NonMed reason: No Score: Yes response is considered Positive: 0 Screen Result (Positive result requires Nsg. DAST-10): Negative Review of Systems - Review of Systems Able to Perform ROS?: Yes Constitutional: Yes: Diaphoresis. No: Chills, Fever HEENTM: No: Recent change in vision, Nose Congestion Respiratory: No: Cough, Shortness of Breath Cardiac (ROS): No: Chest Pain, Palpitations ABD/GI: No: Constipated, Diarrhea, Nausea, Vomiting : No: Burning, Flank Pain Musculoskeletal: No: Back Pain, Muscle Weakness Integumentary: No: Bruising, Flushing Neurological: Yes: Headache, Dizziness. No: Numbness, Paresthesia, Seizure, Weakness, Unsteady Gait, Ataxia Psychiatric: No: Anxiety, Depression Endocrine: No: Intolerance to Cold, Intolerance to Heat Hematologic/Lymphatic: No: Anemia, Blood Clots *Physical Exam - Vital Signs Last Vital Signs Temp Pulse Resp BP Pulse Ox 99.0 F 59 L 18 169/72 100 06/16/20 01:39 06/16/20 01:39 06/16/20 01:39 06/16/20 01:39 06/16/20 01:39 - Physical Exam General Appearance: Yes: Nourished, Appropriately Dressed, Obese. No: Apparent Distress HEENT: positive: EOMI, CARRIE, Normal ENT Inspection Neck: positive: Supple Respiratory/Chest: positive: Lungs Clear, Normal Breath Sounds. negative: Respiratory Distress, Accessory Muscle Use Cardiovascular: positive: Regular Rhythm, Regular Rate, Edema Gastrointestinal/Abdominal: positive: Soft. negative: Tender, Guarding, Rebound, Tenderness Musculoskeletal: positive: Normal Inspection. negative: CVA Tenderness Extremity: positive: Normal Capillary Refill, Normal Inspection, Normal Range of Motion Integumentary: positive: Normal Color, Warm, Diaphoresis Neurologic: positive: front office help II-XII NML intact, Fully Oriented, Alert, Normal Mood/Affect, Normal Response, Motor Strength 5/5. negative: Abnormal Cranial NS, Sensory Deficit ED Treatment Course - LABORATORY CBC & Chemistry Diagram: 06/16/20 02:20 06/16/20 02:20 Medical Decision Making - Medical Decision Making 06/16/20 02:10 75yo M hx HTN, HLD, COPD, DA, Hypothyroid, CAD s/p CABG, Afib s/p PM, leaky v alve repair (single QUINTANILLA to the LAD and tissue MVR on 06/04/2019) BIBA with high BP and transient episode of dizziness, diaphoresis, and headache. Took 10mg ?omesa (believes BP med) with improvement in sx. Asymptomatic now. PE notable for obese, 1+ PE BLE, diaphoretic Hemodynamically stable, afebrile, neurologically intact. Ddx: hypertensive emergency, ACS/CT, arrhythmia, PNA, ICH, stroke, UTI, infection, metabolic derangement, anemia -EKG -CXR -CBC,CMP,BNP,Cardiac profile,UA/UC -CTH -Dispo: likely tele obs ACS r/o EKG reviewed: ventricular paced rhythm, 60bpm, QTc 458ms, possible <2mm AGUSTIN in V3, no reciprocal changes, no significant change compared to prior 06/16/20 03:21 Labs reviewed. Notable for trop neg, BNP 480. CTH reviewed: no acute pathology 2nd EKG possible evolving -Repeat EKG in half hour -2nd trop @0520 06/16/20 03:35 CXR reviewed: no acute pathology 06/16/20 04:47 EKG: no evolution 2nd trop @0520 Admit tele obs ACS r/o Discharge - Discharge Information Problems reviewed: Yes Clinical Impression/Diagnosis: Diaphoresis, Abnormal EKG Condition: Guarded Disposition: AGAINST MEDICAL ADVICE - Admission Yes - Follow up/Referral - Patient Discharge Instructions - Post Discharge Activity
--- NOTE | 2020-06-16 02:13 | PDOC ---
Attending Attestation - Resident Resident Name: Amita Gunderson - ED Attending Attestation I have performed the following: I have examined & evaluated the patient, The case was reviewed & discussed with the resident, I agree w/resident's findings & plan - HPI HPI: 06/29/20 01:06 Transient episode of dizziness, diaphoresis, and headache. - Physicial Exam PE: 06/29/20 01:06 Agree with resident exam - Medical Decision Making 06/16/20 03:34 Patient Name: PAYTON PIZANO THIS IS A PRELIMINARY REPORT DATE OF SERVICE: 2020-06-16 02:29:53 IMAGES: 240 EXAM: HEAD CT WITHOUT CONTRAST HISTORY: Hypertensive emergency COMPARISON: June 09, 2020 FINDINGS No acute intracranial abnormality is identified. No hemorrhage. No mass. No visible infarct. The skull is intact. Bilateral nasal bone fractures and deformity of the right zygomatic arch are noted. These were present on the prior scan and are likely chronic. 06/29/20 01:06 Pt will be admitted for 24 hrs observation/full admission for presyncope workup. Discharge - Discharge Information Problems reviewed: Yes Clinical Impression/Diagnosis: Diaphoresis, Abnormal EKG Condition: Guarded Disposition: AGAINST MEDICAL ADVICE - Follow up/Referral - Patient Discharge Instructions - Post Discharge Activity
[2020-06-16 02:46] LABS: BASO % 0.6 % (0-2.0); EOS % 3.5 % (0-4.5); HEMATOCRIT 38.5 % (35.4-49); HEMOGLOBIN 12.9 GM/dL (11.7-16.9); LYMPH % 24.7 % (8-40); MCHC 33.6 g/dl (32.0-35.9); MEAN CELL VOLUME 89.4 fl (80-96); NEUT % 58.2 % (42.8-82.8); PLATELET COUNT 175 K/MM3 (134-434); RBC 4.31 M/mm3 (4.00-5.60); RDW 14.9 % (11.9-15.9); WHITE BLOOD COUNT 6.3 K/mm3 (4.0-10.0)
[2020-06-16 02:57] LABS: INR 1.17 (0.83-1.09); PROTHROMBIN TIME (PATIENT) 13.8 SEC (9.7-13.0)
[2020-06-16 03:00] LABS: ACTIVATED PTT 28.2 SECONDS (25.2-36.5)
[2020-06-16 03:10] LABS: ALBUMIN 3.7 g/dl (3.4-5.0); ALK PHOS 66 U/L (45-117); ANION GAP 10 MMOL/L (8-16); BILIRUBIN,TOTAL 0.3 mg/dL (0.2-1); BLOOD UREA NITROGEN 18.6 mg/dL (7-18); CALCIUM 8.3 mg/dL (8.5-10.1); CHLORIDE 108 mmol/L (98-107); CO2 24 mmol/L (21-32); CREATININE 1.3 mg/dL (0.55-1.3); GLUCOSE,RANDOM 86 mg/dL (74-106); N-TERMINAL BNP 480.8 pg/ml (5-450); POTASSIUM 3.8 mmol/L (3.5-5.1); SGOT/AST 26 U/L (15-37); SGPT/ALT 22 U/L (13-61); SODIUM 141 mmol/L (136-145); TOT PROT 6.9 g/dl (6.4-8.2)
[2020-06-16 03:23] VITALS: PULSE 60
[2020-06-16 06:00] LABS: PH,URINE 5.5 (5.0-8.0); URINE APPEARANCE CLEAR; URINE BILIRUBIN NEGATIVE (NEGATIVE); URINE COLOR YELLOW; URINE GLUCOSE (UA) NEGATIVE (NEGATIVE); URINE KETONE NEGATIVE (NEGATIVE); URINE LEUK ESTERASE NEGATIVE (NEGATIVE); URINE NITRITE NEGATIVE (NEGATIVE); URINE PROTEIN NEGATIVE (NEGATIVE); URINE UROBILINOGEN 0.2 mg/dL (0.2-1.0)
[2020-06-16 06:14] VITALS: TEMP 98.4
[2020-06-16 07:40] VITALS: BP 166/80
--- NOTE | 2020-06-16 08:36 | PN ---
Progress Note (short form) - Note Progress Note: 75yo M with h/o HTN, HLD, COPD, DA, Hypothyroidism, CAD s/p CABG, Afib s/p PPM insertion, MVR repair 2019 who originally presented with symptomatic hypertensive urgency. Per the record patient experienced dizziness, diaphoresis and headache. Patient was reported to take home medication which resolved his symptoms. Patient had nonspecific ECG changes with negative troponin x1. He received Head Ct with pending report (no gross abnormalities per my read). Unfortunately prior to my assessment patient left AMA and risks/benefits were explained to him by staff. Pt yelled to staff that he didn't need to be here and he'll follow with his own doctor. AMA paperwork was filled out. CBC, BMP 06/16/20 02:20 06/16/20 02:20 Vital Signs Temperature 98.4 F 06/16/20 06:13 Pulse Rate 60 06/16/20 07:39 Respiratory Rate 20 06/16/20 07:39 Blood Pressure 166/80 06/16/20 07:39 O2 Sat by Pulse Oximetry (%) 100 06/16/20 07:39 James Wilson DO - IM
--- NOTE | 2020-06-16 08:52 | EKG ---
Test Reason : Blood Pressure : / mmHG Vent. Rate : 060 BPM Atrial Rate : 340 BPM P-R Int : 000 ms QRS Dur : 164 ms QT Int : 458 ms P-R-T Axes : 000 140 027 degrees QTc Int : 458 ms Ventricular-paced rhythm ABNORMAL ECG WHEN COMPARED WITH ECG OF 09-JUN-2020 20:56, NO SIGNIFICANT CHANGE WAS FOUND Confirmed by Elis Nguyen ([id number]) on 06/16/2020 8:51:47 AM Referred By: Confirmed By:Elis Nguyen
--- NOTE | 2020-06-16 08:52 | EKG ---
Test Reason : Blood Pressure : / mmHG Vent. Rate : 060 BPM Atrial Rate : 060 BPM P-R Int : 000 ms QRS Dur : 164 ms QT Int : 490 ms P-R-T Axes : 000 -76 066 degrees QTc Int : 490 ms Ventricular-paced rhythm ABNORMAL ECG WHEN COMPARED WITH ECG OF 16-JUN-2020 03:15, NO SIGNIFICANT CHANGE WAS FOUND Confirmed by Elis Nguyen ([id number]) on 06/16/2020 8:51:22 AM Referred By: Confirmed By:Elis Nguyen
--- NOTE | 2020-06-16 08:52 | EKG ---
Test Reason : Blood Pressure : / mmHG Vent. Rate : 060 BPM Atrial Rate : 441 BPM P-R Int : 000 ms QRS Dur : 168 ms QT Int : 482 ms P-R-T Axes : 000 -75 030 degrees QTc Int : 482 ms Ventricular-paced rhythm ABNORMAL ECG WHEN COMPARED WITH ECG OF 16-JUN-2020 01:46, NO SIGNIFICANT CHANGE WAS FOUND Confirmed by Elis Nguyen ([id number]) on 06/16/2020 8:51:31 AM Referred By: Confirmed By:Elis Nguyen
== END 2020-06-16 08:00 | disposition left against medical advice (07) ==
LOC: JER 01:30 → JERBED 04:49
PROVIDERS: ADMIT Internal Medicine; ATTEND Internal Medicine
DX: R94.31 Abnormal electrocardiogram [ECG] [EKG] (principal); R61 Generalized hyperhidrosis; Z87.891 Personal history of nicotine dependence; J44.9 Chronic obstructive pulmonary disease, unspecified; E78.5 Hyperlipidemia, unspecified; I10 Essential (primary) hypertension; I25.10 Atherosclerotic heart disease of native coronary artery without angina pectoris; Z95.1 Presence of aortocoronary bypass graft; I48.91 Unspecified atrial fibrillation; Z95.0 Presence of cardiac pacemaker; E66.9 Obesity, unspecified; Z68.27 Body mass index [BMI] 27.0-27.9, adult; G47.33 Obstructive sleep apnea (adult) (pediatric); Z88.8 Allergy status to other drugs, medicaments and biological substances
CPT/HCPCS: 36415; 70450-TC; 71045-TC-FY; 80053; 81003; 82550; 82553; 83880; 84484; 85025; 85610; 85730; 93005; 93010; 99285-25; G0378; U0003

== ENCOUNTER 2020-10-26 16:03 | Inpatient (IN) | payer MEDICARE, OTHER ==
[2020-10-26] MEDS ORDERED: LACTATED RINGERS SOLUTION 1000 ML INFUS.BAG IV ONE (17:22)
[2020-10-26] MEDS ORDERED: ACETAMINOPHEN 1000 MG/100 ML BAG IVPB ONE (17:22)
[2020-10-26] MEDS ORDERED: ACETAMINOPHEN INJECTION 100 ML IVPB ONE (17:34)
[2020-10-26 17:52] LABS: BASO % 0.6 % (0-2.0); EOS % 0.1 % (0-4.5); HEMATOCRIT 42.4 % (35.4-49); HEMOGLOBIN 14.1 GM/dL (11.7-16.9); MCH 29.3 pg (25.7-33.7); MCHC 33.2 g/dl (32.0-35.9); MEAN CELL VOLUME 88.4 fl (80-96); MEAN PLT VOLUME 8.6 fl (7.5-11.1); MONO % 10.8 % (3.8-10.2); NEUT % 61.5 % (42.8-82.8); PLATELET COUNT 127 K/MM3 (134-434); RDW 15.3 % (11.9-15.9); WHITE BLOOD COUNT 4.8 K/mm3 (4.0-10.0)
[2020-10-26 18:23] LABS: ALBUMIN 3.4 g/dl (3.4-5.0); BILIRUBIN,TOTAL 0.5 mg/dL (0.2-1); CALCIUM 7.7 mg/dL (8.5-10.1); CREATININE 1.5 mg/dL (0.55-1.3); TOT PROT 7.1 g/dl (6.4-8.2)
[2020-10-26 19:06] LABS: INR 2.48 (0.83-1.09); PROTHROMBIN TIME (PATIENT) 29.7 SEC (9.7-13.0)
[2020-10-26 19:09] LABS: ACTIVATED PTT 39.6 SECONDS (25.2-36.5)
[2020-10-26 20:42] LABS: PH,URINE 5.5 (5.0-8.0); URINE APPEARANCE CLEAR; URINE BILIRUBIN NEGATIVE (NEGATIVE); URINE COLOR YELLOW; URINE GLUCOSE (UA) NEGATIVE (NEGATIVE); URINE KETONE NEGATIVE (NEGATIVE); URINE LEUK ESTERASE NEGATIVE (NEGATIVE); URINE NITRITE NEGATIVE (NEGATIVE); URINE PROTEIN TRACE (NEGATIVE); URINE UROBILINOGEN 0.2 mg/dL (0.2-1.0)
[2020-10-27] MEDS ORDERED: SODIUM CHLORIDE 1,000 ML IV SCH (06:30)
[2020-10-27 07:46] LABS: BASO % 0.3 % (0-2.0); EOS % 0.1 % (0-4.5); HEMATOCRIT 42.2 % (35.4-49); HEMOGLOBIN 14.1 GM/dL (11.7-16.9); LYMPH % 21.6 % (8-40); MCH 29.4 pg (25.7-33.7); MCHC 33.3 g/dl (32.0-35.9); MEAN CELL VOLUME 88.1 fl (80-96); MEAN PLT VOLUME 8.4 fl (7.5-11.1); MONO % 7.3 % (3.8-10.2); NEUT % 70.7 % (42.8-82.8); PLATELET COUNT 125 K/MM3 (134-434); RBC 4.79 M/mm3 (4.00-5.60); RDW 15.4 % (11.9-15.9); WHITE BLOOD COUNT 5.8 K/mm3 (4.0-10.0)
[2020-10-27 07:55] LABS: CALCIUM 7.9 mg/dL (8.5-10.1)
[2020-10-27 07:56] LABS: ALBUMIN 3.5 g/dl (3.4-5.0); BLOOD UREA NITROGEN 20.6 mg/dL (7-18); MAGNESIUM 1.8 mg/dL (1.8-2.4)
[2020-10-27 07:59] LABS: CREATININE 1.4 mg/dL (0.55-1.3); PHOSPHOROUS 3.5 mg/dL (2.5-4.9)
[2020-10-27 08:00] LABS: BILIRUBIN,TOTAL 0.4 mg/dL (0.2-1)
[2020-10-27] MEDS: LEVOTHYROXINE NA 88 MCG TABLET (FP) PO SCH (08:48)
[2020-10-27] MEDS ORDERED: PATIENT'S OWN MEDICATION (NON-FORMULARY) (Warfarin Sodium [Warfarin Sodium] 4 MG Tablet) PO SCH (10:00)
[2020-10-27] MEDS ORDERED: CEFTRIAXONE 1 GM/50 ML BAG ONE (11:04)
[2020-10-27] MEDS ORDERED: ASPIRIN COATED 81 MG TABLET.EC ONE (11:04)
[2020-10-27] MEDS: CEFTRIAXONE 1 GM in DEXTROSE 5%-WATER - 50 ML IVPB SCH (11:45)
[2020-10-27] MEDS: ASPIRIN COATED 81 MG TABLET.EC PO SCH (11:55)
[2020-10-27] MEDS ORDERED: DEXTROSE 5%-0.45% SALINE 1,000 ML IV SCH (14:45)
[2020-10-27] MEDS ORDERED: WARFARIN NA 3 MG TABLET PO SCH (18:00)
[2020-10-27 21:34] LABS: INR 2.73 (0.83-1.09); PROTHROMBIN TIME (PATIENT) 32.1 SEC (9.7-13.0)
[2020-10-27] MEDS: ATORVASTATIN CA 40 MG TABLET (FP) PO SCH (21:51)
[2020-10-27] MEDS: ASCORBIC ACID 500 MG TABLET (FP) PO SCH (21:51)
[2020-10-28] MEDS: ACETAMINOPHEN 325 MG TABLET (FP) PO PRN (02:24)
[2020-10-28] MEDS: LEVOTHYROXINE NA 88 MCG TABLET (FP) PO SCH (06:01)
[2020-10-28 09:11] LABS: INR 3.38 (0.83-1.09); PROTHROMBIN TIME (PATIENT) 40.1 SEC (9.7-13.0)
[2020-10-28] MEDS: CEFTRIAXONE 1 GM in DEXTROSE 5%-WATER - 50 ML IVPB SCH (09:49)
[2020-10-28] MEDS: ASCORBIC ACID 500 MG TABLET (FP) PO SCH ×2 (09:50→21:40)
[2020-10-28] MEDS: ASPIRIN COATED 81 MG TABLET.EC PO SCH (09:50)
[2020-10-28] MEDS: CHOLECALCIFEROL (VIT D3) 1,000 UNIT (25 MCG) TABLET PO SCH (09:50)
[2020-10-28] MEDS: ZINC SULFATE 220 MG CAPSULE (FP) PO SCH (09:50)
[2020-10-28 10:53] LABS: BASO % 0.3 % (0-2.0); EOS % 0.1 % (0-4.5); HEMATOCRIT 40.5 % (35.4-49); HEMOGLOBIN 13.5 GM/dL (11.7-16.9); LYMPH % 20.8 % (8-40); MCH 29.4 pg (25.7-33.7); MCHC 33.4 g/dl (32.0-35.9); MEAN CELL VOLUME 88.1 fl (80-96); MEAN PLT VOLUME 8.5 fl (7.5-11.1); MONO % 8.4 % (3.8-10.2); NEUT % 70.4 % (42.8-82.8); PLATELET COUNT 115 K/MM3 (134-434); RDW 15.2 % (11.9-15.9); WHITE BLOOD COUNT 5.2 K/mm3 (4.0-10.0)
[2020-10-28 13:11] LABS: ALBUMIN 3.8 g/dl (3.4-5.0); ALK PHOS 51 U/L (45-117); ANION GAP 14 MMOL/L (8-16); BILIRUBIN,TOTAL 0.5 mg/dL (0.2-1); BLOOD UREA NITROGEN 16.2 mg/dL (7-18); CALCIUM 8.1 mg/dL (8.5-10.1); CHLORIDE 113 mmol/L (98-107); CO2 14 mmol/L (21-32); CREATININE 1.5 mg/dL (0.55-1.3); GLUCOSE,RANDOM 82 mg/dL (74-106); SGOT/AST 119 U/L (15-37); SGPT/ALT 104 U/L (13-61); SODIUM 142 mmol/L (136-145); TOT PROT 7.5 g/dl (6.4-8.2)
[2020-10-28] MEDS ORDERED: LACTATED RINGERS SOLUTION 1,000 ML/1,000 ML INFUS.BAG IV SCH (14:00)
[2020-10-28 14:13] LABS: LDH QNS U/L (87-246)
[2020-10-28] MEDS: SODIUM BICARBONATE 650 MG TABLET PO SCH ×2 (14:58→21:40)
[2020-10-28] MEDS: ATORVASTATIN CA 40 MG TABLET (FP) PO SCH (21:40)
[2020-10-29] MEDS: LEVOTHYROXINE NA 88 MCG TABLET (FP) PO SCH (06:13)
[2020-10-29 08:48] LABS: BASO % 0.3 % (0-2.0); HEMATOCRIT 39.8 % (35.4-49); HEMOGLOBIN 13.2 GM/dL (11.7-16.9); LYMPH % 22.9 % (8-40); MCH 29.3 pg (25.7-33.7); MCHC 33.3 g/dl (32.0-35.9); MEAN CELL VOLUME 87.9 fl (80-96); MEAN PLT VOLUME 8.5 fl (7.5-11.1); NEUT % 70.8 % (42.8-82.8); PLATELET COUNT 110 K/MM3 (134-434); RBC 4.53 M/mm3 (4.00-5.60); RDW 15.1 % (11.9-15.9); WHITE BLOOD COUNT 5.2 K/mm3 (4.0-10.0)
[2020-10-29 08:54] LABS: PROTHROMBIN TIME (PATIENT) 51.4 SEC (9.7-13.0)
[2020-10-29 09:17] LABS: CALCIUM 7.6 mg/dL (8.5-10.1)
[2020-10-29 09:18] LABS: ALBUMIN 3.2 g/dl (3.4-5.0); BLOOD UREA NITROGEN 14.3 mg/dL (7-18)
[2020-10-29 09:21] LABS: CREATININE 1.4 mg/dL (0.55-1.3)
[2020-10-29 09:22] LABS: BILIRUBIN,TOTAL 0.5 mg/dL (0.2-1)
[2020-10-29 09:23] LABS: TOT PROT 6.3 g/dl (6.4-8.2)
[2020-10-29] MEDS: CEFTRIAXONE 1 GM in DEXTROSE 5%-WATER - 50 ML IVPB SCH (09:39)
[2020-10-29 10:22] LABS: INR 4.44 (0.83-1.09)
[2020-10-29] MEDS: ASCORBIC ACID 500 MG TABLET (FP) PO SCH ×2 (10:24→21:11)
[2020-10-29] MEDS: ZINC SULFATE 220 MG CAPSULE (FP) PO SCH (10:24)
[2020-10-29] MEDS: CHOLECALCIFEROL (VIT D3) 1,000 UNIT (25 MCG) TABLET PO SCH (10:24)
[2020-10-29] MEDS: SODIUM BICARBONATE 650 MG TABLET PO SCH ×2 (10:25→21:11)
[2020-10-29 14:48] VITALS: BMI 36.1
[2020-10-29] MEDS ORDERED: WARFARIN NA 5 MG TABLET PO SCH (18:00)
[2020-10-29] MEDS: ATORVASTATIN CA 40 MG TABLET (FP) PO SCH (21:11)
[2020-10-30] MEDS: ACETAMINOPHEN 325 MG TABLET (FP) PO PRN ×2 (06:27→19:26)
[2020-10-30] MEDS: LEVOTHYROXINE NA 88 MCG TABLET (FP) PO SCH (06:27)
[2020-10-30 09:32] LABS: PROTHROMBIN TIME (PATIENT) 57.2 SEC (9.7-13.0)
[2020-10-30 09:56] LABS: INR 4.87 (0.83-1.09)
[2020-10-30 10:02] LABS: BLOOD UREA NITROGEN 13.9 mg/dL (7-18)
[2020-10-30 10:05] LABS: ALBUMIN 2.9 g/dl (3.4-5.0); CREATININE 1.2 mg/dL (0.55-1.3)
[2020-10-30 10:06] LABS: BILIRUBIN,TOTAL 0.7 mg/dL (0.2-1); TOT PROT 5.9 g/dl (6.4-8.2)
[2020-10-30 10:11] LABS: CALCIUM 6.8 mg/dL (8.5-10.1)
[2020-10-30] MEDS: CEFTRIAXONE 1 GM in DEXTROSE 5%-WATER - 50 ML IVPB SCH (10:11)
[2020-10-30] MEDS: ZINC SULFATE 220 MG CAPSULE (FP) PO SCH (10:12)
[2020-10-30] MEDS: SODIUM BICARBONATE 650 MG TABLET PO SCH (10:12)
[2020-10-30] MEDS: ASCORBIC ACID 500 MG TABLET (FP) PO SCH ×2 (10:12→21:48)
[2020-10-30] MEDS: CHOLECALCIFEROL (VIT D3) 1,000 UNIT (25 MCG) TABLET PO SCH (10:12)
[2020-10-30] MEDS ORDERED: CALCIUM GLUCONATE 10% - 1,000 MG/10 ML VIAL IVPB ONE (12:28)
[2020-10-30] MEDS: CALCIUM 500MG/VIT-D 200 UNITS COMBO TABLET (FP) PO SCH (15:49)
[2020-10-30] MEDS: ATORVASTATIN CA 40 MG TABLET (FP) PO SCH (21:48)
[2020-10-31] MEDS: LEVOTHYROXINE NA 88 MCG TABLET (FP) PO SCH (06:35)
[2020-10-31 08:28] LABS: INR 3.96 (0.83-1.09)
[2020-10-31 08:48] LABS: ALBUMIN 2.8 g/dl (3.4-5.0)
[2020-10-31 08:49] LABS: CREATININE 1.2 mg/dL (0.55-1.3)
[2020-10-31 08:51] LABS: CALCIUM 7.6 mg/dL (8.5-10.1)
[2020-10-31 08:52] LABS: TOT PROT 5.9 g/dl (6.4-8.2)
[2020-10-31 08:53] LABS: BILIRUBIN,TOTAL 0.5 mg/dL (0.2-1)
[2020-10-31] MEDS: CALCIUM 500MG/VIT-D 200 UNITS COMBO TABLET (FP) PO SCH (10:17)
[2020-10-31] MEDS: CHOLECALCIFEROL (VIT D3) 1,000 UNIT (25 MCG) TABLET PO SCH (10:17)
[2020-10-31] MEDS: ASCORBIC ACID 500 MG TABLET (FP) PO SCH ×2 (10:18→23:31)
[2020-10-31] MEDS: ZINC SULFATE 220 MG CAPSULE (FP) PO SCH (10:18)
[2020-10-31] MEDS: CEFTRIAXONE 1 GM in DEXTROSE 5%-WATER - 50 ML IVPB SCH (10:19)
[2020-10-31] MEDS ORDERED: DEXAMETHASONE SOD PHOSPHATE 4 MG/1 ML VIAL IVPUSH SCH (12:45)
[2020-10-31] MEDS ORDERED: REMDESIVIR 200 MG in SODIUM CHLORIDE 210 ML IVPB ONE (12:45)
[2020-10-31] MEDS: ATORVASTATIN CA 40 MG TABLET (FP) PO SCH (23:31)
[2020-10-31] MEDS: ACETAMINOPHEN 325 MG TABLET (FP) PO PRN (23:31)
[2020-11-01] MEDS: guaiFENesin 200 MG/10 ML 10 ML UNIT-DOSE CUPS PO PRN ×2 (01:08→09:24)
[2020-11-01] MEDS ORDERED: ACETAMINOPHEN INJECTION 100 ML IVPB ONE (03:17)
[2020-11-01] MEDS ORDERED: LORazepam 2 MG/ML SDV VIAL IVPUSH ONE (03:28)
[2020-11-01 05:04] LABS: ARTERIAL BLD GAS O2 SATURATION 99.3 mmHg (95-98); ARTERIAL BLOOD GAS BASE EXCESS -5.2 mmol/L (-2-2); ARTERIAL BLOOD GAS PO2 191.5 mmHg (80-100); ARTERIAL BLOOD GAS pH 7.405 (7.350-7.450)
[2020-11-01 05:09] LABS: ALLENS TEST POSITIVE
[2020-11-01 05:10] LABS: VENT MODE S/T; VENT RATE 14
[2020-11-01] MEDS: LEVOTHYROXINE NA 88 MCG TABLET (FP) PO SCH (07:44)
[2020-11-01 08:00] LABS: INR 2.45 (0.83-1.09); PROTHROMBIN TIME (PATIENT) 28.9 SEC (9.7-13.0)
[2020-11-01] MEDS: ZINC SULFATE 220 MG CAPSULE (FP) PO SCH (09:24)
[2020-11-01] MEDS: CEFTRIAXONE 1 GM in DEXTROSE 5%-WATER - 50 ML IVPB SCH (09:24)
[2020-11-01] MEDS: ASCORBIC ACID 500 MG TABLET (FP) PO SCH ×2 (09:24→21:56)
[2020-11-01] MEDS: CALCIUM 500MG/VIT-D 200 UNITS COMBO TABLET (FP) PO SCH (09:24)
[2020-11-01] MEDS: ACETAMINOPHEN 325 MG TABLET (FP) PO PRN (09:24)
[2020-11-01] MEDS: CHOLECALCIFEROL (VIT D3) 1,000 UNIT (25 MCG) TABLET PO SCH (09:25)
[2020-11-01] MEDS: DEXAMETHASONE SOD PHOSPHATE 4 MG/1 ML VIAL IVPUSH SCH (09:25)
[2020-11-01] MEDS: REMDESIVIR 100 MG in SODIUM CHLORIDE 230 ML IVPB SCH (11:41)
[2020-11-01] MEDS ORDERED: FUROSEMIDE 40 MG/4 ML INJECTABLE VIAL IVPUSH ONE (13:00)
[2020-11-01] MEDS: WARFARIN NA 3 MG TABLET PO SCH (17:18)
[2020-11-01] MEDS: ATORVASTATIN CA 40 MG TABLET (FP) PO SCH (21:56)
[2020-11-01] MEDS: ALPRAZolam 0.25 MG TABLET PO PRN (21:56)
[2020-11-02] MEDS: LEVOTHYROXINE NA 88 MCG TABLET (FP) PO SCH (06:43)
[2020-11-02 08:04] LABS: BASO % 0.1 % (0-2.0); HEMATOCRIT 38.6 % (35.4-49); HEMOGLOBIN 13.3 GM/dL (11.7-16.9); LYMPH % 6.4 % (8-40); MCH 29.4 pg (25.7-33.7); MCHC 34.3 g/dl (32.0-35.9); MEAN CELL VOLUME 85.7 fl (80-96); MEAN PLT VOLUME 8.8 fl (7.5-11.1); MONO % 4.7 % (3.8-10.2); NEUT % 88.8 % (42.8-82.8); PLATELET COUNT 229 K/MM3 (134-434); RDW 15.2 % (11.9-15.9); WHITE BLOOD COUNT 9.7 K/mm3 (4.0-10.0)
[2020-11-02 08:22] LABS: ALBUMIN 2.7 g/dl (3.4-5.0); BLOOD UREA NITROGEN 23.4 mg/dL (7-18); CALCIUM 7.7 mg/dL (8.5-10.1)
[2020-11-02 08:23] LABS: INR 2.82 (0.83-1.09); PROTHROMBIN TIME (PATIENT) 33.1 SEC (9.7-13.0)
[2020-11-02 08:24] LABS: BILIRUBIN,TOTAL 0.8 mg/dL (0.2-1)
[2020-11-02 08:25] LABS: TOT PROT 6.1 g/dl (6.4-8.2)
[2020-11-02 08:26] LABS: CREATININE 1.1 mg/dL (0.55-1.3)
[2020-11-02] MEDS: CEFTRIAXONE 1 GM in DEXTROSE 5%-WATER - 50 ML IVPB SCH (10:49)
[2020-11-02] MEDS: DEXAMETHASONE SOD PHOSPHATE 4 MG/1 ML VIAL IVPUSH SCH (10:49)
[2020-11-02] MEDS: CHOLECALCIFEROL (VIT D3) 1,000 UNIT (25 MCG) TABLET PO SCH (10:49)
[2020-11-02] MEDS: ASCORBIC ACID 500 MG TABLET (FP) PO SCH ×2 (10:49→21:27)
[2020-11-02] MEDS: ZINC SULFATE 220 MG CAPSULE (FP) PO SCH (10:49)
[2020-11-02] MEDS: CALCIUM 500MG/VIT-D 200 UNITS COMBO TABLET (FP) PO SCH (10:49)
[2020-11-02] MEDS: REMDESIVIR 100 MG in SODIUM CHLORIDE 230 ML IVPB SCH (12:21)
[2020-11-02] MEDS: ALPRAZolam 0.25 MG TABLET PO PRN ×2 (12:21→21:34)
[2020-11-02] MEDS: PANTOPRAZOLE 40 MG TABLET PO SCH (13:50)
[2020-11-02] MEDS: AMINO ACIDS/PROTEIN HYDROLYS 30 ML LIQUID.PKT PO SCH (16:33)
[2020-11-02] MEDS: WARFARIN NA 3 MG TABLET PO SCH (17:13)
[2020-11-02] MEDS: ATORVASTATIN CA 40 MG TABLET (FP) PO SCH (21:27)
[2020-11-03] MEDS: LEVOTHYROXINE NA 88 MCG TABLET (FP) PO SCH (06:03)
[2020-11-03] MEDS: AMINO ACIDS/PROTEIN HYDROLYS 30 ML LIQUID.PKT PO SCH ×2 (10:01→17:27)
[2020-11-03] MEDS: DEXAMETHASONE SOD PHOSPHATE 4 MG/1 ML VIAL IVPUSH SCH (10:02)
[2020-11-03] MEDS: PANTOPRAZOLE 40 MG TABLET PO SCH (10:03)
[2020-11-03] MEDS: CALCIUM 500MG/VIT-D 200 UNITS COMBO TABLET (FP) PO SCH (10:03)
[2020-11-03] MEDS: ASCORBIC ACID 500 MG TABLET (FP) PO SCH ×2 (10:03→21:16)
[2020-11-03] MEDS: ZINC SULFATE 220 MG CAPSULE (FP) PO SCH (10:03)
[2020-11-03] MEDS: CHOLECALCIFEROL (VIT D3) 1,000 UNIT (25 MCG) TABLET PO SCH (10:07)
[2020-11-03] MEDS: CEFTRIAXONE 1 GM in DEXTROSE 5%-WATER - 50 ML IVPB SCH (10:10)
[2020-11-03] MEDS: REMDESIVIR 100 MG in SODIUM CHLORIDE 230 ML IVPB SCH (10:58)
[2020-11-03] MEDS ORDERED: INSULIN SLIDING SCALE (NOVOLOG) 1 VIAL SQ ONE (12:21)
[2020-11-03] MEDS: ALPRAZolam 0.25 MG TABLET PO PRN (14:14)
[2020-11-03] MEDS: WARFARIN NA 3 MG TABLET PO SCH (17:28)
[2020-11-03] MEDS: ATORVASTATIN CA 40 MG TABLET (FP) PO SCH (21:16)
[2020-11-04] MEDS: LEVOTHYROXINE NA 88 MCG TABLET (FP) PO SCH (06:31)
[2020-11-04 07:47] LABS: PROTHROMBIN TIME (PATIENT) 58.1 SEC (9.7-13.0)
[2020-11-04 08:07] LABS: ALBUMIN 2.6 g/dl (3.4-5.0); BLOOD UREA NITROGEN 29.8 mg/dL (7-18); CALCIUM 7.7 mg/dL (8.5-10.1)
[2020-11-04 08:11] LABS: BILIRUBIN,TOTAL 0.9 mg/dL (0.2-1)
[2020-11-04 08:16] LABS: INR 4.95 (0.83-1.09)
[2020-11-04] MEDS: DEXAMETHASONE SOD PHOSPHATE 4 MG/1 ML VIAL IVPUSH SCH (09:27)
[2020-11-04] MEDS: AMINO ACIDS/PROTEIN HYDROLYS 30 ML LIQUID.PKT PO SCH ×2 (10:04→17:52)
[2020-11-04] MEDS: ZINC SULFATE 220 MG CAPSULE (FP) PO SCH (10:05)
[2020-11-04] MEDS: ASCORBIC ACID 500 MG TABLET (FP) PO SCH ×2 (10:05→21:10)
[2020-11-04] MEDS: PANTOPRAZOLE 40 MG TABLET PO SCH (10:05)
[2020-11-04] MEDS: CHOLECALCIFEROL (VIT D3) 1,000 UNIT (25 MCG) TABLET PO SCH (10:06)
[2020-11-04] MEDS: CALCIUM 500MG/VIT-D 200 UNITS COMBO TABLET (FP) PO SCH (10:10)
[2020-11-04] MEDS: CEFTRIAXONE 1 GM in DEXTROSE 5%-WATER - 50 ML IVPB SCH (11:24)
[2020-11-04] MEDS: REMDESIVIR 100 MG in SODIUM CHLORIDE 230 ML IVPB SCH (11:41)
[2020-11-04] MEDS: guaiFENesin 200 MG/10 ML 10 ML UNIT-DOSE CUPS PO PRN (16:06)
[2020-11-04] MEDS: FUROSEMIDE 40 MG TABLET (FP) PO SCH (16:13)
[2020-11-04] MEDS: ALPRAZolam 0.25 MG TABLET PO PRN (17:53)
[2020-11-04] MEDS: ATORVASTATIN CA 40 MG TABLET (FP) PO SCH (21:10)
[2020-11-05] MEDS: LEVOTHYROXINE NA 88 MCG TABLET (FP) PO SCH (06:01)
[2020-11-05 07:00] LABS: PROTHROMBIN TIME (PATIENT) 60.5 SEC (9.7-13.0)
[2020-11-05 07:20] LABS: INR 5.25 (0.83-1.09)
[2020-11-05] MEDS: CEFTRIAXONE 1 GM in DEXTROSE 5%-WATER - 50 ML IVPB SCH (09:50)
[2020-11-05] MEDS: ASCORBIC ACID 500 MG TABLET (FP) PO SCH ×2 (09:51→22:46)
[2020-11-05] MEDS: PANTOPRAZOLE 40 MG TABLET PO SCH (09:51)
[2020-11-05] MEDS: FUROSEMIDE 40 MG TABLET (FP) PO SCH (09:51)
[2020-11-05] MEDS: CHOLECALCIFEROL (VIT D3) 1,000 UNIT (25 MCG) TABLET PO SCH (09:51)
[2020-11-05] MEDS: ZINC SULFATE 220 MG CAPSULE (FP) PO SCH (09:51)
[2020-11-05] MEDS: CALCIUM 500MG/VIT-D 200 UNITS COMBO TABLET (FP) PO SCH (09:51)
[2020-11-05] MEDS: DEXAMETHASONE SOD PHOSPHATE 4 MG/1 ML VIAL IVPUSH SCH (09:51)
[2020-11-05] MEDS: AMINO ACIDS/PROTEIN HYDROLYS 30 ML LIQUID.PKT PO SCH ×2 (09:51→17:01)
[2020-11-05] MEDS: ATORVASTATIN CA 40 MG TABLET (FP) PO SCH (22:46)
[2020-11-06] MEDS: LEVOTHYROXINE NA 88 MCG TABLET (FP) PO SCH (06:25)
[2020-11-06 07:59] LABS: HEMATOCRIT 40.3 % (35.4-49); HEMOGLOBIN 13.6 GM/dL (11.7-16.9); MCH 29.3 pg (25.7-33.7); MCHC 33.7 g/dl (32.0-35.9); MEAN CELL VOLUME 86.9 fl (80-96); MEAN PLT VOLUME 8.6 fl (7.5-11.1); PLATELET COUNT 321 K/MM3 (134-434); RBC 4.64 M/mm3 (4.00-5.60); RDW 15.3 % (11.9-15.9); WHITE BLOOD COUNT 13.7 K/mm3 (4.0-10.0)
[2020-11-06 08:16] LABS: CALCIUM 7.2 mg/dL (8.5-10.1)
[2020-11-06 08:17] LABS: ALBUMIN 2.7 g/dl (3.4-5.0); BLOOD UREA NITROGEN 29.6 mg/dL (7-18)
[2020-11-06 08:22] LABS: BILIRUBIN,TOTAL 0.9 mg/dL (0.2-1); TOT PROT 6.1 g/dl (6.4-8.2)
[2020-11-06 08:26] LABS: PROTHROMBIN TIME (PATIENT) 53.3 SEC (9.7-13.0)
[2020-11-06 09:50] LABS: INR 4.61 (0.83-1.09)
[2020-11-06] MEDS: ASCORBIC ACID 500 MG TABLET (FP) PO SCH ×2 (10:26→22:38)
[2020-11-06] MEDS: CALCIUM 500MG/VIT-D 200 UNITS COMBO TABLET (FP) PO SCH (10:26)
[2020-11-06] MEDS: ZINC SULFATE 220 MG CAPSULE (FP) PO SCH (10:27)
[2020-11-06] MEDS: CHOLECALCIFEROL (VIT D3) 1,000 UNIT (25 MCG) TABLET PO SCH (10:27)
[2020-11-06] MEDS: PANTOPRAZOLE 40 MG TABLET PO SCH (10:27)
[2020-11-06] MEDS: DEXAMETHASONE SOD PHOSPHATE 4 MG/1 ML VIAL IVPUSH SCH (10:27)
[2020-11-06] MEDS: FUROSEMIDE 40 MG TABLET (FP) PO SCH (10:27)
[2020-11-06] MEDS: AMINO ACIDS/PROTEIN HYDROLYS 30 ML LIQUID.PKT PO SCH ×2 (10:27→17:27)
[2020-11-06] MEDS: CEFTRIAXONE 1 GM in DEXTROSE 5%-WATER - 50 ML IVPB SCH (11:50)
[2020-11-06] MEDS: ATORVASTATIN CA 40 MG TABLET (FP) PO SCH (22:37)
[2020-11-06] MEDS: ALPRAZolam 0.25 MG TABLET PO PRN (22:38)
[2020-11-07] MEDS: LEVOTHYROXINE NA 88 MCG TABLET (FP) PO SCH (06:22)
[2020-11-07 08:29] LABS: INR 3.66 (0.83-1.09); PROTHROMBIN TIME (PATIENT) 43.4 SEC (9.7-13.0)
[2020-11-07] MEDS: CEFTRIAXONE 1 GM in DEXTROSE 5%-WATER - 50 ML IVPB SCH (10:06)
[2020-11-07] MEDS: FUROSEMIDE 40 MG TABLET (FP) PO SCH (10:06)
[2020-11-07] MEDS: AMINO ACIDS/PROTEIN HYDROLYS 30 ML LIQUID.PKT PO SCH ×2 (10:06→17:28)
[2020-11-07] MEDS: ASCORBIC ACID 500 MG TABLET (FP) PO SCH ×2 (10:07→21:41)
[2020-11-07] MEDS: ZINC SULFATE 220 MG CAPSULE (FP) PO SCH (10:07)
[2020-11-07] MEDS: PANTOPRAZOLE 40 MG TABLET PO SCH (10:07)
[2020-11-07] MEDS: CHOLECALCIFEROL (VIT D3) 1,000 UNIT (25 MCG) TABLET PO SCH (10:07)
[2020-11-07] MEDS: DEXAMETHASONE SOD PHOSPHATE 4 MG/1 ML VIAL IVPUSH SCH (10:07)
[2020-11-07] MEDS: CALCIUM 500MG/VIT-D 200 UNITS COMBO TABLET (FP) PO SCH (10:07)
[2020-11-07] MEDS: ATORVASTATIN CA 40 MG TABLET (FP) PO SCH (21:41)
[2020-11-08] MEDS: LEVOTHYROXINE NA 88 MCG TABLET (FP) PO SCH (06:06)
[2020-11-08 09:39] LABS: INR 2.63 (0.83-1.09); PROTHROMBIN TIME (PATIENT) 30.9 SEC (9.7-13.0)
[2020-11-08] MEDS: AMINO ACIDS/PROTEIN HYDROLYS 30 ML LIQUID.PKT PO SCH ×2 (10:33→17:15)
[2020-11-08] MEDS: DEXAMETHASONE SOD PHOSPHATE 4 MG/1 ML VIAL IVPUSH SCH (10:34)
[2020-11-08] MEDS: CHOLECALCIFEROL (VIT D3) 1,000 UNIT (25 MCG) TABLET PO SCH (10:36)
[2020-11-08] MEDS: guaiFENesin 200 MG/10 ML 10 ML UNIT-DOSE CUPS PO PRN ×2 (10:36→17:15)
[2020-11-08] MEDS: CALCIUM 500MG/VIT-D 200 UNITS COMBO TABLET (FP) PO SCH (10:37)
[2020-11-08] MEDS: ALPRAZolam 0.25 MG TABLET PO PRN ×2 (10:37→21:22)
[2020-11-08] MEDS: PANTOPRAZOLE 40 MG TABLET PO SCH (10:37)
[2020-11-08] MEDS: CEFTRIAXONE 1 GM in DEXTROSE 5%-WATER - 50 ML IVPB SCH (10:37)
[2020-11-08] MEDS: FUROSEMIDE 40 MG TABLET (FP) PO SCH (10:37)
[2020-11-08] MEDS: ASCORBIC ACID 500 MG TABLET (FP) PO SCH ×2 (10:37→21:22)
[2020-11-08] MEDS: ZINC SULFATE 220 MG CAPSULE (FP) PO SCH (10:37)
[2020-11-08] MEDS: WARFARIN NA 2 MG TABLET PO SCH (17:14)
[2020-11-08] MEDS: TIOTROPIUM BROMIDE 2.5 MCG (SPIRIVA) RESPIMAT INHALER IH SCH (17:15)
[2020-11-08] MEDS: ATORVASTATIN CA 40 MG TABLET (FP) PO SCH (21:22)
[2020-11-09] MEDS: LEVOTHYROXINE NA 88 MCG TABLET (FP) PO SCH (06:42)
[2020-11-09 08:34] LABS: HEMATOCRIT 40.3 % (35.4-49); HEMOGLOBIN 13.5 GM/dL (11.7-16.9); MCH 29.3 pg (25.7-33.7); MCHC 33.5 g/dl (32.0-35.9); MEAN CELL VOLUME 87.5 fl (80-96); MEAN PLT VOLUME 8.8 fl (7.5-11.1); PLATELET COUNT 218 K/MM3 (134-434); RBC 4.61 M/mm3 (4.00-5.60); RDW 15.2 % (11.9-15.9); WHITE BLOOD COUNT 15.6 K/mm3 (4.0-10.0)
[2020-11-09 08:55] LABS: ALBUMIN 2.8 g/dl (3.4-5.0); BLOOD UREA NITROGEN 37.7 mg/dL (7-18); INR 2.35 (0.83-1.09); PROTHROMBIN TIME (PATIENT) 28.2 SEC (9.7-13.0)
[2020-11-09 08:59] LABS: BILIRUBIN,TOTAL 0.8 mg/dL (0.2-1)
[2020-11-09 09:00] LABS: TOT PROT 6.1 g/dl (6.4-8.2)
[2020-11-09] MEDS: AMINO ACIDS/PROTEIN HYDROLYS 30 ML LIQUID.PKT PO SCH ×2 (09:32→18:13)
[2020-11-09] MEDS: PANTOPRAZOLE 40 MG TABLET PO SCH (09:32)
[2020-11-09] MEDS: CHOLECALCIFEROL (VIT D3) 1,000 UNIT (25 MCG) TABLET PO SCH (09:32)
[2020-11-09] MEDS: ZINC SULFATE 220 MG CAPSULE (FP) PO SCH (09:32)
[2020-11-09] MEDS: FUROSEMIDE 40 MG TABLET (FP) PO SCH (09:32)
[2020-11-09] MEDS: CALCIUM 500MG/VIT-D 200 UNITS COMBO TABLET (FP) PO SCH (09:32)
[2020-11-09] MEDS: DEXAMETHASONE SOD PHOSPHATE 4 MG/1 ML VIAL IVPUSH SCH (09:33)
[2020-11-09] MEDS: ASCORBIC ACID 500 MG TABLET (FP) PO SCH ×2 (09:33→22:08)
[2020-11-09] MEDS: TIOTROPIUM BROMIDE 2.5 MCG (SPIRIVA) RESPIMAT INHALER IH SCH (10:05)
[2020-11-09] MEDS: WARFARIN NA 2 MG TABLET PO SCH (18:33)
[2020-11-09] MEDS ORDERED: WARFARIN NA 1 MG TABLET PO ONE (19:57)
[2020-11-09] MEDS: ATORVASTATIN CA 40 MG TABLET (FP) PO SCH (22:08)
[2020-11-09] MEDS: ALBUTEROL SO4 HFA INHALER IH SCH (22:08)
[2020-11-09] MEDS: ALPRAZolam 0.25 MG TABLET PO PRN (22:09)
[2020-11-10] MEDS: ALBUTEROL SO4 HFA INHALER IH SCH ×5 (02:15→20:33)
[2020-11-10] MEDS: LEVOTHYROXINE NA 88 MCG TABLET (FP) PO SCH (06:01)
[2020-11-10] MEDS: AMINO ACIDS/PROTEIN HYDROLYS 30 ML LIQUID.PKT PO SCH ×2 (08:35→17:35)
[2020-11-10 08:37] LABS: INR 2.27 (0.83-1.09); PROTHROMBIN TIME (PATIENT) 26.8 SEC (9.7-13.0)
[2020-11-10] MEDS: DEXAMETHASONE SOD PHOSPHATE 4 MG/1 ML VIAL IVPUSH SCH (11:15)
[2020-11-10] MEDS: CHOLECALCIFEROL (VIT D3) 1,000 UNIT (25 MCG) TABLET PO SCH (11:16)
[2020-11-10] MEDS: TIOTROPIUM BROMIDE 2.5 MCG (SPIRIVA) RESPIMAT INHALER IH SCH (11:16)
[2020-11-10] MEDS: CALCIUM 500MG/VIT-D 200 UNITS COMBO TABLET (FP) PO SCH (11:16)
[2020-11-10] MEDS: ASCORBIC ACID 500 MG TABLET (FP) PO SCH ×2 (11:16→21:28)
[2020-11-10] MEDS: ZINC SULFATE 220 MG CAPSULE (FP) PO SCH (11:16)
[2020-11-10] MEDS: FUROSEMIDE 40 MG TABLET (FP) PO SCH (11:16)
[2020-11-10] MEDS: PANTOPRAZOLE 40 MG TABLET PO SCH (11:16)
[2020-11-10] MEDS: ALPRAZolam 0.25 MG TABLET PO PRN (11:16)
[2020-11-10] MEDS: WARFARIN NA 3 MG TABLET PO SCH (17:36)
[2020-11-10] MEDS: ATORVASTATIN CA 40 MG TABLET (FP) PO SCH (21:28)
[2020-11-11] MEDS: ALBUTEROL SO4 HFA INHALER IH SCH ×4 (01:19→20:32)
[2020-11-11] MEDS: LEVOTHYROXINE NA 88 MCG TABLET (FP) PO SCH (06:24)
[2020-11-11 08:44] LABS: INR 2.56 (0.83-1.09); PROTHROMBIN TIME (PATIENT) 30.6 SEC (9.7-13.0)
[2020-11-11 08:47] LABS: BASO % 0.1 % (0-2.0); HEMATOCRIT 40.3 % (35.4-49); HEMOGLOBIN 13.6 GM/dL (11.7-16.9); LYMPH % 2.5 % (8-40); MCH 29.4 pg (25.7-33.7); MCHC 33.7 g/dl (32.0-35.9); MEAN CELL VOLUME 87.2 fl (80-96); MEAN PLT VOLUME 9.1 fl (7.5-11.1); MONO % 4.2 % (3.8-10.2); NEUT % 93.2 % (42.8-82.8); PLATELET COUNT 138 K/MM3 (134-434); RBC 4.62 M/mm3 (4.00-5.60); RDW 15.1 % (11.9-15.9); WHITE BLOOD COUNT 18.5 K/mm3 (4.0-10.0)
[2020-11-11 09:09] LABS: ALBUMIN 2.8 g/dl (3.4-5.0); BLOOD UREA NITROGEN 38.1 mg/dL (7-18); CALCIUM 7.7 mg/dL (8.5-10.1)
[2020-11-11 09:10] LABS: BILIRUBIN,TOTAL 1.1 mg/dL (0.2-1); TOT PROT 6.3 g/dl (6.4-8.2)
[2020-11-11] MEDS: AMINO ACIDS/PROTEIN HYDROLYS 30 ML LIQUID.PKT PO SCH ×2 (10:53→17:51)
[2020-11-11] MEDS: DEXAMETHASONE SOD PHOSPHATE 4 MG/1 ML VIAL IVPUSH SCH (10:53)
[2020-11-11] MEDS: PANTOPRAZOLE 40 MG TABLET PO SCH (10:54)
[2020-11-11] MEDS: ZINC SULFATE 220 MG CAPSULE (FP) PO SCH (10:54)
[2020-11-11] MEDS: CALCIUM 500MG/VIT-D 200 UNITS COMBO TABLET (FP) PO SCH (10:54)
[2020-11-11] MEDS: FUROSEMIDE 40 MG TABLET (FP) PO SCH (10:54)
[2020-11-11] MEDS: CHOLECALCIFEROL (VIT D3) 1,000 UNIT (25 MCG) TABLET PO SCH (10:54)
[2020-11-11] MEDS: ASCORBIC ACID 500 MG TABLET (FP) PO SCH ×2 (10:54→22:39)
[2020-11-11] MEDS: TIOTROPIUM BROMIDE 2.5 MCG (SPIRIVA) RESPIMAT INHALER IH SCH (11:30)
[2020-11-11] MEDS: WARFARIN NA 3 MG TABLET PO SCH (17:51)
[2020-11-11] MEDS: ATORVASTATIN CA 40 MG TABLET (FP) PO SCH (22:39)
[2020-11-11] MEDS: guaiFENesin 200 MG/10 ML 10 ML UNIT-DOSE CUPS PO PRN (23:49)
[2020-11-12] MEDS: LEVOTHYROXINE NA 88 MCG TABLET (FP) PO SCH (06:22)
[2020-11-12] MEDS: ALBUTEROL SO4 HFA INHALER IH SCH ×3 (06:23→17:54)
[2020-11-12] MEDS: AMINO ACIDS/PROTEIN HYDROLYS 30 ML LIQUID.PKT PO SCH ×2 (07:52→17:54)
[2020-11-12] MEDS: DEXAMETHASONE SOD PHOSPHATE 4 MG/1 ML VIAL IVPUSH SCH (09:26)
[2020-11-12] MEDS: CALCIUM 500MG/VIT-D 200 UNITS COMBO TABLET (FP) PO SCH (09:30)
[2020-11-12] MEDS: guaiFENesin 200 MG/10 ML 10 ML UNIT-DOSE CUPS PO PRN (09:30)
[2020-11-12] MEDS: FUROSEMIDE 40 MG TABLET (FP) PO SCH (09:30)
[2020-11-12] MEDS: PANTOPRAZOLE 40 MG TABLET PO SCH (09:30)
[2020-11-12] MEDS: ASCORBIC ACID 500 MG TABLET (FP) PO SCH ×2 (09:30→21:12)
[2020-11-12] MEDS: TIOTROPIUM BROMIDE 2.5 MCG (SPIRIVA) RESPIMAT INHALER IH SCH (09:30)
[2020-11-12] MEDS: ZINC SULFATE 220 MG CAPSULE (FP) PO SCH (09:30)
[2020-11-12] MEDS: CHOLECALCIFEROL (VIT D3) 1,000 UNIT (25 MCG) TABLET PO SCH (09:30)
[2020-11-12] MEDS ORDERED: PT OWN MED DRAWER 7, Y5N ONE (17:47)
[2020-11-12] MEDS: WARFARIN NA 3 MG TABLET PO SCH (18:34)
[2020-11-12] MEDS: ATORVASTATIN CA 40 MG TABLET (FP) PO SCH (21:12)
[2020-11-13] MEDS: LEVOTHYROXINE NA 88 MCG TABLET (FP) PO SCH (07:06)
[2020-11-13 07:10] LABS: BASO % 0.2 % (0-2.0); HEMOGLOBIN 14.3 GM/dL (11.7-16.9); LYMPH % 4.7 % (8-40); MCH 29.7 pg (25.7-33.7); MCHC 33.3 g/dl (32.0-35.9); MEAN CELL VOLUME 89.3 fl (80-96); MEAN PLT VOLUME 9.9 fl (7.5-11.1); NEUT % 89.1 % (42.8-82.8); PLATELET COUNT 122 K/MM3 (134-434); RBC 4.82 M/mm3 (4.00-5.60); RDW 15.3 % (11.9-15.9); WHITE BLOOD COUNT 19.4 K/mm3 (4.0-10.0)
[2020-11-13 07:20] LABS: INR 3.08 (0.83-1.09); PROTHROMBIN TIME (PATIENT) 36.1 SEC (9.7-13.0)
[2020-11-13 07:30] LABS: ALBUMIN 2.9 g/dl (3.4-5.0); BLOOD UREA NITROGEN 43.5 mg/dL (7-18); CALCIUM 8.1 mg/dL (8.5-10.1)
[2020-11-13 07:33] LABS: BILIRUBIN,TOTAL 1.5 mg/dL (0.2-1); TOT PROT 7.4 g/dl (6.4-8.2)
[2020-11-13] MEDS ORDERED: INSULIN REGULAR HUMAN 100 UNITS/ML *VIAL IVPUSH ONE (08:13)
[2020-11-13] MEDS ORDERED: CALCIUM GLUCONATE 10% - 1,000 MG/10 ML VIAL IVPUSH ONE (08:14)
[2020-11-13] MEDS ORDERED: DEXTROSE 50%-WATER - 25 GM/50 ML VIAL IVPUSH ONE (08:14)
[2020-11-13] MEDS: AMINO ACIDS/PROTEIN HYDROLYS 30 ML LIQUID.PKT PO SCH ×2 (08:58→16:49)
[2020-11-13] MEDS ORDERED: DEXTROSE 50%-WATER 25 GM/50 ML DISP.SYRIN ONE (09:02)
[2020-11-13 09:55] LABS: ANISOCYTOSIS 0; MACROCYTOSIS 0; PLATELET ESTIMATE DECREASED
[2020-11-13] MEDS: ZINC SULFATE 220 MG CAPSULE (FP) PO SCH (10:01)
[2020-11-13] MEDS: CHOLECALCIFEROL (VIT D3) 1,000 UNIT (25 MCG) TABLET PO SCH (10:01)
[2020-11-13] MEDS: PANTOPRAZOLE 40 MG TABLET PO SCH (10:01)
[2020-11-13] MEDS: FUROSEMIDE 40 MG TABLET (FP) PO SCH (10:02)
[2020-11-13] MEDS: ASCORBIC ACID 500 MG TABLET (FP) PO SCH ×2 (10:02→22:26)
[2020-11-13] MEDS: DEXAMETHASONE SOD PHOSPHATE 4 MG/1 ML VIAL IVPUSH SCH (10:02)
[2020-11-13] MEDS ORDERED: PT OWN MED DRAWER 7, Y5N ONE ×3 (10:03→16:45)
[2020-11-13] MEDS: CALCIUM 500MG/VIT-D 200 UNITS COMBO TABLET (FP) PO SCH (10:04)
[2020-11-13 12:03] LABS: ALBUMIN 2.8 g/dl (3.4-5.0); BLOOD UREA NITROGEN 43.9 mg/dL (7-18); CALCIUM 8.2 mg/dL (8.5-10.1)
[2020-11-13 12:06] LABS: CREATININE 1.1 mg/dL (0.55-1.3)
[2020-11-13 12:07] LABS: BILIRUBIN,TOTAL 1.4 mg/dL (0.2-1); TOT PROT 6.8 g/dl (6.4-8.2)
[2020-11-13] MEDS ORDERED: clonazePAM 0.5 MG TABLET PO PRN (13:02)
[2020-11-13] MEDS: WARFARIN NA 3 MG TABLET PO SCH (17:09)
[2020-11-13] MEDS: DEXTROSE 5%-0.45% SALINE 1,000 ML IV SCH (17:10)
[2020-11-13] MEDS: ALBUTEROL SO4 HFA INHALER IH SCH (20:03)
[2020-11-13] MEDS: TIOTROPIUM BROMIDE 2.5 MCG (SPIRIVA) RESPIMAT INHALER IH SCH (20:04)
[2020-11-13] MEDS: ATORVASTATIN CA 40 MG TABLET (FP) PO SCH (22:26)
[2020-11-14] MEDS: LEVOTHYROXINE NA 88 MCG TABLET (FP) PO SCH (07:22)
[2020-11-14 08:06] LABS: BASO % 0.2 % (0-2.0); HEMATOCRIT 40.1 % (35.4-49); HEMOGLOBIN 13.4 GM/dL (11.7-16.9); LYMPH % 2.1 % (8-40); MCH 29.3 pg (25.7-33.7); MCHC 33.4 g/dl (32.0-35.9); MEAN CELL VOLUME 87.8 fl (80-96); MEAN PLT VOLUME 9.5 fl (7.5-11.1); MONO % 4.4 % (3.8-10.2); NEUT % 93.3 % (42.8-82.8); PLATELET COUNT 121 K/MM3 (134-434); RBC 4.56 M/mm3 (4.00-5.60); RDW 15.1 % (11.9-15.9); WHITE BLOOD COUNT 19.3 K/mm3 (4.0-10.0)
[2020-11-14 08:19] LABS: ALBUMIN 2.7 g/dl (3.4-5.0); BLOOD UREA NITROGEN 46.7 mg/dL (7-18); MAGNESIUM 2.6 mg/dL (1.8-2.4)
[2020-11-14 08:22] LABS: CREATININE 1.1 mg/dL (0.55-1.3); PHOSPHOROUS 3.2 mg/dL (2.5-4.9)
[2020-11-14 08:23] LABS: BILIRUBIN,TOTAL 1.1 mg/dL (0.2-1)
[2020-11-14 08:24] LABS: TOT PROT 6.5 g/dl (6.4-8.2)
[2020-11-14] MEDS: AMINO ACIDS/PROTEIN HYDROLYS 30 ML LIQUID.PKT PO SCH ×2 (10:51→17:10)
[2020-11-14 10:52] LABS: ANISOCYTOSIS 1+; MACROCYTOSIS 0; PLATELET ESTIMATE DECREASED; TOXIC GRANULATION 1+
[2020-11-14] MEDS: DEXAMETHASONE SOD PHOSPHATE 4 MG/1 ML VIAL IVPUSH SCH (10:59)
[2020-11-14] MEDS: FUROSEMIDE 40 MG TABLET (FP) PO SCH (11:28)
[2020-11-14] MEDS: CALCIUM 500MG/VIT-D 200 UNITS COMBO TABLET (FP) PO SCH (11:28)
[2020-11-14] MEDS: ZINC SULFATE 220 MG CAPSULE (FP) PO SCH (11:28)
[2020-11-14] MEDS: PANTOPRAZOLE 40 MG TABLET PO SCH (11:28)
[2020-11-14] MEDS: ASCORBIC ACID 500 MG TABLET (FP) PO SCH ×2 (11:29→23:27)
[2020-11-14] MEDS: CHOLECALCIFEROL (VIT D3) 1,000 UNIT (25 MCG) TABLET PO SCH (11:29)
[2020-11-14] MEDS ORDERED: morphine SULFATE 4 MG/ML VIAL IVPUSH ONE ×3 (12:00→22:47)
[2020-11-14] MEDS: DEXTROSE 5%-0.45% SALINE 1,000 ML IV SCH (17:47)
[2020-11-14] MEDS: PANTOPRAZOLE SODIUM 40 MG VIAL IVPUSH SCH (18:38)
[2020-11-14] MEDS: WARFARIN NA 3 MG TABLET PO SCH (18:38)
[2020-11-14] MEDS ORDERED: ACETAMINOPHEN 1000 MG/100 ML BAG IVPB PRN (20:23)
[2020-11-14 21:20] LABS: INR 5.02 (0.83-1.09)
[2020-11-14] MEDS ORDERED: clonazePAM 0.5 MG TABLET PO SCH (22:00)
[2020-11-15] MEDS: LEVOTHYROXINE NA 88 MCG TABLET (FP) PO SCH (06:33)
[2020-11-15] MEDS: DEXTROSE 5%-0.45% SALINE 1,000 ML IV SCH (06:34)
[2020-11-15 07:35] LABS: BASO % 0.5 % (0-2.0); HEMATOCRIT 40.9 % (35.4-49); HEMOGLOBIN 13.5 GM/dL (11.7-16.9); LYMPH % 2.1 % (8-40); MCH 29.3 pg (25.7-33.7); MCHC 33.1 g/dl (32.0-35.9); MEAN CELL VOLUME 88.4 fl (80-96); MEAN PLT VOLUME 9.8 fl (7.5-11.1); MONO % 4.5 % (3.8-10.2); NEUT % 92.9 % (42.8-82.8); PLATELET COUNT 128 K/MM3 (134-434); RBC 4.63 M/mm3 (4.00-5.60); RDW 15.4 % (11.9-15.9); WHITE BLOOD COUNT 22.9 K/mm3 (4.0-10.0)
[2020-11-15 07:39] LABS: PROTHROMBIN TIME (PATIENT) 64.7 SEC (9.7-13.0)
[2020-11-15 08:02] LABS: ALBUMIN 2.8 g/dl (3.4-5.0); BLOOD UREA NITROGEN 51.2 mg/dL (7-18); CALCIUM 7.4 mg/dL (8.5-10.1); MAGNESIUM 2.4 mg/dL (1.8-2.4)
[2020-11-15 08:06] LABS: CREATININE 1.2 mg/dL (0.55-1.3)
[2020-11-15 08:07] LABS: BILIRUBIN,TOTAL 1.5 mg/dL (0.2-1); TOT PROT 6.8 g/dl (6.4-8.2)
[2020-11-15] MEDS: AMINO ACIDS/PROTEIN HYDROLYS 30 ML LIQUID.PKT PO SCH ×2 (08:56→17:12)
[2020-11-15 09:01] LABS: INR 5.62 (0.83-1.09)
[2020-11-15] MEDS: DEXAMETHASONE SOD PHOSPHATE 4 MG/1 ML VIAL IVPUSH SCH (09:23)
[2020-11-15] MEDS: PANTOPRAZOLE SODIUM 40 MG VIAL IVPUSH SCH (09:23)
[2020-11-15] MEDS: ZINC SULFATE 220 MG CAPSULE (FP) PO SCH (09:23)
[2020-11-15] MEDS: CHOLECALCIFEROL (VIT D3) 1,000 UNIT (25 MCG) TABLET PO SCH (09:24)
[2020-11-15] MEDS: ASCORBIC ACID 500 MG TABLET (FP) PO SCH (09:24)
[2020-11-15] MEDS: CALCIUM 500MG/VIT-D 200 UNITS COMBO TABLET (FP) PO SCH (09:24)
[2020-11-15] MEDS ORDERED: AMINO ACIDS 4.25%/D5W 1,000 ML IV SCH ×2 (10:15→16:58)
[2020-11-15] MEDS ORDERED: LORazepam 2 MG/ML SDV VIAL IVPUSH PRN (10:41)
[2020-11-15] MEDS ORDERED: LEVOTHYROXINE SODIUM 100 MCG VIAL IVPUSH SCH (11:15)
[2020-11-15 11:20] LABS: ANISOCYTOSIS 2+; MACROCYTOSIS 1+; PLATELET ESTIMATE DECREASED
[2020-11-15] MEDS: LABETALOL HCL 5 MG/1 ML (100MG/20 ML VIAL) IVPUSH PRN ×2 (11:21→18:08)
[2020-11-15 14:12] VITALS: TEMP 97.7
[2020-11-15 18:26] VITALS: PULSE 60
[2020-11-15] MEDS ORDERED: morphine SULFATE 4 MG/ML VIAL IVPUSH ONE (19:26)
[2020-11-15] MEDS ORDERED: morphine SULFATE 4 MG/ML VIAL ONE (19:30)
[2020-11-15 20:15] VITALS: BP 105/70
== END 2020-11-15 21:43 | disposition expired | DRG 177 ==
LOC: JER 16:03 → JERBED 10-27 03:53 → J6WEST-2 10-27 17:28 → JICU 11-12 12:23 → J4W 11-13 21:33 → JICU 11-14 10:41
PROVIDERS: ADMIT Internal Medicine; ATTEND Internal Medicine
PROC: XW13325 Transfusion of Convalescent Plasma (Nonautologous) into Peripheral Vein, Percutaneous Approach, New Technology Group 5 (ICD-10-PCS; principal; 2020-11-01)
PROC: XW033E5 Introduction of Remdesivir Anti-infective into Peripheral Vein, Percutaneous Approach, New Technology Group 5 (ICD-10-PCS; 2020-11-01)
DX: U07.1 COVID-19 (principal); J12.82 Pneumonia due to coronavirus disease 2019; J96.01 Acute respiratory failure with hypoxia; N17.9 Acute kidney failure, unspecified; E87.2 Acidosis; A08.39 Other viral enteritis; I13.0 Hypertensive heart and chronic kidney disease with heart failure and stage 1 through stage 4 chronic kidney disease, or unspecified chronic kidney disease; I50.32 Chronic diastolic (congestive) heart failure; E86.0 Dehydration; N18.9 Chronic kidney disease, unspecified; I48.91 Unspecified atrial fibrillation; I25.10 Atherosclerotic heart disease of native coronary artery without angina pectoris; J44.9 Chronic obstructive pulmonary disease, unspecified; E78.5 Hyperlipidemia, unspecified; E03.9 Hypothyroidism, unspecified; E66.9 Obesity, unspecified; Z68.36 Body mass index [BMI] 36.0-36.9, adult; E83.51 Hypocalcemia; Z95.1 Presence of aortocoronary bypass graft; D72.829 Elevated white blood cell count, unspecified
CPT/HCPCS: 36415; 36430; 36600; 71045-TC-FY; 74176-TC; 80048; 80053; 81003; 82565; 82728; 82803; 82962; 83605; 83615; 83735; 84100; 84156; 84300; 84484; 85025; 85027; 85379; 85610; 85730; 86140; 86850; 86900; 86901; 87040; 87045; 87046; 87086; 87177; 87186; 87205; 87209; 87324; 87449; 87798; 93005; 93010; 94010; 94660; 99285-25; C9399; C9803; J0131; P9017; U0003